=== PATIENT | male | born 1945 | race Caucasian/White ===

== ENCOUNTER 2023-07-14 07:47 | Observation (INO) | payer MEDICARE, SELFPAY ==
[2023-07-14] VITALS (9 sets, daily range): BP systolic 112–160; BP diastolic 74–116; PULSE 88–104; RESP 14–19; TEMP 36.2–36.4; O2SAT 95–100; BMI 29.5
--- NOTE | ~2023-07-14 | XR_ITS ---
EXAMINATION: XR SHOULDER, LEFT CLINICAL INFORMATION: Shoulder pain COMPARISON: None available. TECHNIQUE: Three views of the left shoulder. FINDINGS: Moderate joint narrowing of the glenohumeral joint with bone spurs of the inferior glenoid and inferior periarticular bone of the humeral head. There is no bone erosion. No soft tissue calcification. The acromioclavicular joint is normal. 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
--- NOTE | ~2023-07-14 | CT_ITS ---
EXAMINATION: CT ANGIOGRAM OF THE CHEST WITH AND WITHOUT CONTRAST (CT PULMONARY ANGIOGRAM FOR PE) CLINICAL INFORMATION: Reason for Exam chest pain, new afib COMPARISON: None available. TECHNIQUE: Prior to contrast administration, noncontrast localization images were obtained. Subsequently, multidetector volumetric imaging was performed from the thoracic inlet to below the diaphragms following the administration of 80 mL Omnipaque 350 intravenous contrast. No contrast reaction reported Sagittal, coronal, and MIP oblique sagittal reformatted images were obtained on the CT workstation, uploaded to PACS, and reviewed. This CT examination was performed using dose optimization techniques as appropriate, variously including the following: *Automated exposure control *Adjustment of mA and/or kV according to patient size (this includes techniques or standardized protocols for targeted exams where dose is matched to indication/reason for exam; i.e. extremities or head) *Use of iterative reconstruction technique Total exam dose-length product 356 mGy-cm FINDINGS: QUALITY OF STUDY/CONTRAST BOLUS: Satisfactory. PULMONARY ARTERIES: No pulmonary emboli. THORACIC AORTA: Nonopacified due to PE protocol LUNG: Tiny calcified granuloma in the right middle lobe. Lungs otherwise clear. No consolidations or masses. PLEURA: No pleural effusion or pneumothorax. MEDIASTINUM: Mild cardiomegaly. No pericardial effusion. No significant mediastinal or hilar adenopathy. No evidence of septal bowing or right heart strain. CORONARY ARTERY CALCIFICATION: Present CHEST WALL/AXILLA: No axillary or internal mammary lymphadenopathy. OSSEOUS STRUCTURES: Spondylitic change noted in the thoracic spine. No fracture. UPPER ABDOMEN: Mild hepatic steatosis. Mild to moderate reflux of contrast into the hepatic veins to suggest elevated right heart pressures. CT/CT angio chest PE protocol IMPRESSION: No evidence for acute PE. No active disease. VTE: negative
--- NOTE | ~2023-07-14 | XR_ITS ---
EXAMINATION: XR CHEST CLINICAL INFORMATION: Left arm pain, hypertension COMPARISON: None available. TECHNIQUE: 2 views of the chest were obtained. FINDINGS: No significant abnormality is noted involving the heart, lungs, mediastinum, bony thorax or soft tissues. XR/XR chest 2V IMPRESSION: No acute cardiopulmonary disease.
--- NOTE | 2023-07-14 07:59 | ECG_ITS ---
Test Reason : left arm pain Blood Pressure : / mmHG Vent. Rate : 102 BPM Atrial Rate : 000 BPM P-R Int : 000 ms QRS Dur : 096 ms QT Int : 362 ms P-R-T Axes : 000 011 024 degrees QTc Int : 471 ms Atrial fibrillation with rapid ventricular response Abnormal ECG No previous ECGs available Referred By: Generic ED Physician Electronically Signed By:SAMIA RODRIGUEZ
--- NOTE | 2023-07-14 08:08 | ED.GENADULT ---
HPI - General Adult General Chief complaint: Chest Pain Stated complaint: L Arm Pain No Injury Time Seen by Provider: 07/14/23 08:08 Source: patient Mode of arrival: ambulatory Limitations: no limitations History of Present Illness HPI narrative: Patient is a 77-year-old male with no reported past medical history presenting to the emergency department with complaint of left-sided chest pain radiating down left arm this morning. States symptoms began after he got up to go to the bathroom and sat back down on his bed. Reports pain is worse with exertion, has improved somewhat since onset. Denies recent fever, dyspnea, cough or other URI symptoms. Denies palpitations. Denies any recent falls or other trauma. Also complaining of neck pain. Denies any weakness, numbness, tingling to left arm. MD complaint: chest pain Onset (ago): hour(s) Location: chest, left and upper extremity Radiation: neck Severity: severe Quality: aching Pain Consistency: constant Exacerbating factors: movement Associated symptoms: denies other symptoms Treatments prior to arrival: none Related Data Allergies Allergy/AdvReac Type Severity Reaction Status Date / Time No Known Allergies Allergy Verified 07/14/23 08:17 Review of Systems Review of Systems: As per HPI. Yes all other systems are reviewed and are negative Constitutional: Constitutional: Reports as per HPI PMF Social History Social History Smoked in Last 30 Days: No Use of substances other than those prescribed or required for medical reasons: No Advance Directives: Yes Advance Directives Information Provided: Yes Advance Directives on File: No Physical Exam ED Vital Signs: Vital Signs - 24 hr 07/14/23 08:15 07/14/23 08:19 07/14/23 10:16 Temperature 97.6 F 97.6 F Pulse Rate 98 100 88 Respiratory Rate 17 16 16 Blood Pressure 160/114 H 157/116 H 155/100 H Pulse Oximetry 95 99 100 Oxygen Delivery Method Room Air Room Air Room Air 07/14/23 13:08 Temperature 9705 F H Pulse Rate 92 Respiratory Rate 19 Blood Pressure 144/93 H Pulse Oximetry 100 Oxygen Delivery Method Room Air BMI result Body Mass Index 29.5 Vital signs have been reviewed and appear to be correct. Blood pressure elevated. Heart rate normal. Respiratory rate normal. Temperature normal. Oxygen saturation normal. Const General: cooperative, healthy appearing and no acute distress Orientation/consciousness: oriented to person, oriented to place, oriented to time and patient oriented x3 Limitations: no limitations HENKY Head: Yes normocephalic and Yes atraumatic Ears: external ears normal General nose exam: Normal external nose present Face and sinus: Yes face symmetric Mouth: oropharynx normal and moist mucous membranes Throat: Yes uvula midline Eyes Pupils: Equal, round and reactive pupils present Neck Neck: Yes normal visual inspection and Yes supple Resp Effort & Inspection: normal respiratory effort and able to speak in complete sentences Auscultation: clear to auscultation bilaterally Cardio Rate: regular rate Rhythm: regular rhythm Heart sounds: S1 normal heart sound present and S2 normal heart sound present GI Palpation (GI): Soft to palpation and nontender Auscultation: normoactive bowel sounds General: Yes no CVA tenderness Back/Spine/Pelvis Back: no CVA tenderness Skin General skin exam: elasticity normal and turgor normal Neuro General: oriented to person, oriented to place, oriented to time, patient oriented x3, tone normal, moves all extremities, Normal light touch and pain sensation, no focal motor deficits, CN's II-XI intact bilaterally and deep tendon reflexes 2+ bilaterally Cranial nerves: Yes Equal, round and reactive pupils present Cognition (Neuro): normal cognition Motor exam (neuro): 5/5 motor strength present throughout, Normal motor muscle tone present throughout and Motor abnormalities not present Sensory Exam: Normal double simultaneous stimulation for sensation Extrem General: Yes full ROM, Yes no pedal edema and Yes no calf tenderness Psych Mental Status: mental status grossly normal Affect: normal affect Thought process: Normal thought process present NIH Stroke Scale Internal: Initial- Upon Arrival Time: 08:25 Level of Consciousness: Alert Level of Consciousness Questions: Answers both questions correctly Level of Consciousness Commands: Performs both tasks correctly Best Gaze: Normal Visual: No visual loss Facial Palsy: Normal Motor Arm (Right): No drift Motor Arm (Left): No drift Motor Leg (Right): No drift Motor Leg (Left): No drift Limb Ataxia: Absent Sensory: Normal Best Language: No aphasia Dysarthia: Normal Extinction and Inattention: No abnormality Score: 0 Medications Administered Discontinued Medications Generic Name Dose Route Start Last Admin Trade Name Freq PRN Reason Stop Dose Admin Aspirin 324 mg 07/14/23 08:23 07/14/23 08:27 Aspirin 81 Mg Tab.Chew PO 07/14/23 08:24 324 mg ONCE ONE Administration Sodium Chloride 1,000 mls @ 999 mls/hr 07/14/23 08:45 07/14/23 10:17 Ns IV 07/14/23 09:45 Infused .Q1H1M JORGE Infusion Iohexol 65 ml 07/14/23 10:56 07/14/23 10:56 Iohexol 350 Mg/Ml 100 Ml Infus..Btl IV 07/14/23 10:57 65 ml ONCE ONE Administration Medical Decision Making Medical Decision Making [facility] Narrative: Patient is a 77-year-old male with no reported past medical history presenting to the emergency department with complaint of left-sided chest pain radiating down left arm this morning. On exam patient is awake, A+Ox3, BP elevated, VS otherwise WNL, afebrile, normal neurological exam without focal deficits, physical exam findings as above. Given reported symptoms and physical exam findings, initial differential includes ACS/[place]/ischemia, new onset afib, PE. Unlikely pneumothorax, esophageal rupture, tamponade. EKG notable for afib with RVR, rate 102. Will treat with IV fluids, ASA ordered. Plan: labs, CXR Labs notable for negative troponin x2, otherwise unremarkable. X-ray chest notable for no acute disease. CTA chest negative for PE My interpretation is in agreement with the radiologist's interpretation. Records obtained from PCP office, and no documented history of afib, patient also denies any history of afib. JESSICA-VASC score of 2. Case discussed with Dr. Mireles who accepts admission to medicine. Differential Diagnosis Differential Diagnoses: The differential diagnosis associated with the presentation includes As per [facility] Admission/Observation Consideration of admission/observation: Escalation of care including admission/observation considered Consult Healthcare Provider Management of the patient was discussed with: Hospitalist Lab Data [facility] Lab Attestation statement: I reviewed the patient's lab results. As per [facility] 07/14/23 08:34 07/14/23 08:34 Labs: Lab Results 07/14/23 07/14/23 Range/Units 08:34 12:04 WBC 6.6 (4.8-10.8) X10*3/uL RBC 4.81 (4.60-5.80) X10*6/uL Hgb 15.4 (14.0-18.0) g/dl Hct 44.7 (42.0-52.0) % MCV 92.9 (80.0-98.0) fL MCH 32.0 (27.0-33.0) pg MCHC 34.5 (31.0-36.0) g/dl RDW 12.7 (11.0-16.0) % Plt Count 251 (160-400) X10*3/uL MPV 10.1 (9.4-12.4) fL Immature Gran % (Auto) 0.3 (0.0-0.4) % Neut % (Auto) 65.6 (45-73) % Lymph % (Auto) 26.8 (20-40) % [place] % (Auto) 5.9 (2-11) % Eos % (Auto) 1.1 (0-4) % Baso % (Auto) 0.3 (0-2) % Lymph # (Auto) 1.8 (1.2-4.9) X10*3/uL [place] # (Auto) 0.4 (0.1-1.2) X10*3/uL Eos # (Auto) 0.1 (0.0-0.4) X10*3/uL Baso # (Auto) 0.0 (0.0-0.2) X10*3/uL Abs Immat Gran (auto) 0.02 (0.00-0.03) X10*3/uL Absolute Neuts (auto) 4.4 (2.0-8.3) x10*3/uL Absolute Nucleated RBC 0.000 (0.0-0.012) X10*3/uL Nucleated RBC % (auto) 0.0 (0.0-0.2) /100WBC PT 12.0 (11.1-13.3) SEC INR 1.0 (0.9-1.1) Sodium 140 (135-145) mmol/L Potassium 4.2 (3.3-5.1) mmol/L Chloride 107 (96-108) mmol/L Carbon Dioxide 24 (22-29) mmol/L Anion Gap 13 (12-20) BUN 9 (9-16) mg/dL Creatinine 0.79 (0.5-1.4) mg/dL Estim Creat Clear Calc 92.2 Estimated GFR > 60 Random Glucose 93 (60-115) mg/dL Calcium 9.0 (8.4-10.2) mg/dL Total Bilirubin 0.8 (0.0-1.0) mg/dL AST 23 (5-37) U/L ALT 17 (0-40) U/L Alkaline Phosphatase 66 (39-117) U/L Troponin I High Sens 2.8 3.5 (<3.5-35.0) ng/L Total Protein 7.4 (6.5-8.0) g/dL Albumin 3.8 (3.5-5.0) g/dL Independent Interpretation I performed an independent interpretation of an: Plain X-Ray and CT Scan Interpretation: No acute cardiopulmonary disease on CXR CTA chest negative for PE Radiology Impression Discussion of test interpretation with radiology: I have reviewed the radiologist's reading. Radiologist Impression: XR/XR chest 2V IMPRESSION: No acute cardiopulmonary disease. CT/CT angio chest PE protocol IMPRESSION: No evidence for acute PE. No active disease. VTE: negative External Record Review External record reviewed: Inpatient record, Office record and Outpatient record Discharge Plan Discharge Patient Disposition: Admitted As Inpatient Print Language: Indonesian
--- NOTE | 2023-07-14 08:22 | PC.NURSE ---
Pt presents to ED from home, reports left sided chest pain radiating down left arm since this morning (does not know time). Pt reports he woke up and went to use bathroom, pain started after that. Pt unable to describe the pain, 12/23, does worsen with exertion. Pt denies any recent falls, injuries, cough or illnesses. Denies any SOB, N/V/D, fevers. Pt is alert and oriented, breathing even and unlabored, skin warm and dry. Pt placed on bedside front desk monitor, ?afib.
[2023-07-14] MEDS: Aspirin 81 MG TAB.CHEW 324 MG PO (08:27)
[2023-07-14 08:38] LABS: MANUAL DIFF FLAG NO
[2023-07-14 08:39] LABS: Basophils Percent Auto 0.3 % (0-2); Eosinophils Absolute Auto 0.1 X10*3/uL (0.0-0.4); Eosinophils Percent Auto 1.1 % (0-4); Hematocrit 44.7 % (42.0-52.0); Hemoglobin 15.4 g/dl (14.0-18.0); Imm Gran Abs Auto 0.02 X10*3/uL (0.00-0.03); Imm Gran Pct Auto 0.3 % (0.0-0.4); Lymphocytes Absolute Auto 1.8 X10*3/uL (1.2-4.9); Lymphocytes Percent Auto 26.8 % (20-40); Mean Corpuscular HGB Conc 34.5 g/dl (31.0-36.0); Mean Corpuscular Volume 92.9 fL (80.0-98.0); Mean Platelet Volume 10.1 fL (9.4-12.4); Monocytes Absolute Auto 0.4 X10*3/uL (0.1-1.2); Monocytes Percent Auto 5.9 % (2-11); Neutrophils Absolute Auto 4.4 x10*3/uL (2.0-8.3); Neutrophils Percent Auto 65.6 % (45-73); Platelet Count 251 X10*3/uL (160-400); Red Blood Count 4.81 X10*6/uL (4.60-5.80); Red Cell Distribution Width 12.7 % (11.0-16.0); White Blood Count 6.6 X10*3/uL (4.8-10.8)
[2023-07-14] MEDS: 0.9 % Sodium Chloride 1,000 ML 999 ML IV (08:48)
[2023-07-14 08:57] LABS: Troponin-I High Sensitivity 2.8 ng/L (<3.5-35.0)
[2023-07-14 09:21] LABS: Alanine Aminotransferase 17 U/L (0-40); Albumin Level 3.8 g/dL (3.5-5.0); Alkaline Phosphatase 66 U/L (39-117); Anion Gap 13 (12-20); Aspartate Amino Transferase 23 U/L (5-37); Bilirubin Total 0.8 mg/dL (0.0-1.0); Blood Urea Nitrogen 9 mg/dL (9-16); Carbon Dioxide 24 mmol/L (22-29); Chloride 107 mmol/L (96-108); Creatinine Clr Calc Pharmacy 92.2; Estimated Glomerular Filt Rate > 60; Glucose Random 93 mg/dL (60-115); Potassium 4.2 mmol/L (3.3-5.1); Sodium 140 mmol/L (135-145); Total Protein 7.4 g/dL (6.5-8.0)
--- NOTE | 2023-07-14 10:15 | ECG_ITS ---
Test Reason : repeat ekg Blood Pressure : / mmHG Vent. Rate : 094 BPM Atrial Rate : 000 BPM P-R Int : 000 ms QRS Dur : 100 ms QT Int : 378 ms P-R-T Axes : 000 012 002 degrees QTc Int : 472 ms Atrial fibrillation Abnormal ECG When compared with ECG of 14-JUL-2023 08:01, No significant change was found Referred By: Aleida Nagy Electronically Signed By:SAMIA RODRIGUEZ
[2023-07-14] MEDS: iohexoL 350 MG/ML 100 ML INFUS..BTL 65 ML IV (10:56)
[2023-07-14 12:34] LABS: Troponin-I High Sensitivity 3.5 ng/L (<3.5-35.0)
--- NOTE | 2023-07-14 14:12 | P.HPHOSP_ITS ---
History of Present Illness Date of Service: 07/14/23 Attending physician on admission: Jorge Mireles Chief Complaint: chest pain , new afib 77 y/oM with dyslipidemia ,has lower ext claudication hx for which he is taking aspirin -came with complaint of left-sided chest pain radiating down left arm this morning. States symptoms coming back from bathroom and sat on bed ,says chest pain is squeezing ,also had left arm pain, arm pain more when try to open door.he tried tylenol did not help.Reports pain is worse with exertion, has improved somewhat since onset. Denies recent fever, dyspnea, cough or other URI symptoms. Denies any new complaint of shortness of breath or abdominal pain or fever or chills or nausea or vomiting Denies cough or weakness or numbness. labs , imaging ekg reviewed: h/h : 15.4/44.7 bmp-seems fine tropx2 -neg tsh: 0.88 CT/CT angio chest PE protocol: No evidence for acute PE. No active disease. VTE: negative in ed: patient received asa and admission given for chest pain and new afib onset. Review of Systems 2 Review of Systems: as above. Yes all other systems are reviewed and are negative [facility] Social History Smoked in Last 30 Days: No Use of substances other than those prescribed or required for medical reasons: No Advance Directives: Yes Advance Directives Information Provided: Yes Advance Directives on File: No Meds Allergies Allergy/AdvReac Type Severity Reaction Status Date / Time No Known Allergies Allergy Verified 07/14/23 08:17 Active Medications: Current Medications Aspirin (Aspirin Enteric Coated 81 Mg Tablet.) 81 mg PO DAILY [facility] Metoprolol Tartrate (Metoprolol Tartrate 25 Mg Tablet) 25 mg PO BID [facility]; Protocol Sodium Chloride (0.9 % Sodium Chloride Flush 3 Ml Syringe) 3 ml [facility] Home Medications ?Medication ?Instructions ?Recorded ?Confirmed ?Last Taken ?Type aspirin 81 mg chewable tablet 81 mg PO DAILY 07/14/23 07/14/23 07/14/23 History Physical Exam 2 Vital Signs and Narrative: Vital Signs: Last Vital Signs Temp 9705 F H 07/14/23 13:08 Pulse 92 07/14/23 13:08 Resp 19 07/14/23 13:08 BP 144/93 H 07/14/23 13:08 Pulse Ox 100 07/14/23 13:08 O2 Del Method Room Air 07/14/23 13:08 BMI result Body Mass Index 29.5 Appearance: Alert.? Oriented X3.? not in distress.? cvs: irregular rythem , [id number] . res: clear to auscultation ,no rhonchii or wheezing abd: no rebound or guarding ,nt, bs present. ext pulses present , no cyanosis, left shoulder area -no point tenderness or erythema ,rom-seems somewhat fine . neuro: axo3 , nonfocal. Results Labs 07/14/23 08:34 07/14/23 08:34 Labs: Laboratory Results - last 24 hr 07/14/23 07/14/23 08:34 12:04 MCV 92.9 MCH 32.0 MCHC 34.5 RDW 12.7 Plt Count 251 MPV 10.1 Immature Gran % (Auto) 0.3 Neut % (Auto) 65.6 Lymph % (Auto) 26.8 [place] % (Auto) 5.9 Eos % (Auto) 1.1 Baso % (Auto) 0.3 Lymph # (Auto) 1.8 [place] # (Auto) 0.4 Eos # (Auto) 0.1 Baso # (Auto) 0.0 Abs Immat Gran (auto) 0.02 Absolute Neuts (auto) 4.4 Absolute Nucleated RBC 0.000 Nucleated RBC % (auto) 0.0 PT 12.0 INR 1.0 Anion Gap 13 Estim Creat Clear Calc 92.2 Estimated GFR > 60 Random Glucose 93 Calcium 9.0 Total Bilirubin 0.8 AST 23 ALT 17 Alkaline Phosphatase 66 Troponin I High Sens 2.8 3.5 Total Protein 7.4 Albumin 3.8 Imaging Radiologist's Impressions: Impressions Chest X-Ray 07/14/23 09:13 IMPRESSION: No acute cardiopulmonary disease. Chest CTA 07/14/23 10:57 IMPRESSION: No evidence for acute PE. No active disease. VTE: negative Assessment and Plan (1) New onset a-fib: Status: Acute Plan 77 y/o patient with chest pain and new onset afib. chest pain/afib: moniter on tele tsh normal cta -negative for pulm embolism continue aspirin ,added metoprolol for rate control added echo,cardiology eval. chadvasc is around 2-3 range.will add lovenox Shoulder pain: added shoulder xray,tylenol, lidocaine patch. pt/ot eval. possible hx of PAD(leg claudication): continue above. will place obervation admission -new onset afib /chest pain -need further workup and tele monitering as well as cardiology expert eval. Above management discussed with the patient detail length he understand and in agreement with the above plan, time spent 70 minute, patient full code. Quality Stroke Does the patient have a stroke diagnosis?: No VTE Prior VTE?: No VTE Risk Level:: Medical - moderate - high VTE Device Contraindication: N/A - Device Ordered VTE Drug Contraindication: N/A - Med Ordered
[2023-07-14 14:52] LABS: TSH reflex Free T4 0.88 uIU/mL (0.32-4.0)
--- NOTE | 2023-07-14 14:52 | PHA.MEDREC ---
Pharmacy Consult ? Medication Reconciliation Pharmacy has completed the medication reconciliation. Patient reported only a baby aspirin daily. Della Olvera, WilfredoD
[2023-07-14] MEDS: Acetaminophen 325 MG TABLET 975 MG PO ×2 (15:48→20:22)
[2023-07-14] MEDS: Lidocaine 4 % Patch ADH..PATCH 1 PATCH TRANSDERMA (15:49)
[2023-07-14] MEDS: Enoxaparin Sodium 40 MG/0.4 ML SYRINGE SUBCUT (15:50)
[2023-07-14] MEDS: 0.9 % Sodium Chloride Flush 3 ML SYRINGE IVFLUSH ×2 (15:51→21:47)
[2023-07-14] MEDS: Omeprazole 20 MG CAPSULE.DR PO (17:52)
[2023-07-14] MEDS: Metoprolol Tartrate 25 MG TABLET PO (20:22)
--- NOTE | 2023-07-14 21:38 | PC.NURSE ---
This sql report writer assumed care of this Pt at 1900. Pt A&Ox3, reports 6/10 shoulder pain, Pt medicated Per MAY. A-fib on monitor rate in the 90s-low 100s. Report complete Pt will be transported to [facility]. Pt and family member aware of plan.
[2023-07-15] VITALS: BP 144/97; PULSE 85; RESP 18; TEMP 36.6; O2SAT 97
[2023-07-15 04:00] VITALS: BP 118/76; PULSE 83; RESP 18; TEMP 36.3; O2SAT 98
[2023-07-15] MEDS: Omeprazole 20 MG CAPSULE.DR PO (06:23)
[2023-07-15] MEDS: Acetaminophen 325 MG TABLET 975 MG PO (06:23)
--- NOTE | 2023-07-15 07:00 | CA_ITS ---
Transthoracic Echocardiogram Patient (Last, First, Middle): Tyler Torres A Gender: Male Date of : 1945 Age: 77 Procedure Date: 07/15/2023 Procedure Type: Transthoracic Echocardiogram Location: [facility] [place] Height: 182.88 cm Weight: 98.43 kg BSA: 2.21 m2 Heart Rate: bpm BP: 118 / 76 mmHg [employer]: SB Referring MD: Jorge Mireles MD Symptoms: new onset afib Study Quality: Adequate ECG Rhythm: Atrial Fibrillation Conclusions: - The left ventricular systolic function is mildly decreased. The visually estimated ejection fraction is between 40-45%. - There is moderate calcification of the aortic valve. - There is mild mitral annular calcification. 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 Findings Procedure Information Contrast agent, definity, is being given per protocol without apparent complications. Left Ventricle Mildly increased left ventricular cavity size. There is normal left ventricular wall thickness. The left ventricular systolic function is mildly decreased. The visually estimated ejection fraction is between 40-45%. Diastolic function is indeterminate on the basis of available data. Right Ventricle Normal right ventricular cavity size. There is mildly decreased right ventricular systolic function. Atria Both atria are normal in size. Aortic Valve There is moderate calcification of the aortic valve. There is no aortic valve stenosis. There is no aortic valve regurgitation. Mitral Valve There is mild mitral annular calcification. There is trace mitral valve regurgitation. There is no mitral valve stenosis. Pulmonic Valve The pulmonic valve is likely normal. Tricuspid Valve Normal tricuspid valve structure. There is no tricuspid valve regurgitation. Tricuspid regurgitation envelope is inadequate for calculation of right ventricular systolic pressure. Great Vessels There is mild dilatation of the ascending aorta measuring 4.10 cm. Venous The inferior vena cava is normal in size and collapses greater than 50% with inspiration. Pericardium/Pleural There is no evidence of pericardial effusion. Prior Study Comparison No prior study available for comparison. Measurements 2D Linear Measurements IVSd: 0.94 0.6-0.9/0.6-1.0 cm LVIDd: 5.89 3.9-5.3/4.2-5.9 cm LVIDd Index: 2.67 2.4-3.2/2.2-3.1 cm/m2 LVIDs: 4.74 2.0-3.6 cm LVPWd: 0.99 0.7-1.1 cm LA Diam: 5.10 2.7-3.8/3.0-4.0 cm LAIDs Index: 2.31 1.5-2.3 cm/m2 LV Mass: 284.64 67-162/88-224 g LV Mass Index: 128.80 43-95/49-115 g/m2 LVOT Diam: 2.30 3.0+(-)1.3 cm 2D Systolic Function EF 4C: 50.20 >55% EF 2C: 42.50 >55% EF BiP: 45.90 >55% Mitral Valve MV Pk E: 0.72 Aortic Valve AoV Pk Flo: 1.19 AoV Mn Flo: 0.88 AoV VTI: 0.21 AoV Pk Grad: 6.00 Aov Mn Grad: 3.00 RAGHAV Cont.VTI: 1.96 LVOT LVOT Pk Flo: 0.57 LVOT Mn Flo: 0.39 LVOT VTI: 0.10 LVOT Pk Grad: 1.00 LVOT Mn Grad: 1.00 LVOT Diam: 2.30 LVOT Area: 4.15 Diastolic Function MV Pk E: 0.72 Right Ventricle TAPSE (mm): 17.00 TVS' Flo: 9.00 Tricuspid Valve TR Pk Flo: 2.00 TR Pk Grad: 16.00 RA Press: 15.00 RVSP: 31.00 Great Vessels Aorta Sinus of Valsalva: 3.20 2.0-3.5 cm Ao Asc: 4.10 2.1-3.4 cm Pulmonary Valve PV Pk Flo: 0.51 Peak PV Grad: 1.00 Updated in Other Vendor System with Status of Final Bethel Taylor MD electronically signed on 07/15/2023 11:42:28 AM with status of Final
[2023-07-15 08:00] VITALS: BP 126/90; PULSE 98; RESP 20; TEMP 36.4; O2SAT 98
[2023-07-15 08:03] VITALS: BP 126/90
[2023-07-15] MEDS: Lidocaine 4 % Patch ADH..PATCH 1 PATCH TRANSDERMA (08:03)
[2023-07-15] MEDS: Metoprolol Tartrate 25 MG TABLET PO (08:03)
[2023-07-15] MEDS: Aspirin Enteric Coated 81 MG TABLET.DR PO (08:03)
[2023-07-15] MEDS: Enoxaparin Sodium 100 MG/ML SYRINGE SUBCUT (08:06)
[2023-07-15 08:07] VITALS: BP 126/90
[2023-07-15] MEDS: 0.9 % Sodium Chloride Flush 3 ML SYRINGE IVFLUSH (08:07)
--- NOTE | 2023-07-15 09:17 | MHC.CM.PN ---
Addendum entered by Rasheeda Sal RN 07/15/23 09:32: PCP OFFICE DOES NOT HAVE HCP ON FILE. 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 PT'S GOAL IS TO DC [facility], PT DENIES NEEDING HOME SERVICES FOR HIMSELF. PT VERIFIES PCP IS ARIS MARK AT [facility] AND THEY SHOULD HAVE COPY OF PT'S HCP AT PCP OFFICE AND CM TO CONTACT PCP FOR COPY.
--- NOTE | 2023-07-15 10:33 | PM.CNCAR ---
History of Present Illness History of Present Illness Date of Service: 07/15/23 Chief complaint: afib Narrative: This is a cardiology consultation regarding chest pain atrial fibrillation. The patient gives me a different history than what is described in H and P. In the H&P, there is mention left-sided chest pain radiating down left arm. However, he tells me that his took a fall and in that context tried to help her get back up and then that gave him left arm pain. Then he came to the ER and in this context, it seems that he was diagnosed with atrial fibrillation. Patient himself does not have any history of atrial fibrillation in the past but unclear when he had a prior EKG. Otherwise, no major cardiac issues like cardiomyopathy or coronary disease. Otherwise, he states he feels okay. Review of Systems Review of Systems: Yes all other systems are reviewed and are negative Constitutional: Constitutional: Reports as per HPI and Reports no additional constitutional complaints Eyes: Eyes: Reports as per HPI and Denies no additional eye complaints ENT: Denies system reviewed and no additional complaints, except as documented and Reports as per HPI Cardiovascular: Cardiovascular: Reports as per HPI, Reports no additional cardiovascular complaints, Denies acrocyanosis, Denies cool extremities, Denies chest pain, Denies leg edema, Denies lightheadedness, Denies palpitations and Denies dyspnea Respiratory: Respiratory: Reports as per HPI, Denies no additional respiratory complaints and Denies dyspnea Gastrointestinal: Gastrointestinal: Reports as per HPI and Denies no additional gastrointestinal complaints Genitourinary: Genitourinary: Reports no additional male genitourinary complaints and Reports as per HPI Musculoskeletal: Musculoskeletal: Reports no additional musculoskeletal complaints and Reports as per HPI Integumentary/Breasts: Skin/Breast: Reports system reviewed and no additional complaints, except as docu Neurologic: Reports system reviewed and no additional complaints, except as documented and Reports as per HPI Psychiatric: Psychiatric: Reports no additional psychiatric complaints and Reports as per HPI Endocrine: Endocrine: Reports no additional endocrine complaints, Reports as per HPI and Denies palpitations Hematologic/Lymphatic: Hematologic/Lymphatic: Reports no additional hematologic/lymphatic complaints and Reports as per HPI Allergic/Immunologic: Allergic/Immunologic: Reports no additional allergic/immunologic complaints and Reports as per HPI [facility] Family History Pertinent family history: No pertinent family history Social History Social History Household Members: Spouse Housing: House Do you presently have visiting nurse or other home services: Yes ([facility]NA) Patient Tobacco Use Status: Never used Tobacco service: No Meds Allergies Allergy/AdvReac Type Severity Reaction Status Date / Time No Known Allergies Allergy Verified 07/14/23 08:17 Active Medications: Current Medications Acetaminophen (Acetaminophen 325 Mg Tablet) 975 mg PO TID [facility] Last Admin: 07/15/23 06:23 Dose: 975 mg Aspirin (Aspirin Enteric Coated 81 Mg Tablet.) 81 mg PO DAILY [facility] Last Admin: 07/15/23 08:03 Dose: 81 mg Enoxaparin Sodium (Enoxaparin Sodium 100 Mg/Ml Syringe) 100 mg SUBCUT Q12H [facility] Last Admin: 07/15/23 08:06 Dose: 100 mg Lidocaine (Lidocaine 4 % Patch Adh..Patch) 1 patch TRANSDERMA DAILY [facility]; Protocol Last Admin: 07/15/23 08:03 Dose: 1 patch Metoprolol Tartrate (Metoprolol Tartrate 25 Mg Tablet) 25 mg PO BID [facility]; Protocol Last Admin: 07/15/23 08:03 Dose: 25 mg Omeprazole (Omeprazole 20 Mg Capsule.) 20 mg PO BID@0630,1630 [facility] Last Admin: 07/15/23 06:23 Dose: 20 mg Sodium Chloride (0.9 % Sodium Chloride Flush 3 Ml Syringe) 3 ml IVFLUSH QSHIFT [facility] Last Admin: 07/15/23 08:07 Dose: 3 ml Home Medications ?Medication ?Instructions ?Recorded ?Confirmed ?Last Taken ?Type aspirin 81 mg chewable tablet 81 mg PO DAILY 07/14/23 07/14/23 07/14/23 History Physical Exam Vital Signs: Vital Signs: Last Vital Signs Temp 97.5 F 07/15/23 08:00 Pulse 98 07/15/23 08:00 Resp 20 07/15/23 08:00 BP 126/90 H 07/15/23 08:07 Pulse Ox 98 07/15/23 08:00 O2 Del Method Room Air 07/15/23 08:00 BMI result Body Mass Index 29.5 Const: General: comfortable and no acute distress Orientation/consciousness: patient oriented x3 HEENT: Other: Unremarkable Head: Yes normal to inspection Neck: Neck: Yes normal visual inspection Chest: Chest palpation & inspection: normal inspection of the chest Resp: Auscultation: clear to auscultation bilaterally Cardio: Palpation: normal PMI Heart sounds: S1 normal heart sound present, S2 normal heart sound present, no gallops, no murmurs and no rubs GI: Palpation (GI): Soft to palpation Back/Spine/Pelvis: Other: unremarkable Skin: General skin exam: no rashes or lesions noted Neuro: General: patient oriented x3 Extrem: General: Yes normal to inspection Psych: Mental Status: mental status grossly normal Objective Labs and Meds 07/14/23 08:34 07/14/23 08:34 Lab results: Laboratory Results - last 24 hr 07/14/23 07/14/23 08:34 12:04 Troponin I High Sens 3.5 TSH 0.88 ECG Interpretation: EKG with atrial fibrillation at a rate of 102/Min. Repeat EKGs also similar. Imaging Radiologist's impression: Impressions Chest CTA 07/14/23 10:57 IMPRESSION: No evidence for acute PE. No active disease. VTE: negative Shoulder X-Ray 07/14/23 16:05 IMPRESSION: Moderate degenerative joint disease of the glenohumeral joint. Assessment and Plan (1) Atrial fibrillation by electrocardiogram: Status: Acute Atrial fibrillation of uncertain duration. Acute with beta-blockers. Start Eliquis. With his age, frailty, probably rate control only. (2) Precordial chest pain: Status: Acute Variable history as admission documentation described left-sided chest pain going to left arm but to me he states the left arm pain started after he lifted his . Any case, no ischemic findings on the EKG and troponin is also normal. We could consider outpatient stress test. Echocardiogram is pending. Procedures Date of Service Date of Service: 07/15/23
--- NOTE | 2023-07-15 11:40 | MHC.CM.PN ---
P.T. NOT RECOMMMENDING HOME SERVICES
--- NOTE | 2023-07-15 11:59 | PM.DS ---
DS: Providers Provider Date of Service: 07/15/23 Date of admission: 07/14/23 14:11 Date of discharge: 07/15/23 Primary care physician: Unknown Physician Consults: 07/14/23 15:59 Consult to Cardiology Routine Consulting Provider: [facility] Reason for consultation: chest pain /new onset afib Has provider been notified: No DS: Diagnosis Discharge Diagnosis (1) Atrial fibrillation by electrocardiogram: Status: Acute (2) Precordial chest pain: Status: Acute DS: Summary Hospital Course Hospital Course: 77 y/oM with dyslipidemia ,has lower ext claudication hx for which he is taking aspirin -came with complaint of left-sided chest pain radiating down left arm this morning. States symptoms coming back from bathroom and sat on bed ,says chest pain is squeezing ,also had left arm pain, arm pain more when try to open door.he tried tylenol did not help.Reports pain is worse with exertion, has improved somewhat since onset. Denies recent fever, dyspnea, cough or other URI symptoms. Denies any new complaint of shortness of breath or abdominal pain or fever or chills or nausea or vomiting Denies cough or weakness or numbness. labs , imaging ekg reviewed: h/h : 15.4/44.7 bmp-seems fine tropx2 -neg tsh: 0.88 CT/CT angio chest PE protocol: No evidence for acute PE. No active disease. VTE: negative in ed: patient received asa and admission given for chest pain and new afib onset. Hospital course: Patient came to the hospital because of chest pain and left arm pain, palpitation: Further workup including troponin flat, left shoulder arthritis, echo ordered, EKG showed AFib-started on metoprolol, Lovenox, cardiology consulted. Subsequently patient heart rate is improving, also pain is seems to be improved, echo showed 40-45% EF. Cardio recommended to switch the patient to Eliquis p.o. as well as continue metoprolol 25 mg b.i.d. upon discharge. Patient is going home with metoprolol 25 mg p.o. b.i.d. Plan: Continue metoprolol 25 mg p.o. b.i.d. Eliquis 5 mg p.o. b.i.d. Above management discussed with the patient in detail length he understand and in agreement with the above plan, time spent 40 minutes and 50% time spent on counseling. Time Attestation Total time managing care of this patient today: 40 mintues. Discharge Coordination Time (in mins): 40 min Quality: Safe Use of Opioids Does Pt have an Active Cancer Diagnosis on the Problem List?: No Quality: Stroke Does the patient have a stroke diagnosis?: No Physical Exam Vital Signs: Vital Signs: Last Vital Signs Temp 97.5 F 07/15/23 08:00 Pulse 98 07/15/23 08:00 Resp 20 07/15/23 08:00 BP 126/90 H 07/15/23 08:07 Pulse Ox 98 07/15/23 08:00 O2 Del Method Room Air 07/15/23 08:00 BMI result Body Mass Index 29.5 Appearance: Alert.? Oriented X3.?? Eyes: Pupils equal, round and reactive to light.? Sclera nonicteric.? ENT: Pharynx normal.? Moist mucous membranes. cvs: irregular rythem, [id number] . res: clear to auscultation ,no rhonchii or wheezing abd: no rebound or guarding ,nt, bs present. ext pulses present , no cyanosis . neuro: axo3 , nonfocal. DS: Data Data Completed and Pending Labs on day of discharge: Laboratory Results - last 24 hr 07/14/23 07/14/23 08:34 12:04 Troponin I High Sens 3.5 TSH 0.88 Imaging Chest x-ray: Radiologist's impression: ITS Impressions Chest X-Ray 07/14/23 09:13 IMPRESSION: No acute cardiopulmonary disease. Chest CTA 07/14/23 10:57 IMPRESSION: No evidence for acute PE. No active disease. VTE: negative Shoulder X-Ray 07/14/23 16:05 IMPRESSION: Moderate degenerative joint disease of the glenohumeral joint. Additional Comments Additional comments: echo: The left ventricular systolic function is mildly decreased. The visually estimated ejection fraction is between 40-45%. - There is moderate calcification of the aortic valve. - There is mild mitral annular calcification. 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 Discharge Plan Discharge Anticipated Discharge Date/Time: 07/15/23 11:53 Patient Disposition: Home, Self-Care Discharge Diagnosis: new afib Referrals: Physician,Unknown J [Primary Care Provider] - 1 Week Discharge Medications: New omeprazole 20 mg Capsule,Delayed Release(Dr/Ec) 20 mg PO DAILY Qty: 60 0RF metoprolol tartrate 25 mg Tablet 25 mg PO BID Qty: 180 0RF Protocol: Hold for SBP/HR < HOLD for SBP < : 90 HOLD for HR < : 60 Eliquis 5 mg Tablet 5 mg PO BID Qty: 120 0RF acetaminophen 325 mg Tablet 975 mg PO TID Qty: 30 0RF lidocaine [Lidocaine Pain Relief] 4 % Adhesive Patch,Medicated 1 patch transdermal DAILY Qty: 7 0RF Protocol: Apply to: Apply to: affected area Discontinued aspirin 81 mg Tablet,Chewable 81 mg PO DAILY Discharge Orders: Discharge Order (Routine); Ordered 07/15/23 Ordered By: Jorge Mireles Diet: Advance to usual diet Activity on Discharge: As tolerated Stand Alone Forms: Patient Portal Discharge page Print Language: Citizen Of [place] Care Plan Goals: Continue metoprolol 25 mg p.o. b.i.d., Eliquis 5 mg p.o. b.i.d., follow-up with the PCP and Cardiology outpatient. Health Concerns: As above. Plan of Treatment: As above. Assessment: As above.
--- NOTE | 2023-07-15 12:53 | MHC.CM.PN ---
cm met w/pt to complete a hcp as his pcp office does not have one on file, pt named his 's son Elmer Burger [phone] as [facility] and no alternate, copy uploaded to [facility] and placed in chart. pt medically cleared for dc home self care, [place] [facility] [place] and will self transport
== END 2023-07-15 13:15 | disposition home or self-care (01) ==
LOC: HO.ED 13:46 → HO.EDOVER 14:22 → HO.IMC 19:38
PROVIDERS: Registered Nurse Emergency; Admitting Provider Internal Medicine; Emergency Provider Emergency Medicine; PCP Physician Assistant; Visit Provider Internal Medicine
DX: I48.91 Unspecified atrial fibrillation (principal); R07.2 Precordial pain; R07.9 Chest pain, unspecified; M54.2 Cervicalgia; M79.602 Pain in left arm; I10 Essential (primary) hypertension; R94.31 Abnormal electrocardiogram [ECG] [EKG]; M25.512 Pain in left shoulder; E78.5 Hyperlipidemia, unspecified
CPT/HCPCS: 36415; 71046; 71275; 73030; 80053; 84443; 84484; 85025; 85610; 93005; 93306; 96360; 96361; 96372; 97162; 97166; 99222; 99285; J1650; Q9957; Q9967

== ENCOUNTER → 2023-07-14 07:59 | Outpatient (BNV) | payer MEDICARE, SELFPAY | PROVIDERS: Admitting Provider Internal Medicine; Emergency Provider Emergency Medicine; Visit Provider Internal Medicine | DX: I48.91 Unspecified atrial fibrillation (principal) | CPT/HCPCS: 93010 ==

== ENCOUNTER 2023-07-14 14:11 | Outpatient (BNV) | payer MEDICARE, SELFPAY | END 2023-07-15 07:00 | PROVIDERS: Admitting Provider Internal Medicine; Emergency Provider Emergency Medicine; Visit Provider Internal Medicine | DX: I35.8 Other nonrheumatic aortic valve disorders (principal); I34.81 Nonrheumatic mitral (valve) annulus calcification | CPT/HCPCS: 93306 ==

== ENCOUNTER → 2023-07-14 14:11 | Outpatient (BNV) | payer MEDICARE, SELFPAY | PROVIDERS: Admitting Provider Internal Medicine; Emergency Provider Emergency Medicine; Visit Provider Internal Medicine | DX: I48.91 Unspecified atrial fibrillation (principal); R07.2 Precordial pain | CPT/HCPCS: 99222; 99239 ==

== ENCOUNTER → 2023-07-14 14:11 | Outpatient (BNV) | payer MEDICARE, SELFPAY | PROVIDERS: Admitting Provider Internal Medicine; Emergency Provider Emergency Medicine; Visit Provider Internal Medicine | DX: I48.91 Unspecified atrial fibrillation (principal); R07.2 Precordial pain | CPT/HCPCS: 99223 ==

== ENCOUNTER 2024-05-25 09:43 | Emergency (ER) | payer MEDICARE, SELFPAY ==
--- NOTE | 2024-05-25 | ECG_ITS ---
Test Reason : AFIB Blood Pressure : */* mmHG Vent. Rate : 129 BPM Atrial Rate : * BPM P-R Int : * ms QRS Dur : 92 ms QT Int : 356 ms P-R-T Axes : * 13 -78 degrees QTcB Int : 521 ms Atrial fibrillation with rapid ventricular response Nonspecific ST and T wave abnormality Abnormal ECG When compared with ECG of 14-Jul-2023 10:46, Nonspecific T wave abnormality now evident in Lateral leads Referred By: Generic ED Physician Electronically Signed By: SAMIA RODRIGUEZ
[2024-05-25 09:51] VITALS: BP 137/52; PULSE 126; RESP 18; TEMP 36.5; O2SAT 97; BMI 30.4
[2024-05-25 10:28] LABS: MANUAL DIFF FLAG NO
[2024-05-25 10:33] LABS: Appearance Urine Cloudy; Color Urine Yellow; Glucose Urine UA Negative (Negative); Leukocyte Esterase Urine Large (3+) (Negative); Nitrite Urine Negative (Negative); PH 5.5 (5.0-9.0); Specific Gravity - Urine 1.015 (1.005-1.025); UMIC TRIGGER UACC YES; Urine Blood Large (3+) (Negative); Urine Ketones Negative (Negative); Urine Protein Negative (Neg-Trace)
[2024-05-25 10:33] LABS: Basophils Percent Auto 0.1 % (0-2); Eosinophils Percent Auto 0.3 % (0-4); Hematocrit 42.7 % (42.0-52.0); Hemoglobin 14.3 g/dl (14.0-18.0); Imm Gran Abs Auto 0.08 X10*3/uL (0.00-0.03); Imm Gran Pct Auto 0.5 % (0.0-0.4); Lymphocytes Absolute Auto 1.1 X10*3/uL (1.2-4.9); Lymphocytes Percent Auto 7.4 % (20-40); Mean Corpuscular HGB Conc 33.5 g/dl (31.0-36.0); Mean Corpuscular Hemoglobin 30.4 pg (27.0-33.0); Mean Corpuscular Volume 90.7 fL (80.0-98.0); Mean Platelet Volume 10.2 fL (9.4-12.4); Monocytes Percent Auto 6.5 % (2-11); Neutrophils Absolute Auto 12.6 x10*3/uL (2.0-8.3); Neutrophils Percent Auto 85.2 % (45-73); Platelet Count 231 X10*3/uL (160-400); Red Blood Count 4.71 X10*6/uL (4.60-5.80); Red Cell Distribution Width 13.3 % (11.0-16.0); White Blood Count 14.8 X10*3/uL (4.8-10.8)
[2024-05-25 10:35] LABS: Bacteria Urine None Seen (None Seen); Hyaline Casts Urine 0-2 /LPF (0-2); RBC Urine >20 /HPF (0-2); UACC Culture Trigger YES; WBC Urine 21-50 /HPF (0-5)
[2024-05-25 10:47] LABS: Alanine Aminotransferase 25 U/L (0-40); Albumin Level 3.6 g/dL (3.5-5.0); Alkaline Phosphatase 73 U/L (39-117); Anion Gap 12 (12-20); Aspartate Amino Transferase 39 U/L (5-37); Blood Urea Nitrogen 17 mg/dL (9-16); Carbon Dioxide 23 mmol/L (22-29); Chloride 109 mmol/L (96-108); Creatinine Clr Calc Pharmacy 63.1; Estimated Glomerular Filt Rate > 60; Glucose Random 117 mg/dL (60-115); Potassium 3.6 mmol/L (3.3-5.1); Sodium 140 mmol/L (135-145); Total Protein 7.7 g/dL (6.5-8.0)
[2024-05-25 10:52] LABS: Troponin-I High Sensitivity 6.5 ng/L (<3.5-35.0)
--- NOTE | 2024-05-25 11:00 | ED.MALEGU ---
HPI - Male Genitourinary General Chief complaint: Urogenital-Male Stated complaint: Diff Urinating Time Seen by Provider: 05/25/24 10:33 History of Present Illness HPI Narrative: patient is an 78-year-old male with a history of atrial fibrillation currently on Eliquis. Presented today with having incontinence at night. Patient during the daytime able to urinate fine. Denies any fever chills. There is no chest pain there is no diaphoresis. Patient is from home. There is no change in bowel movement. Baseline patient is mom metoprolol 25 mg b.i.d.. Related Data Previous Rx's ?Medication ?Instructions ?Recorded acetaminophen 325 mg tablet 975 mg (3 x 325 mg) PO TID #30 tabs 07/15/23 apixaban 5 mg tablet (Eliquis) 5 mg PO BID #120 tabs 07/15/23 lidocaine 4 % topical patch 1 patch transdermal DAILY #7 ea 07/15/23 (Lidocaine Pain Relief) metoprolol tartrate 25 mg tablet 25 mg PO BID #180 tabs 07/15/23 omeprazole 20 mg capsule,delayed 20 mg PO DAILY #60 caps 07/15/23 release cephalexin 500 mg capsule 500 mg PO Q8H 7 days #21 caps 05/25/24 Allergies Allergy/AdvReac Type Severity Reaction Status Date / Time No Known Allergies Allergy Verified 05/25/24 09:56 [facility] Social History Social History Household Members: Spouse Housing: House Do you presently have visiting nurse or other home services: Yes (VNA) Patient Tobacco Use Status: Never used Tobacco Advance Directives: No Advance Directives Information Provided: Yes service: No Physical Exam Vital Signs: Vital Signs: Last Vital Signs Temp 97.8 F 05/25/24 11:36 Pulse 102 H 05/25/24 11:36 Resp 12 05/25/24 11:36 BP 124/75 05/25/24 11:36 Pulse Ox 97 05/25/24 11:36 O2 Del Method Room Air 05/25/24 11:36 BMI result Body Mass Index 30.4 Medications Administered Discontinued Medications Generic Name Dose Route Start Last Admin Trade Name Freq PRN Reason Stop Dose Admin Ceftriaxone Sodium 1 gm 05/25/24 12:21 05/25/24 12:33 Ceftriaxone Sodium 1 Gm Vial IVPUSH 05/25/24 12:22 1 gm ONCE ONE Administration Lidocaine HCl 10 ml 05/25/24 11:05 05/25/24 11:40 Lidocaine Hcl 2 % Urojet 10 Ml Jel.Pf.Shavon TOPICAL 05/25/24 11:06 10 ml ONCE ONE Administration Lidocaine HCl 10 ml 05/25/24 11:05 05/25/24 11:40 Lidocaine Hcl 2 % Urojet 10 Ml Jel.Pf.Shavon TOPICAL 05/25/24 11:06 10 ml ONCE ONE Administration Metoprolol Tartrate 25 mg 05/25/24 11:03 05/25/24 11:47 Metoprolol Tartrate 25 Mg Tablet PO 05/25/24 11:04 Not Given ONCE ONE Protocol Medical Decision Making Medical Decision Making [facility] Narrative: Patient's bladder scan in the emergency department was over 600 cc postvoid. Likely the cause of patient having small urination each time. Patient's heart rates elevated question secondary to the urinary retention versus the atrial fibrillation baseline. Will compromise by giving 1 small dose of metoprolol and also put in a Menon and monitor patient's heart rate carefully. A Menon to be placed for the urinary retention. patient's Menon was placed. There was no complication. Urine came back grossly infected. Antibiotics 1st dose of Rocephin was given will give a prescription for Keflex. Currently in stable condition. Will discharge home. Explained to patient need to follow-up with urology on an outpatient basis for the indwelling Menon catheter. Differential Diagnosis Differential Diagnoses: The differential diagnosis associated with the presentation includes Urinary retention, urinary tract infection. AFib uncontrolled. Admission/Observation Consideration of admission/observation: Escalation of care including admission/observation considered Lab Data [facility] Lab Attestation statement: I reviewed the patient's lab results. 05/25/24 10:19 05/25/24 10:19 Labs: Lab Results 05/25/24 05/25/24 Range/Units 10:17 10:19 WBC 14.8 H (4.8-10.8) X10*3/uL RBC 4.71 (4.60-5.80) X10*6/uL Hgb 14.3 (14.0-18.0) g/dl Hct 42.7 (42.0-52.0) % MCV 90.7 (80.0-98.0) fL MCH 30.4 (27.0-33.0) pg MCHC 33.5 (31.0-36.0) g/dl RDW 13.3 (11.0-16.0) % Plt Count 231 (160-400) X10*3/uL MPV 10.2 (9.4-12.4) fL Immature Gran % (Auto) 0.5 H (0.0-0.4) % Neut % (Auto) 85.2 H (45-73) % Lymph % (Auto) 7.4 L (20-40) % [place] % (Auto) 6.5 (2-11) % Eos % (Auto) 0.3 (0-4) % Baso % (Auto) 0.1 (0-2) % Lymph # (Auto) 1.1 L (1.2-4.9) X10*3/uL [place] # (Auto) 1.0 (0.1-1.2) X10*3/uL Eos # (Auto) 0.0 (0.0-0.4) X10*3/uL Baso # (Auto) 0.0 (0.0-0.2) X10*3/uL Abs Immat Gran (auto) 0.08 H (0.00-0.03) X10*3/uL Absolute Neuts (auto) 12.6 H (2.0-8.3) x10*3/uL Absolute Nucleated RBC 0.000 (0.0-0.012) X10*3/uL Nucleated RBC % (auto) 0.0 (0.0-0.2) /100WBC Sodium 140 (135-145) mmol/L Potassium 3.6 (3.3-5.1) mmol/L Chloride 109 H (96-108) mmol/L Carbon Dioxide 23 (22-29) mmol/L Anion Gap 12 (12-20) BUN 17 H (9-16) mg/dL Creatinine 1.15 (0.5-1.4) mg/dL Estim Creat Clear Calc 63.1 Estimated GFR > 60 Random Glucose 117 H (60-115) mg/dL Calcium 9.0 (8.4-10.2) mg/dL Total Bilirubin 1.0 (0.0-1.0) mg/dL AST 39 H (5-37) U/L ALT 25 (0-40) U/L Alkaline Phosphatase 73 (39-117) U/L Troponin I High Sens 6.5 D (<3.5-35.0) ng/L Total Protein 7.7 (6.5-8.0) g/dL Albumin 3.6 (3.5-5.0) g/dL Urine Color Yellow Urine Appearance Cloudy Urine pH 5.5 (5.0-9.0) Ur Specific [place] 1.015 (1.005-1.025) Urine Protein Negative (Neg-Trace) mg/dL Urine Glucose (UA) Negative (Negative) mg/dL Urine Ketones Negative (Negative) mg/dL Urine Blood Large (3+) H (Negative) Urine Nitrite Negative (Negative) Ur Leukocyte Esterase Large (3+) H (Negative) Urine RBC >20 H (0-2) /HPF Urine WBC 21-50 H (0-5) /HPF Ur Squamous Epith Cells 6-10 (0-2) /HPF Urine Bacteria None Seen (None Seen) Hyaline Casts 0-2 (0-2) /LPF Chronic Conditions History of atrial fibrillation on Eliquis Social Determinants Patient?s care significantly limited by Social Determinants of Health including: Problems related to primary support group Discharge Plan Discharge Clinical Impression: Acute urinary retention, Urinary tract infection Patient Disposition: Home, Self-Care Instructions: Urinary Tract Infection in Men (DC), Menon Catheter Placement and Care (ED) Prescriptions: New cephalexin 500 mg capsule 500 mg PO Q8H 7 Days Qty: 21 0RF No Action omeprazole 20 mg Capsule,Delayed Release(Dr/Ec) 20 mg PO DAILY Qty: 60 0RF metoprolol tartrate 25 mg Tablet 25 mg PO BID Qty: 180 0RF Protocol: Hold for SBP/HR < HOLD for SBP < : 90 HOLD for HR < : 60 Eliquis 5 mg Tablet 5 mg PO BID Qty: 120 0RF acetaminophen 325 mg Tablet 975 mg PO TID Qty: 30 0RF lidocaine [Lidocaine Pain Relief] 4 % Adhesive Patch,Medicated 1 patch transdermal DAILY Qty: 7 0RF Protocol: Apply to: Apply to: affected area Referrals: Bharati Zambrano MD [Physician] - 05/27/24 Print Language: Azeri
[2024-05-25 11:24] VITALS: BP 99/57; PULSE 97; RESP 20; O2SAT 97
[2024-05-25 11:36] VITALS: BP 124/75; PULSE 102; RESP 12; TEMP 36.6; O2SAT 97
[2024-05-25] MEDS: Lidocaine HCl 2 % Urojet 10 ML JEL.PF.APP TOPICAL ×2 (11:40)
--- NOTE | 2024-05-25 11:42 | PC.NURSE ---
patient presented to the ED with new episodes of nocturia. patient bladder scanned by java tech lead, volume over 800ml. ED provider placed 18 fr galindo cath, patient had 800cc urine output dark yellow, minimal bleeding from insertion. patient now less tachycardic rate 90s-100s
--- OUTSIDE RECORDS SUMMARY | 2024-05-25 12:21 | XMS_ITS | Data Portability ---
Author Organization [facility], , [facility] Address [address] [place] [address] Care Team Providers Care Sales Research Analyst Name Role Phone MARIA ANTONIADEANGELO MEDRANO Blast Setter FARIBA ARRIAZA Nutrition Services Aide [facility] Nutrition Services Aide [phone] BENITA RANDHAWA Primary Care Provider [phone] Assessment No assessment recorded. Plan of Treatment Reminders Order Date Submit Date Provider Last Modified By Organization Details Last Modified Time Details Appointments [facility]k 2024 10:20A M FP TREATMENT NURSE [facility] Not available Not available Not available Follow Up, 2024 10:00A M DAYDAY JAMESON Not available Not available Not available Lab INR, blood 2024 025 [facility], [address] [place] [address], [id number], 05/06/2024 09:59:49 INR, blood 2024 025 [facility], [address] [place] [address], [id number], 04/22/2024 11:22:19 INR, [facility], [address] [place] [address], [id number], 04/15/2024 09:29:00 INR, blood 2024 025 [facility], [address] [place] [address], [id number], 04/08/2024 09:44:13 INR, blood 2024 025 aydeu [facility], [address] [place] [address], [id number], 04/01/2024 09:19:59 Referral None recorded . Procedures None recorded . Surgeries None recorded . Imaging None recorded . Medication Orders None recorded . Patient TargetsNo targets recorded. Patient InstructionsNo instructions recorded. Reason for Referral None Reported. Results Created Date Observation Date Name Description Value Unit Range Abnormal Flag Note LastModifiedBy Organization Detail LastModifiedTime 03/01/20 24 03/01/2024 POC INR INR POC 1.5 INR 0.9 - 1.1 high Not Available [facility] [address] [place], [address], 03/01/2024 12:20:10 03/08/20 24 03/08/2024 POC INR INR POC 2.4 INR 0.9 - 1.1 high Not Available [facility] [address] [place], [address], 03/08/2024 11:25:05 03/15/20 24 03/15/2024 POC INR INR POC 1.4 INR 0.9 - 1.1 high Not Available [facility] [address] [place], [address], 03/15/2024 08:54:08 03/25/19 25 03/25/2024 POC INR INR POC 1.3 INR 0.9 - 1.1 high Not Available [facility] [address] [place], [address], 03/25/2024 08:41:16 04/01/19 25 04/01/2024 POC INR INR POC 1.5 INR 0.9 - 1.1 high Not Available [facility] [address] [place], [address], 04/01/2024 09:10:08 04/08/19 25 04/08/2024 POC INR INR POC 1.5 INR 0.9 - 1.1 high Not Available [facility] [address] [place], [address], 04/08/2024 09:44:13 04/15/19 25 04/15/2024 POC INR INR POC 2.0 INR 0.9 - 1.1 high Not Available [facility] [address] [place], [address], 04/15/2024 09:13:02 04/22/19 25 04/22/2024 POC INR INR POC 2.5 INR 0.9 - 1.1 high Not Available [facility] [address] [place], [address], 04/22/2024 11:22:18 05/06/19 25 05/06/2024 POC INR INR POC 2.6 INR 0.9 - 1.1 high Not Available [facility] [address] [place], [address], 05/06/2024 08:45:03 03/01/20 24 03/01/2024 XR, knee, weigh tbear ing CLINIC AL HISTOR Y: Right knee pain. TECHNI QUE: AP, obliqu e and latera l views of the right knee obtain ed. COMPAR VERONICA: None. FINDIN GS: There is no acute fractu re or sublux ation. The patien t is status post right total knee arthro plasty . The prosth eses are well aligne d withou t eviden ce of loosen ing.. The joint spaces are mainta ined. Athero sclero sis noted. IMPRES FRANKLIN: Status post right total knee arthro plasty with anatom ic alignm ent and positi on and no eviden ce of loosen ing.. Readin g Physic olga: Gil dillon [facility] (Imaging) [address], [place], [address], 03/08/2024 13:49:35 03/02/20 24 03/02/2024 US, retro perit oneum CLINIC AL HISTOR Y: Elevat ed PSA TECHNI QUE: 2D sonogr aphy of the bladde r. COMPAR VERONICA: None. FINDIN GS: Ureter al jets are visual ized bilate rally. The bladde r is normal in appear ance. Prevoi d bladde r volume : 264.4 mL Postvo id bladde r volume : 74.1 mL The prosta te is enlarg ed with a volume of 45.6 cc IMPRES FRANKLIN: Bladde r is unrema rkable . Prosta tomega ly. Readin g Physic olga: Gil Pfeiffer [id number] (Imaging) [address] , [place], [address], 03/15/2024 09:40:05 Result Notes None recorded. 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 SAMANTHA Springer, [facility] 1 10:53:12 Lumbago with sciatica 198914484 Active 2020 Laine verma PA-C [address] [place] [address], [address] , [facility] 08:42:48 Obesity 534092330 Active 2020 BMI = 37 after wt loss past 2 yrs. Previous morbid obesity. sylvia Camp RD, LDN [address] [place] [address], [address] , [facility] 1 09:12:16 Intermit tent claudica tion 30840772 Active 2022 Laine verma PA-C [address] [place] [address], [address] , [facility] 3 18:37:28 Paroxysm al atrial fibrilla tion 475202736 Active 2023 Laine verma PA-C [address] [place] [address], , [facility] 4 16:03:57 Long-ter m current use of anticoag ulant 450210196 Active 2023 Laine verma PA-C [address] [place] [address], , [facility] 4 16:23:31 Mixed hyperlip idemia 411729953 Active 2003 Tyler Enriquez MD [address] [place] [address], [address] , [facility] 6 09:02:32 Headache 77903327 Completed 200603/05/2011 Tyler Enriquez MD [address] [place] [address], [address] , [facility] 6 14:23:02 Cough 34826024 Completed 200703/05/2011 Tyler Enriquez MD [address] [place] [address], [address] , [facility] 6 14:23:02 Osteoart hritis of knee 794233382 Completed 200312/18/2013 Tyler Enriquez MD [address] [place] [address], [address] , [facility] 6 14:23:01 Actinic keratosi s 670020885 Completed 200303/05/2011 Tyler Enriquez MD [address] [place] [address], [address] , [facility] 6 14:23:01 Pure hypercho lesterol emia 802603387 Completed 200303/05/2011 Tyler Enriquez MD [address] [place] [address], [address] , [facility] 6 14:23:01 Urticari a 863825551 Completed 03/05/2011 Tyler Enriquez MD [address] [place] [address], , [facility] 6 14:23:01 Localize d, primary osteoart hritis 932160673 Completed 200312/18/2013 Tyler Enriquez MD [address] [place] [address], , [facility] 6 14:23:01 Breathin g painful 93935648 Completed 200003/05/2011 Tyler Enriquez MD [address] [place] [address], , [facility] 6 14:23:02 Pneumoni a 854868398 Completed 200703/05/2011 Tyler Enriquez MD [address] [place] [address], , [facility] 6 14:23:01 Knee pain Completed 200308/31/2012 Tyler Enriquez MD [address] [place] [address], , [facility] 6 14:23:02 Verruca vulgaris 16236263 Completed 200303/05/2011 Tyler Enriquez MD [address] [place] [address], , [facility] 6 14:23:01 Chest pain 52359497 Completed 200503/05/2011 Tyler Enriquez MD [address] [place] [address], , [facility] 6 14:23:02 Dysphagi a 64555576 Completed 200503/05/2011 Tyler Enriquez MD [address] [place] [address], [address] , [facility] 6 14:23:02 Hyperlip idemia 86797609 Completed 200203/05/2011 Tyler Enriquez MD [address] [place], [address] , [facility] 6 14:23:01 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 Procedures Surgical History Date Name Laterality Status Provider Name and Address Organization Details Recorded Time 09/08/19 24 [id number] completed Laine castelan PA-C [address] [place] [address], [phone], [facility] 09/08/2023 11:56:13 09/08/19 24 Coumadin Teaching completed Susy Jade LPN [facility] 09/08/2023 12:32:36 04/28/19 24 Medicare Wellness Visit cancelled Sowmya Teague MA [facility] 04/28/2023 10:40:16 10/22/19 23 Medicare Wellness Visit cancelled Rosana Bender MA [facility] 10/21/2022 08:46:56 10/17/19 22 Medicare Wellness Visit completed Rosana Bender MA [facility] 10/16/2021 08:17:13 10/17/19 22 Alcohol use screening completed Rosana Bender MA [facility] 10/16/2021 08:17:13 10/17/19 22 Cardiovascular disease risk reduction counseling completed Rosana Bender MA [facility] 10/16/2021 08:17:13 10/09/19 21 Medicare Wellness Visit completed Tatieana Kamron, [facility] 10/08/2020 08:38:47 10/09/19 21 prevention-cardiov ascular risk reduction counseling completed Joseph Lundy [facility] 10/08/2020 08:38:47 10/09/19 21 prevention-annual alcohol misuse screening completed Joseph Lundy [facility] 10/08/2020 08:38:47 08/22/19 21 73153: Therapeutic Exercise completed Santo Bueno, PT [address] [place], [address], [facility] 08/21/2020 11:57:35 08/22/19 21 Treatment and Advice completed Santo Bueno, PT [address] [place], [address], [facility] 08/21/2020 11:38:28 07/18/19 21 Physical Activity Counselling completed Santo Bueno, PT [address] [place], [address], [facility] 07/17/2020 12:34:42 07/18/19 21 27983: PT Eval Low Complexity completed Santo Bueno, PT [address] [place], [address], [facility] 07/17/2020 12:34:42 07/18/19 21 Treatment and Advice completed Santo Bueno, PT [address] [place], [address], [facility] 07/17/2020 13:01:03 09/14/19 19 Medicare Wellness Visit completed Jaz Payne [facility] 09/13/2018 08:53:02 01/28/20 17 Medicare Wellness Visit completed Malissa Tan [facility] 01/27/2017 14:42:42 03/16/19 17 extraction of cataract completed Laine castelan PA-C [address] [place], [address], [facility] 10/08/2020 09:54:47 06/28/19 16 Medicare Wellness Visit completed Jessica Riel, MA [facility] 06/28/2015 14:02:30 06/28/19 16 Seborrheic Keratosis completed Tyler Enriquez MD [address] [place], [address], [facility] 06/29/2015 09:00:32 03/22/19 15 <strong>Pain</stro ng> Assessment and Follow-up (G8730) completed Santo Bueno, PT [address] [place], [address], [facility] 03/22/2014 14:36:00 03/22/19 15 <strong>Falls</str jennie> Risk Assessment - No Risk (1101F) completed Santo Bueno, PT [address] [place], [address], [facility] 03/22/2014 14:36:00 03/22/19 15 <strong>Functional </strong> Outcome w/ POC (G8539) completed Santo Bueno, PT [address] [place], [address], [facility] 03/22/2014 14:36:00 03/22/19 15 <strong>BMI</stron g> Documented Outside Normal Parameters, no Follow-up Documented, Reason not Given (G8419) completed Santo Bueno, PT [address] [place], [address], [facility] 03/23/2014 20:32:01 03/22/19 15 Current <strong>Medication s</strong> Documented (G8427) completed Santo Bueno, PT [address] [place], [address], [facility] 03/22/2014 14:36:00 03/22/19 15 82725: PT Evaluation completed Santo Bueno, PT [address] [place], [address], [facility] 03/22/2014 14:36:00 03/22/19 15 Treatment and Advice completed Santo Bueno, PT [address] [place], [address], [facility] 03/22/2014 14:30:47 12/02/19 14 Medicare Wellness Visit completed Jessica Chery MA [facility] 12/01/2013 10:33:38 09/01/19 13 Medicare Wellness Visit completed Rebeca Sanchez MA [facility] 08/31/2012 09:17:14 03/05/20 11 Medicare Wellness Visit completed Catalino Tang MA [facility] 03/05/2011 15:21:21 total knee replacement completed Laine castelan PA-C [address] [place] [address], [address], [facility] 10/08/2020 09:29:32 Imaging Results Imaging Date Name Status LastModified by Organization Details LastModified Time 03/01/2024 XR, knee, weightbearing completed [facility] (Imaging) [address], [place], [address], 03/08/2024 13:49:35 03/02/2024 US, retroperitoneum completed [address] (Imaging) [address] [place], [address], 03/15/2024 09:40:05 Procedure Notes None recorded. Medical Equipment None Reported. Allergies Allergen ID Allergen Name Allergen Category Reaction Reaction Severity Criticality Documentation Date Start Date Code Code System Note Provider Name and Address Organization Details Recorded Time 882790 atorvasta tin medicatio n myalgias (muscle pain) moderate low 11/13/20212019 03715 RxNorm Laine bonilla PA-C [address] [place] [address] [place], [address], [facility] 09:26:52 Medications Name Sig Start Date Stop Date Status Note LastModified by Organization Details LastModified Time pravastat in tab 40mg active Not Available Not Available Not Available tizanidin e 2 mg tablet Take 1 tablet every 6 hours by oral route as needed. 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 10/08 completed Not Available Not Available Not Available warfarin 2.5 mg tablet TAKE 1 TABLET BY MOUTH EVERY DAY active Not Available Not Available No t Available sulfameth oxazole 800 mg-trimet hoprim 160 mg tablet 09/07 completed Not Available Not Available Not Available omeprazol e 40 mg capsule,d elayed release TK 1 C PO QD 07/16 completed Not Available Not Available Not Available aspirin 81 mg tablet,de layed release Take 1 tablet every day by oral route. 11/13 completed not taking 10/16/21 am Not Available Not Available Not Available simvastat in 40 mg tablet Take 1 tablet every day by oral route for 90 days. 05/24 completed Not Available Not Available Not Available warfarin 3 mg tablet TAKE 1 TABLET DAILY ACCORDIN G TO COUMADIN SCHEDULE active Not Available Not Available No t Available Celebrex 200 mg capsule Take 1 capsule twice a day by oral route for 90 days. 10/23 completed mail to pt Not Available Not Available Not Available oxycodone -acetamin ophen 5 mg-325 mg tablet 09/07 completed Not Available Not Available Not Available pravastat in 80 mg tablet TAKE 1 TABLET BY MOUTH EVERY DAY 01/27 completed Not Available Not Available Not Available metoclopr amide 5 mg tablet TK 1 T PO QID FOR 2 DAYS 07/16 completed Not Available Not Available Not Available cephalexi n 500 mg capsule 09/07 completed Not Available Not Available Not Available warfarin 5 mg tablet TAKE 1 TABLET BY MOUTH EVERY DAY active Not Available Not Available No t Available pravastat in 20 mg tablet TAKE 1 TABLET BY MOUTH EVERY DAY 09/04 completed Not taking at this time 09/04/22 JF Not Available Not Available Not Available oxycodone 5 mg tablet 2006 active Take 1.00 tabs every 4 hours as needed Not Available Not Available Not Available metoprolo l tartrate 25 mg tablet TAKE 1 TABLET BY MOUTH TWICE A DAY active Not Available Not Available No t Available Vitamin D3 active 500mg daily Not Available Not Available Not Available multivita min 01/27 completed 1 tab daily Not Available Not Available Not Available GaviLyte- G 236 gram-22.7 4 gram-6.74 gram-5.86 gram oral solution MIX AND DRINK UTD active Not Available Not Available No t Available Xarelto 20 mg tablet Take 1 tablet every day by oral route at dinner for 30 days. 03/23 completed Not Available Not Available Not Available Vitamin B12 1000 mcg daily orally 04/15 completed Not Available Not Available Not Available cyanocoba brian (vitamin B-12) 1,000 mcg capsule Take 1 capsule every day by oral route. 09/04 completed not taking 10/16/21 am Not Available Not Available Not Available Fluad Quad (65yr up)(PF) 60 mcg (15 mcg x 4)/0.5mL IM syringe PHARMACY ADMINIST ERED 07/16 completed Not Available Not Available Not Available Vitals Date Recorded Body height Heart rate Systolic blood pressure Diastolic blood pressure Provider Name and Address Organization Details Last Updated DateTime 04/22/2024 180.34 cm 76 /min 118 mm[Hg] 80 mm[Hg] Marianela Valle LPN [facility] 04/22/2024 11:34:47 Social History Question Answer Notes LastModified by Organizat ion Details LastModified Time Tobacco Smoking Status Never Smoker Not Available [facility] 01/30/2011 04:53:49 Do You Have An Advance Directive? Yes Information not available 07/28/2011 What Is Your Level Of Alcohol Consumption? Moderate 2x Week Few Beers [email or web address] Information not available 09/07/2017 Do You Wear A Helmet When Biking? Yes Information not available 10/16/2021 What Is Your Level Of Caffeine Consumption? Occasional 1 Cup / Day Information not available 10/16/2021 How Much Tobacco Do You Chew? None Information not available 07/28/2011 What Type Of Diet Are You Following? REGULAR Information not available 07/28/2011 Which Illicit Or Recreational Drugs Have You Used? None [email or web address] Information not available 05/25/2018 Do You Or Have You Ever Used E-cigarettes Or Vape? 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 Yes Information not available 10/16/2021 How Many Days In The Past Year Have You Had A Heavy Drinking Consumption (4+ Female, 5+ Male)? 0 [email or web address] Information not available 09/13/2018 Are There Any Guns Present In Your Home? No Information not available 07/28/2011 Do You Use Insect Repellent Routinely? Yes [email or web address] Information not available 10/08/2020 Live Alone Or With Others? With Others Information not available 07/28/2011 CSRP - Narcotics No Informat ion not available 07/28/2011 CSRP Contract Signed And Discussed No Information not available 07/28/2011 Patient Has Health Care Proxy Signed And In Chart No Jennifer([facility])[phone] Information not available 11/26/2017 CSRP - Stimulants No Information not available 03/20/2014 CSRP - Suboxone No Informati on not available 06/28/2015 CCM Consent Discussion 10/16/2021 [email or web address] Information not available 10/29/2021 Marital Status Information not available 01/30/2011 Mosquito Repellent Used Routinely Yes Information not available 03/05/2011 What Was The Date Of Your Most Recent Tobacco Screening? 03/01/2024 [email or web address] Information not available 03/01/2024 How Many Children Do You Have? 2 Information not available 07/28/2011 What Is Your Relationship Status? Information not available 10/08/2020 Do You Use Your Seat Belt Or Car Seat Routinely? Yes Information not available 10/16/2021 Seat Belts Used Routinely Yes Information not available 01/30/2011 Smoke Alarm In Home Yes 17 Information not available 01/30/2011 Do You Have Smoke And Carbon Monoxide Detectors In Your Home? Yes [email or web address] Information not available 10/08/2020 Are You Passively Exposed To Smoke? No [email or web address] Information not available 10/08/2020 Do You Or Have You Ever Used Smokeless Tobacco? Never Used Smokeless Tobacco [email or web address] Information not available 04/15/2019 How Much Tobacco Do You Smoke? No Information not available 06/28/2015 General Stress Level Medium Information not available 07/28/2011 Do You Use Any Illicit Or Recreational Drugs? No [email or web address] Information not available 10/08/2020 Do You Use Sunscreen Routinely? Yes Information not available 03/05/2011 Do You Or Have You Ever Used Any Other Forms Of Tobacco Or Nicotine? No [email or web address] Information not available 09/04/2022 Sex: Unknown Functional Status Question Answer Note LastModified by Organization D etails LastModified Time What is your exercise level? None Information not available 10/16/2021 Mental Status None recorded. Family History Nothing Reported Notes:No cancer, DM, CAD, ht n. Sister: 'old age' 80+ Medical History Condition Response Osteoarthritis Y Hyperlipidemia Y Chronic Back Pain Y Immunizations Vaccine Type Date Status Note Provider Nam e and Address Organization Details Recorded Time Influenza, split virus, trivalent, preservative 1 completed Not Available [facility] 04/02/2019 02:18:11 Influenza, split virus, trivalent, preservative 9 completed Not Available [facility] 04/02/2019 02:29:23 Tdap 7 completed Not Available [facility] 01/29/2011 05:21:55 Influenza, split virus, trivalent, preservative 2 completed Not Available [facility] 04/02/2019 02:18:34 Influenza, split virus, trivalent, PF 3 completed Not Available [facility] 04/02/2019 02:26:35 Influenza, high-dose, trivalent, PF 4 completed Not Available [facility] 04/02/2019 02:19:19 Influenza, high-dose, trivalent, PF 5 completed Not Available [facility] 04/02/2019 02:29:57 Td (adult), 2 Lf tetanus toxoid, preservative free, adsorbed 6 completed Not Available [facility] 04/02/2019 02:20:36 Pneumococcal conjugate PCV 13 6 completed Not Available [facility] 04/02/2019 02:39:42 Influenza, high-dose, trivalent, PF 6 completed Not Available [facility] 04/02/2019 02:21:05 Influenza, high-dose, trivalent, PF 7 completed Not Available [facility] 04/02/2019 02:22:02 Influenza, high-dose, trivalent, PF 9 completed Not Available [facility] 04/02/2019 02:34:18 pneumococcal polysaccharide PPV23 0 completed Not Available [facility] 04/02/2019 02:34:19 Influenza, high-dose, trivalent, PF 9 completed Not Available [facility] 04/02/2019 02:24:36 COVID-19, mRNA, LNP-S, PF, 100 mcg/0.5mL dose or 50 mcg/0.25mL dose 1 completed Marianela Valle LPN null, [facility] 04/21/2020 10:49:38 COVID-19, mRNA, LNP-S, PF, 100 mcg/0.5mL dose or 50 mcg/0.25mL dose 1 completed [facility] 11:00:30 Influenza, high-dose, quadrivalent, PF 1 completed Rosana Bender MA null, [facility] 12/12/2020 14:50:45 Influenza, high-dose, quadrivalent, PF 2 completed Kourtney Gonzalez LPN null, [facility] 01/17/2022 11:53:53 COVID-19, mRNA, LNP-S, PF, 100 mcg/0.5mL dose or 50 mcg/0.25mL dose 2 [facility] 04/04/[facility]21 14:18:45 influenza, unspecified formulation 0 completed Not Available [facility] 01/29/2011 05:20:34 Past Encounters Encounter ID Performer Location Encounter Start Date Encounter Closed Date Diagnosis/Indication Diagnosis SNOMED-CT Code Diagnosis ICD10 Code Diagnosis Note [id number] Physical Therapy, [facility] [address] [facility] [address] 01/21/2000 12:00:00 04/05/2008 02:02:29 [id number] ABDULAZIZ [facility], OFFICE [address] [place] [address] 02/27/2000 15:05:00 04/05/2008 02:02:29 [id number] [facility], OFFICE [address] [place] [address] 07/14/2000 10:45:00 04/05/2008 02:02:29 [id number] LAB - [facility] [address] [facility] [place] [address] 08/30/2001 10:21:58 04/05/2008 02:02:29 [id number] ABDULAZIZ [facility], [address]ICE [address] [place] [address] 03/31/2002 09:50:47 04/05/2008 02:02:29 [id number] LAB - [address] [address] 03/31/2002 10:52:19 04/05/2008 02:02:29 [id number] LAB - [address] [address] 04/11/2002 10:26:12 04/05/2008 02:02:29 [id number] LAB - [address] [address] 04/11/2002 16:52:35 04/05/2008 02:02:29 [id number] ABDULAZIZ [facility], [address]ICE [address] [place] [address] 04/17/2003 13:18:23 04/18/2003 08:07:13 [id number] LAB - [facility] [address] [place] [address] 05/03/2003 07:45:50 05/03/2003 07:46:02 [id number] ABDULAZIZ [facility], OFFICE [address] [place] [address] 05/18/2003 10:21:30 05/18/2003 17:16:53 [id number] LAB - [facility] [address] [place] [address] 06/01/2003 07:35:06 06/01/2003 09:23:00 [id number] [facility], OFFICE [address] [place] [address] 08/23/2003 14:45:36 08/24/2003 11:18:14 [id number] LAB - [facility] [place] [address] 10/05/2003 07:41:44 10/05/2003 11:05:38 [id number] LAB - [facility] FOX [id number] 6 01/04/2004 08:05:29 01/04/2004 08:05:33 [id number] [facility], OFFICE [address] [place] [address] 01/19/2004 15:45:52 01/20/2004 10:47:55 [id number] [facility], OFFICE [address] [place] [address] 03/27/2004 11:11:01 03/28/2004 08:51:20 [id number] LAB - [facility] [place] [address] 03/27/2004 12:02:21 03/27/2004 12:02:37 [id number] [facility], OFFICE [address] [place] [address] 07/04/2004 08:34:38 07/04/2004 09:42:37 [id number] LAB - [facility] [place] [address] 09/25/2004 08:16:46 09/25/2004 08:16:51 [id number] [facility], OFFICE [address] [place] [address] 02/25/2005 08:14:30 04/05/2008 02:02:29 [id number] LAB - [facility] [place] [address] 03/31/2005 08:58:25 03/31/2005 08:58:51 [id number] [facility], OFFICE [address] [place] [address] 06/11/2005 16:02:27 04/05/2008 02:02:29 [id number] [facility], OFFICE [address] [place] [address] 11/24/2005 11:53:53 04/05/2008 02:02:29 [id number] Radiology , [facility] [address] [place] [address] 11/24/2005 12:28:01 04/05/2008 02:02:29 [id number] LAB - [facility] 70 [place]osa[place] 6 03/17/2006 07:57:48 03/17/2006 07:57:54 [id number] , [facility], OFFICE [address] [place] CASH62[address] 6 04/16/2006 10:46:07 04/17/2006 08:24:07 [id number] , [facility], OFFICE [address] [place] CASH62[address] 6 10/02/2006 13:42:46 10/05/2006 08:33:57 [id number] , [facility], OFFICE [address] [place] [id number] 6 02/08/2007 14:23:15 04/05/2008 02:02:29 [id number] LAB - [facility] FOX James62[address] 6 02/18/2007 09:35:43 02/18/2007 09:35:48 [id number] [facility], OFFICE [address] [place] [address] 06/15/2007 08:48:22 04/05/2008 02:02:29 [id number] Radiology , [facility] 70 [place] 6 06/15/2007 10:24:30 06/16/2007 09:35:30 [id number] Radiology , [facility] [address] [place] [address] 06/15/2007 00:00:00 04/05/2008 02:02:29 [id number] LAB - [facility] [address] [place] [address] 01/25/2008 08:47:36 01/25/2008 08:47:45 [id number] [facility], OFFICE [address] [place] [address] 08/02/2008 07:52:52 08/17/2008 11:35:48 [id number] , [facility], OFFICE [address] [place] [address] 12/15/2008 16:27:47 12/18/2008 11:25:06 [id number] LAB - [facility] [address] [place] [address] 08/02/2008 09:10:43 08/02/2008 09:10:51 [id number] [facility], OFFICE [address] [place] [address] 10/30/2009 08:02:17 11/01/2009 12:20:23 [id number] [facility], OFFICE [address] [place] [address] 11/20/2010 07:14:13 11/20/2010 09:03:41 [id number] [facility], OFFICE [address] [place] [address] 03/05/2011 14:45:50 03/05/2011 16:06:36 [id number] [facility], OFFICE [address] [place] [address] 07/28/2011 08:31:25 07/29/2011 14:53:57 [id number] [facility], OFFICE [address] [place] [address] 11/19/2011 06:27:00 11/19/2011 08:57:52 [id number] FOX Albarado [facility], OFFICE [address] [place] [address] 04/21/2012 09:14:44 04/21/2012 10:15:01 [id number] FOX Albarado, [facility], OFFICE [address] [place] [address] 08/31/2012 09:07:06 08/31/2012 11:22:00 [id number] [facility], OFFICE [address] [place] [address] 12/01/2012 06:20:26 12/01/2012 16:00:57 Influenza vaccine needed 8010580716 [id number] Laine CINTRON [facility], OFFICE [address] [place] [address] 04/14/2013 09:00:27 04/14/2013 09:46:35 Chest wall pain 133182691 Morbid obesity 869862923 Actinic keratosis 056010735 [id number] FOX Donald, [facility], [address] [place] [address] 12/01/2013 07:45:53 12/01/2013 11:05:29 Adult health examination 899832704 see Risk Assessment and Lifestyle Change Counseling section above Counseling [id number] Mixed hyperlipidemia 691350888 Negro calderon is at goal Continue to work on diet and exercise as discussed Degenerati ve joint disease involving multiple joints 881273186 Morbid obesity 036643904 Fatigue 90763878 [id number] Luda Reddy MA , [facility], [address] [place] [address] 01/11/2014 06:16:13 01/11/2014 10:51:44 Influenza vaccine needed 6164394362 [id number] , [facility], [address] [place] [address] 03/20/2014 09:12:16 03/22/2014 15:47:29 Degenerative joint disease involving multiple joints 483114740 [id number] Physical Therapy, [facility] [address] [place] [address] 03/22/2014 13:31:17 03/24/2014 07:33:36 Hip pain 15301414 [id number] Bridgett Seo LPN , [facility], [address] [place] [address] 12/19/2014 08:55:01 12/19/2014 11:56:45 Influenza vaccine needed 6001528439 106 Z28.3 [id number] Delphine Ivey , [facility], [address] [place] [address] 06/28/2015 13:43:23 07/02/2015 09:50:54 Mixed hyperlipidemia 423188520 E78.2 Adult heal th examination 653945568 Z00.00 see Risk Assessment and Lifestyle Change Counseling section above Counseling 645319389 Z71 .9 Active or passive immunization 493772493 Z23 Degenerati ve joint disease involving multiple joints 091453359 M15.9 Morbid obesity 765807474 E66.01 Low back pain 944487680 M54.5 [id number] Tyler Enriquez MD , [facility], [address] [place] [address] 01/10/2016 10:51:33 01/11/2016 14:11:25 Active or passive immunization 471072995 Z23 Mixed hyperlipidemia 267 843087 E78.2 Chest pain 96735939 R07. 9 [id number] Tyler Enriquez MD , [facility], [address] [place] [address] 02/15/2016 09:24:09 02/15/2016 10:08:43 Mixed hyperlipidemia 034553195 E78.2 [id number] Janis Bazan MA , [facility], [address] [place] [address] 12/05/2016 06:48:51 12/08/2016 12:07:05 Active or passive immunization 165562418 Z23 [id number] Tyler Enriquez MD , [facility], [address] [place] [address] 01/27/2017 14:35:24 01/27/2017 15:38:09 Adult health examination 885345443 Z00.00 see Risk Assessment and Lifestyle Change Counseling section above Counseling 461139029 Z71 .9 Degenerati ve joint disease involving multiple joints 239914071 M15.9 Mixed hyperlipidemia 267 597144 E78.2 Low back pain 830838095 M54.5 [id number] Tyler Enriquez MD , [facility], [address] [place] [address] 09/07/2017 09:18:53 09/07/2017 09:48:31 Bilateral cataracts 17801501 H26.9 Preoperati ve cardiovascular examination 853757357 Z01.241 [id number] Tyler Enriquez MD , [facility], [address] [place] [address] 05/25/2018 14:43:56 05/27/2018 11:34:19 Backache 333416706 M54.9 Active or passive immunization 477135845 Z23 Low back pain 557912613 M54.5 [id number] Lucia Foster NP , [facility], [address] [place] [address] 08/06/2018 15:02:35 08/10/2018 10:49:13 Low back pain 274959946 M54.5 Will call patient with radiology report - meanwhile back precaution s. [facility] [id number] Tyler Enriquez MD , [facility], [address] [place] [address] 09/13/2018 08:50:24 09/13/2018 09:33:41 Adult health examination 474809144 Z00.00 see Risk Assessment and Lifestyle Change Counseling section above Counseling 494408410 Z71 .9 Depression screening 171 660655 Z13.89 depression screening tool administer ed, entered into emr Degenerati ve joint disease involving multiple joints 341177713 M15.9 Mixed hyperlipidemia 267 902411 E78.2 Actinic keratosis 063914 007 L57.0 Intermitte nt claudication 96668827 I73.9 Neuropathy 030307684 G62 .9 [id number] Susy Jade LPN , [facility], [address] [place] [address] 12/07/2018 14:48:59 12/07/2018 15:23:30 Active or passive immunization 731113886 Z23 [id number] Hadley Peck MD , [facility], [address] [place] [address] 04/15/2019 17:19:25 04/19/2019 10:30:04 Hiccough present 447488362 R06.6 Has been having hiccoughs for 3 days on and off - keeping him up all night. Reviewed treatment options in Up To Date. Will start omeprazole as below. If that is not effective, pt to take the metoclopra mide as well for the next 1-2 days. If sx not improving or worsening and he is unable to get any sleep, enc go to ER. Pt and comf with this plan [id number] Gloria Grimes DO , [facility], [address] [place] [address] 07/16/2020 12:22:43 07/17/2020 16:32:52 Backache 174441384 M54.9 Advised to take 600mg every 6 hours to help with inflammati on and pain, advised to use heat for 15min every 2 hours to help relax the muscles. Referred to PT. Call with new/worsen ing symptoms or if no improvemen t. Pt agrees with plan. Right side sciatica 3202 041000 36478 M54.31 Advised to take 600mg every 6 hours to help with inflammati on and pain, advised to use heat for 15min every 2 hours to help relax the muscles, and soak in 2 cups epsom salt bath 1x daily for 20min to help with muscle relaxation . Call with new/worsen ing symptoms or if no improvemen t. Pt agrees with plan. [id number] Santo Bueno , PT Physical Therapy, [address] [address] 07/17/2020 12:11:21 07/19/2020 13:34:34 Low back pain 876049264 M54.5 74 year old {{male* fe male}} with signs and symptoms consistent with {{acute ch ronic recu rrent acut e on chronic#}} low back and hip pain with {{mobility deficits.* movement co-ordinat ion impairment . referred lower extremity pain. radi ating pain. rela jewel cognitive or affective tendencies . related generalize d pain.}} Patient has significan t functional limitation in their {{activiti es of daily living act ivities of daily living and work capacity a ctivities of daily living and exercise capacity a ctivities of daily living and recreation *}}. Skilled physical therapy is needed to safely and progressiv josemanuel address impairment s and functional limitation s as outlined below. Patient Goals: Able to sleep through the night, bend, lift, carry and walk for ADLs and work around his camper without limitation s due to back or anterior thigh pain. Clinical Goals: 1. Demonstrat e pain free trunk range of motion. 2. Demonstrat es sufficient trunk muscular stability to meet functional demands. Treatment Plan: Patient to return for {{4 6 8* 1 0}} visits over {{4 8 12*} } weeks. We expect significan t change in pain, impairment and function in this time frame. Treatment to Include: therapeuti c exercise and manual therapy [id number] Santo Bueno , PT Physical Therapy, [address] [address] 08/21/2020 11:03:54 08/21/2020 17:24:08 Low back pain 339517852 M54.5 Patient Goals: Able to sleep through the night, bend, lift, carry and walk for ADLs and work around his camper without limitation s due to back or anterior thigh pain.(10/2020) his goals have been met. Clinical Goals: 1. Demonstrat e pain free trunk range of motion. 2. Demonstrat es sufficient trunk muscular stability to meet functional demands.(0 08/21/2020) his goals have been met. [id number] Laine verma PA-C , [facility], [address] [place] [address] 10/08/2020 08:49:30 10/08/2020 10:25:40 Adult health examination 380476233 Z00.00 Encouraged routine exercise & well rounded dietSees Dentist/Op tometrist routinely- colonoscop y UTD-is considerin g Shingrix, other vaccines are UTD-10 yr ASCVD risk- 26%, recommende d starting statin and baby ASA-Encour aged completion of ACP/HCP/MO LST Forms/ discuss w. family Counseling 090736724 Z71 .9 including cardiovasc ular risk reduction counseling -10 yr ASCVD risk- 26%, recommende d starting statin and baby ASA Depression screening 171 518546 Z13.31 depression screening tool administer ed, entered into emr, scored and discussed, time greater than 7.5 minutesneg Screening for alcohol abuse 930553150 Z13.39 Morbid obesity 387785448 E66.01 has lost 30-40 lbs in past 5 yrsexercis e limited due to OAdiscusse d dietary changes Hypercholesterolemia 136 06493 E78.00 to start statinascv d risk 26%.LDL 129 Benign pro static hyperplasia with outflow obstruction 383229319 N40.1 Wakes once per night to urinate, mild hesistancy , no split stream , has urgency and frequency during the day. Progressiv josemanuel worse over the years.Will start trial of meds; take qs and monitor for dizziness. Right side sciatica 3202 767770 57653 M54.31 recent inc in symptoms.p lans to give it some timewill enc PT if persists. Intermitte nt claudication 24384182 I73.9 borderline ABIs in 2019 with mild plaque buildup.sx s remain stable, no change.sta rt ASA , as above.no need for surgical interventi on at this time. [id number] Laine Mathis-Jennifer verma PA-C , [facility], [address] [place] [address] 10/19/2020 15:11:25 11/20/2020 15:07:10 Increased frequency of urination 471613798 R35.0 labs ordered.Ul trasound showed PVR of 21 mLWill get eval by Urol as sxs are relative sudden onset Microscopic hematuria 19 1936116 R31.29 Simple renal cyst 130198 09 N28.1 6.7 cm simple cyst/benig n, reassuranc e Right side sciatica 3202 284321 19730 M54.31 recent inc in symptoms.p lans to give it some timewill enc PT if persists. has had steroid injections in the past, not too helpful Mixed hyperlipidemia 267 650319 E78.2 is starting statin rpt lipids in 3mo [id number] SUDHEER Crockett, [facility], [address] [place] [address] 12/12/2020 14:27:04 12/12/2020 15:32:15 Active or passive immunization 185734131 Z23 Myalgia/my ositis - multiple 394516965 M79.10 Just started statin a few wks ago? statin related?St op atorvastat in, will ck labs Multiple joint pain 3567 8005 M25.50 pt requesting screen for Lyme/ tick borne illness Low back pain 535159192 M54.5 R sciatica flare more severe this episodeSxs persist, less severe but has not resolved.P refers no further FU at this time, prefers expectant management Has fu appt in 2-3 wks Increased frequency of urination 254694151 R35.0 Ultrasound showed PVR of 21 mLWas to see Urol but had to cx appt, enc him to r/s [id number] SUDHEER Crockett, [facility], [address] [place] [address] 01/09/2021 07:58:18 01/16/2021 10:55:32 Mixed hyperlipidemia 645874901 E78.2 Cholestero l is not at goalContin ue to work on diet and exercise as discussedH ad anahi ruth atorvastat inWilling to try another statin again.. if sxs recur will not use statins in futureInte grated Nutrition today Prostate s pecific antigen above reference range 949430278 R97.20 Wakes once per night to urinateSom e hesitancyP SA 10, will refer to UrologyU/S of kidneys/bl adder normal PVR 21 mL in September Morbid obesity 930914187 E66.01 has lost 30-40 lbs in past 5 yrsexercis e limited due to OAdiscusse d dietary changes/ Integ Nutrition visit 01/09/21. 15 minutes spent, obesity code utilized. See separate integrated nutrition note for plan/goals set. Lumbago with sciatica 20 2993767 M54.41 Flare lasted 1 moBetter now, will start HEP again. Has had PT.Prefers no referral to [facility] for now [id number] Laine Mathis-Jennifer verma PA-C , [facility], [address] [place] [address] 10/16/2021 07:49:43 10/16/2021 09:20:15 Morbid obesity 840923167 E66.01 has lost 30-40 lbs in past 5 yrsexercis e limited due to OAdiscusse d dietary changes/ Integ Nutrition visit 01/09/21. Adult heal th examination 236462964 Z00.00 Encouraged routine exercise & well rounded dietSees Dentist/Op tometrist routinely- colonoscop y UTD-comple jewel Goodwin at outside pharmacy-1 0 yr ASCVD risk- 26%, recommende d resuming statin-Enc ouraged completion of ACP/HCP/MO LST Forms/ discuss w. family Counseling 352888695 Z71 .9 including cardiovasc ular risk reduction counseling Depression screening 171 351889 Z13.31 depression screening tool administer ed, entered into emr, scored and discussed, time greater than 7.5 minutesNEG Screening for alcohol abuse 816109016 Z13.39 NEG Mixed hyperlipidemia 267 261098 E78.2 Cholestero l is not at goalContin ue to work on diet and exercise as discussedW illing to restart statin Caregiver role strain 12 9145734 Z73.3 jennifer with dementia2 children leave nearby but with limited ability to helpOutrea ch [facility] for consultati on/ assistance Urged FU in 4-6 wks Lumbago with sciatica 20 8367902 M54.41 Flare lasted 1 moBetter now, will start HEP again. Has had PT.Prefers no referral to PSSP for now Neck pain 29191488 M54.2 R sided neck pain w/o s/s of radiculopa thyPT referral placedSeem s muscular [id number] Laine verma PA-C , [facility], [address] [place] [address] 11/13/2021 08:53:01 11/13/2021 09:46:49 Mixed hyperlipidemia 652141420 E78.2 Cholestero l is not at goalContin ue to work on diet and exercise as discussedW illing to restart statin (had muscle cramps w. atorvastat in)If se's develop on pravastati n, please call and let me know you chose to stop it. Caregiver role strain 12 9895498 Z73.3 jennifer with dementia2 children leave nearby but with limited ability to helpW [facility] sched to do home assessment in SeptDiscus sed Memory Care Initit thru [facility]: Gave brochure to contactOff ered Consult w. Dr Kimi umaña an: they are thinking about it. Neck pain 61615211 M54.2 R sided neck pain w/o s/s of radiculopa thyPT referral placed at last visit but chose to do HEP instead; declines PT at this time [id number] Kourtney Gonzalez LPN , [facility], [address] [place] [address] 01/17/2022 11:27:39 01/17/2022 16:00:13 Active or passive immunization 962345420 Z23 [id number] Laine verma PA-C , [facility], [address] [place] [address] 09/04/2022 12:32:49 09/04/2022 15:03:42 Low back pain 817562913 M54.50 recurrent, no recent injury or pain in recent yrsRad to R hip and affecting R knee, limpingWil l start with PTConsider XR Lumbar spine, PSSP consult if pain persists/w orsensWoul d consider trial of steroid inj IF pain persists and is a good candidate. No radicular sxs nowNot taking OtC meds, not helpful Morbid obesity 584823019 E66.01 has maintained wt loss of >50 lbs in past 5 yrsexercis e limited due to OAcongrat on his efforts Intermitte nt claudication 76596324 I73.9 borderline ABIs in 2019 with mild plaque buildup.sx s remain stable, no change.sta rt ASA , as above.no need for surgical interventi on at this time. [id number] Quita Gómez MD , [facility], [address] [place] [address] 08/27/2023 14:37:59 08/27/2023 16:13:16 Paroxysmal atrial fibrillation 359864678 I48.0 New dxEKG ConfirmsAs xDiscussed dx/ importance of treating/ stroke risk and prevention Agrees to txAgrees to r[facility] Intermitte nt claudication 20731580 I73.9 borderline ABIs in 2019 with mild plaque buildup.Re ports he is overall asx, plans to walk morestart ASA , as above.no need for surgical interventi on at this time. Increased frequency of urination 489910518 R35.0 2020 Ultrasound showed PVR of 21 mLHad elev PSA in 2020, ref to Urology, but did not FUPlan close FU in next few wks Normal grief reaction 27 3241739 F43.20 last week after long illnesshe is grieving appropriat josemanuel; but struggling . not sleeping wellHas family/fri ends and good supportsDe clines support groupDecli [facility] ok w. phone call next weekDeclin es rx for insomnia Long-term current use of anticoagulant 276254318 Z79.01 started DOAC today [id number] Toni Hinojosa RN , [facility], [address] [place] [address] 09/08/2023 10:21:17 09/08/2023 12:26:41 Chronic atrial fibrillation 454815176 I48.20 Please [place] [facility] [place]Yaneth nue your metoprolol dailyYou agreed to a trial of coumadin; We need INR checks and gradual dosingNurs ing will discuss more details about coumadin with youFU with in 3 wks CHADDs vasc= 4INR Range 2-3 Normal grief reaction 27 4395827 F43.20 last week after long illnessgri eving appropriat josemanuel; but struggling . not sleeping wellHas family/fri ends and good supportsDe affinity health partners support groupPlan FU in 3 wks Lumbar radiculopathy 128 089675 M54.16 chronic but this feels different and worsewill ck XR and consult w PSSP [id number] HARRY Nevarez, [facility], [address] [place] [address] 09/24/2023 08:10:35 09/25/2023 11:58:09 Paroxysmal atrial fibrillation 293898979 I48.0 [id number] HARRY Nevarez, [facility], [address] [place] [address] 10/02/2023 09:49:06 10/02/2023 20:24:51 Paroxysmal atrial fibrillation 525459720 I48.0 [id number] HARRY Nevarez, [facility], [address] [place] [address] 10/09/2023 09:30:58 10/10/2023 14:16:18 Paroxysmal atrial fibrillation 779978936 I48.0 [id number] HARRY Nvearez, [facility], [address] [place] [address] 10/16/2023 08:31:20 10/21/2023 13:03:39 Paroxysmal atrial fibrillation 721205121 I48.0 [id number] HARRY Nevarez, [facility], [address] [place] [address] 10/23/2023 10:24:37 10/29/2023 13:36:42 Paroxysmal atrial fibrillation 372349967 I48.0 [id number] HARRY Nevarez, [facility], [address] [place] [address] 10/30/2023 08:57:11 11/03/2023 11:17:13 Paroxysmal atrial fibrillation 694092152 I48.0 [id number] HARRY Nevarez, [facility], [address] [place] [address] 11/06/2023 10:27:00 11/09/2023 12:55:35 Paroxysmal atrial fibrillation 494999401 I48.0 [id number] HARRY Nevarez, [facility], [address] [place] [address] 11/20/2023 13:49:01 11/26/2023 20:54:59 Paroxysmal atrial fibrillation 120701671 I48.0 [id number] HARRY Nevarez, [facility], [address] [place] [address] 11/27/2023 14:29:39 11/27/2023 18:33:23 Paroxysmal atrial fibrillation 930995124 I48.0 Active or passive immunization 359386752 Z23 [id number] HARRY Nevarez, [facility], [address] [place] [address] 12/04/2023 09:32:44 12/09/2023 12:08:44 Paroxysmal atrial fibrillation [id number] I48.0 [id number] Marianela Valle LPN , [facility], [address] [place] [address] 12/11/2023 08:24:28 12/15/2023 10:02:55 Paroxysmal atrial fibrillation [id number] I48.0 [id number] Marianela Valle LPN [facility], [address] [place] [address] 12/18/2023 08:39:41 12/23/2023 19:00:35 Paroxysmal atrial fibrillation [id number] I48.0 [id number] Erinn Arvizu RN , [facility], [address] [place] [address] 12/25/2023 08:58:58 12/29/2023 13:15:48 Paroxysmal atrial fibrillation [id number] I48.0 [id number] HARRY Nevarez, [facility], [address] [place] [address] 01/01/2024 09:48:44 01/01/2024 11:52:55 Paroxysmal atrial fibrillation [id number] I48.0 [id number] HARRY Nevarez, [facility], [address] [place] [address] 01/08/2024 09:16:53 01/12/2024 14:24:41 Paroxysmal atrial fibrillation [id number] I48.0 [id number] HARRY Nevarez, [facility], [address] [place] [address] 01/15/2024 08:12:02 01/16/2024 13:50:41 Paroxysmal atrial fibrillation [id number] I48.0 [id number] Erinn Arvizu RN FP, [facility], [address] [place] [address] 01/25/2024 10:20:00 01/26/2024 13:41:10 Paroxysmal atrial fibrillation [id number] I48.0 [id number] Marianela Valle LPN , [facility], [address] [place] [address] 02/01/2024 10:06:35 02/02/2024 12:54:30 Long-term current use of anticoagulant [id number] Z79.01 [id number] Erinn Arvizu RN , [facility], [address] [place] [address] 02/05/2024 08:04:52 02/10/2024 15:51:45 Paroxysmal atrial fibrillation [id number] I48.0 [id number] Marianela Valle LPN , [facility], [address] [place] [address] 02/10/2024 15:05:48 02/15/2024 14:22:30 Paroxysmal atrial fibrillation [id number] I48.0 [id number] Ana Kaminski MD , [facility], [address] [place] [address] 03/01/2024 10:30:21 03/01/2024 11:55:46 Pain of right knee joint [id number] 18628 M25.561 using cane. signif pain. would be open to steroid injection if amenable.w ill ck XR and get sports med consult Prostate s pecific antigen above reference range [id number] R97.20 Wakes 1-2x night to urinate with some obstructiv e sxsPSA is very elevated Long-term current use of anticoagulant [id number] Z79.01 on coumadin Paroxysmal atrial fibrillation [id number] I48.0 rate controlled on metoprolol , AC with warfarin.W ill refer for cardiology consult, has not yet seenNo syncope, SOBWhen insur changes, will switch to DOAC (currently too costly) [id number] Marianela Valle LPN , [facility], [address] [place] [address] 03/08/2024 08:51:21 03/10/2024 14:34:36 Paroxysmal atrial fibrillation [id number] I48.0 Start Xarelto [id number] HARRY Benites, [facility], [address] [place] [address] 03/15/2024 08:11:01 03/15/2024 11:46:14 Paroxysmal atrial fibrillation [id number] I48.0 Start Xarelto [id number] HARRY Morales, [facility], [address] [place] [address] 03/25/2024 07:50:43 03/25/2024 10:30:27 Paroxysmal atrial fibrillation [id number] I48.0 [id number] HARRY Nevarez, [facility], [address] [place] [address] 04/01/2024 08:23:18 04/04/2024 14:02:30 Paroxysmal atrial fibrillation [id number] I48.0 [id number] HARRY Nevarez, [facility], [address] [place] [address] 04/08/2024 08:10:34 04/08/2024 12:24:27 Paroxysmal atrial fibrillation [id number] I48.0 [id number] HARRY Nevarez, [facility], [address] [place] [address] 04/15/2024 08:35:36 04/15/2024 11:14:28 Paroxysmal atrial fibrillation [id number] I48.0 [id number] SAMANTHA Agrawal, [facility], [address] [place] [address] 04/22/2024 10:51:21 04/22/2024 11:12:36 Paroxysmal atrial fibrillation [id number] I48.0 [id number] HARRY Morales, [facility], [address] [place] [address] 05/06/2024 07:56:29 05/06/2024 12:04:14 Paroxysmal atrial fibrillation [id number] I48.0 Health Concerns Section Related Observation LastModified by Organization Detai ls LastModified Time None Recorded Concern Status LastModified by Organization Details LastModified Time None Recorded Advance Directives Directive Y: Payers Encounter Date Sequence Insurance Name Policy Number Policy Jean Covered Member ID Jaen Member ID Guarantor Name 04/01/2024 1 [place] [employer] Tyler De La Rosa Melissa [id number] Tyler De La Rosa Melissa 04/01/2024 2 [place] [id number] Tyler De La Rosa Melissa [id number] Tyler De La Rosa Melissa 04/08/2024 1 [place] [employer] Tyler De La Rosa Melissa [id number] Tyler De La Rosa Melissa 04/08/2024 2 [place] [id number] Tyler De La Rosa Melissa [id number] Tyler De La Rosa Melissa 04/15/2024 1 [place] [employer] Tyler De La Rosa Melissa [id number] Tyler De La Rosa Melissa 04/15/2024 2 [place] [id number] Tyler De La Rosa Melissa [id number] Tyler De La Rosa Melissa 04/22/2024 1 [place] [employer] Tyler De La Rosa Melissa [id number] Tyler De La Rosa Melissa 04/22/2024 2 [place] [id number] Tyler De La Rosa Melissa [id number] Tyler De La Rosa Melissa 05/06/2024 1 [place] [employer] Tyler De La Rosa Melissa [id number] Tyler De La Rosa Melissa 05/06/2024 2 [place] [id number] Shant Melissa [id number] Shant Melissa
[2024-05-25] MEDS: cefTRIAXone sodium 1 GM VIAL IVPUSH (12:33)
[2024-05-25 12:54] VITALS: BP 133/85; PULSE 94; RESP 16; TEMP 36.8; O2SAT 98
--- NOTE | 2024-05-25 13:12 | PC.NURSE ---
patient educated on galindo cath care/ leg bag application. patient ambulated off of unit with belongings using cane
== END 2024-05-25 13:12 | disposition home or self-care (01) ==
PROVIDERS: Emergency Provider Emergency Medicine Emergency Medical Services
DX: N39.0 Urinary tract infection, site not specified (principal); R33.9 Retention of urine, unspecified; I48.91 Unspecified atrial fibrillation; R94.31 Abnormal electrocardiogram [ECG] [EKG]; Z79.01 Long term (current) use of anticoagulants; Z79.899 Other long term (current) drug therapy
CPT/HCPCS: 36415; 51702; 80053; 81001; 84484; 85025; 87086; 93005; 99284; 99285; J0696

== ENCOUNTER → 2024-05-25 10:00 | Outpatient (BNV) | payer MEDICARE, SELFPAY | PROVIDERS: Emergency Provider Emergency Medicine Emergency Medical Services; Visit Provider Internal Medicine | DX: I48.91 Unspecified atrial fibrillation (principal) | CPT/HCPCS: 93010 ==

== ENCOUNTER 2024-06-15 08:08 | Outpatient (AMB) | payer MEDICARE, SELFPAY ==
--- OUTSIDE RECORDS SUMMARY | 2024-06-15 08:18 | XMS_ITS | Data Portability ---
Author Organization [facility], , [facility] Address [address] [place] [address] Care Team Providers Care Waste Specialist Name Role Phone DEANGELO RAMEY School Psychometrist FARIBA ARRIAZA [employer] Production Supervisor [facility] [place] [place] Production Supervisor [phone] DEBBIE RANDHAWA Primary Care Provider ARELY ARGUELLES OTHER Assessment Encounter Date Assessment Date Assessment LastModified by Organization Details LastModified Time 06/08/2024 06/08/2024 [email or web address] pcp [email or web address] Not availa ble 06/08/2024 09:40:02 Plan of Treatment Reminders Order Date Submit Date Provider Last Modified By Organization Details Last Modified Time Details Appointments [facility]k 2024 09:00A M FP TREATMENT NURSE [facility] Not available Not available Not available Sports Med New Patient (20) 2024 08:50A M German Mendoza MD Not available Not available Not available Medical Manageme nt 30 2024 10:30A M EMILY RANDHAWA NP Not available Not available Not available Lab INR, blood 2024 025 [facility], [address] [place] [address], [address], 06/08/2024 15:45:07 INR, blood 2024 025 [facility], [address] [place], [address], 05/27/2024 10:49:06 INR, blood 2024 025 maulik [facility], [address] [place], [address], 05/06/2024 09:59:49 INR, blood 2024 025 JOSÉ MIGUEL [facility], [address] [place], [address], 04/22/2024 11:22:19 INR, blood 2024 025 yue [facility], [address] [place], [address], 04/15/2024 09:29:00 Referral None recorded . Procedures None recorded . Surgeries None recorded . Imaging None recorded . Medication Orders None recorded . Patient TargetsNo targets recorded. Patient InstructionsNo instructions recorded. Reason for Referral None Reported. Results Created Date Observation Date Name Description Value Unit Range Abnormal Flag Note LastModifiedBy Organization Detail LastModifiedTime 03/15/2003/15/2024 POC INR INR POC 1.4 INR 0.9 - 1.1 high Not Available [facility] [address] [place], [address], 03/15/2024 08:54:08 03/25/1903/25/2024 POC INR INR POC 1.3 INR 0.9 - 1.1 high Not Available [facility] [address] [place], [address], 03/25/2024 08:41:16 04/01/1904/01/2024 POC INR INR POC 1.5 INR 0.9 - 1.1 high Not Available [facility] [address] [place], [address], 04/01/2024 09:10:08 04/08/1904/08/2024 POC INR INR POC 1.5 INR 0.9 - 1.1 high Not Available [facility] [address] [place], [address], 04/08/2024 09:44:13 04/15/1904/15/2024 POC INR INR POC 2.0 INR 0.9 - 1.1 high Not Available [facility] [address] [place], [address], 04/15/2024 09:13:02 04/22/19 25 04/22/2024 POC INR INR POC 2.5 INR 0.9 - 1.1 high Not Available [facility] [address] [place], [address], 04/22/2024 11:22:18 05/06/19 25 05/06/2024 POC INR INR POC 2.6 INR 0.9 - 1.1 high Not Available [facility] [address] [place], [address], 05/06/2024 08:45:03 05/28/19 25 05/27/2024 POC INR INR POC 3.6 INR 0.9 - 1.1 high Not Available [facility] [address] [place], [address], 05/27/2024 10:49:06 06/09/19 25 06/08/2024 POC INR INR POC 2.0 INR 0.9 - 1.1 high Not Available [facility] [address] [place], [address], 06/08/2024 15:45:07 Result Notes None recorded. 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 Debbie Worthy, MANAGER FINANCIAL PLANNING null, [facility] 1 10:53:12 Lumbago with sciatica 504110637 Active 2020 Laine verma PA-C [address] [place] [address], [address] , [facility] 1 08:42:48 Obesity 068544275 Active 2020 BMI = 37 after wt loss past 2 yrs. Previous morbid obesity. sylvia Camp RD, LDN [address] [place] [address], [address] , [facility] 1 09:12:16 Intermit tent claudica tion 31979762 Active 2022 Laine verma PA-C [address] [place] [address], [address] , [facility] 3 18:37:28 Paroxysm al atrial fibrilla tion 172904709 Active 2023 Laine verma PA-C [address] [place] [address], , [facility] 4 16:03:57 Long-ter m current use of anticoag ulant 913166375 Active 2023 Laine verma PA-C [address] [place] [address], , [facility] 4 16:23:31 Retentio n of urine 168961911 Active [address], , [facility] 5 05:51:56 Prostate specific antigen above referenc e range 835415688 Active 2024 SAUL JAMESON [address] [place] [address], , [facility] 5 05:52:15 Mixed hyperlip idemia 225164184 Active 2003 Rashmi Enriquez MD [address] [place] [address], , [facility] 6 09:02:32 Headache 57219368 Completed 200603/05/2011 Rashmi Enriquez MD [address] [place] [address], , [facility] 6 14:23:02 Cough 95482277 Completed 200703/05/2011 Rashmi Enriquez MD [address] [place] [address], , [facility] 6 14:23:02 Osteoart hritis of knee 295590752 Completed 200312/18/2013 Rashmi Enriquez MD [address] [place] [address], , [facility] 6 14:23:01 Actinic keratosi s 914697415 Completed 200303/05/2011 Rashmi Enriquez MD [address] [place] [address], , [facility] 6 14:23:01 Pure hypercho lesterol emia 379176823 Completed 200303/05/2011 Rashmi Enriquez MD [address] [place] [address], , [facility] 6 14:23:01 Urticari a 384204143 Completed 03/05/2011 Rashmi Enriquez MD [address] [place] [address], , [facility] 6 14:23:01 Localize d, primary osteoart hritis 008339277 Completed 200312/18/2013 Rashmi Enriquez MD [address] [place] [address], , [facility] 6 14:23:01 Breathin g painful 78562483 Completed 200003/05/2011 Rashmi Enriquez MD [address] [place] [address], , [facility] 6 14:23:02 Pneumoni a 521725112 Completed 200703/05/2011 Rashmi Enriquez MD [address] [place] [address], [address] , [facility] 6 14:23:01 Knee pain Completed 200308/31/2012 Rashmi Enriquez MD [address] [place] [address], [address] , [facility] 6 14:23:02 Verruca vulgaris 35669374 Completed 200303/05/2011 Rashmi Enriquez MD [address] [place] [address], [address] , [facility] 6 14:23:01 Chest pain 80953339 Completed 200503/05/2011 Rashmi Enriquez MD [address] [place] [address], [address] , [facility] 6 14:23:02 Dysphagi a 45436460 Completed 200503/05/2011 Rashmi Enriquez MD [address] [place] [address], [address] , [facility] 6 14:23:02 Hyperlip idemia 97887698 Completed 200203/05/2011 Rashmi Enriquez MD [address] [place] [address], [address] , [facility] 6 14:23:01 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 Procedures Surgical History Date Name Laterality Status Provider Name and Address Organization Details Recorded Time 09/08/19 24 [id number] completed Laine castelan PA-C [address] [place], [address], [facility] 09/08/2023 11:56:13 09/08/19 24 Coumadin Teaching completed Susy Jade LPN [facility] 09/08/2023 12:32:36 04/28/19 24 Medicare Wellness Visit cancelled Sowmya Teague [facility] 04/28/2023 10:40:16 10/22/19 23 Medicare Wellness Visit cancelled Rosana Bender [facility] 10/21/2022 08:46:56 10/17/19 22 Medicare Wellness Visit completed Rosana Bender [facility] 10/16/2021 08:17:13 10/17/19 22 Alcohol use screening completed Rosana Bender [facility] 10/16/2021 08:17:13 10/17/19 22 Cardiovascular disease risk reduction counseling completed Rosana Bender [facility] 10/16/2021 08:17:13 10/09/19 21 Medicare Wellness Visit [facility]08[facility]2020 08:38:47 10/09/19 21 prevention-cardiov ascular risk reduction counseling completed [facility] 10/08/2020 08:38:47 10/09/19 21 prevention-annual alcohol misuse screening completed [facility] 10/08/2020 08:38:47 08/22/19 21 01782: Therapeutic Exercise completed Santo Bueno, PT [address] [place], [address], [facility] 08/21/2020 11:57:35 08/22/19 21 Treatment and Advice completed Santo Bueno, PT [address] [place], [address], [facility] 08/21/2020 11:38:28 07/18/19 21 Physical Activity Counselling completed Santo Bueno, PT [address] [place], [address], [facility] 07/17/2020 12:34:42 07/18/19 21 01562: PT Eval Low Complexity completed Santo Bueon, PT [address] [place], [address], [facility] 07/17/2020 12:34:42 07/18/19 21 Treatment and Advice completed Santo Bueno, PT [address] [place], [address], [facility] 07/17/2020 13:01:03 09/14/19 19 Medicare Wellness Visit completed Jaz Payne [facility] 09/13/2018 08:53:02 01/28/20 17 Medicare Wellness Visit completed Malissa Tan [facility] 01/27/2017 14:42:42 03/16/19 17 extraction of cataract completed Laine castelan PA-C [address] [place], [address], [facility] 10/08/2020 09:54:47 06/28/19 16 Medicare Wellness Visit completed Jessica Chery [facility] 06/28/2015 14:02:30 06/28/19 16 Seborrheic Keratosis completed Rashmi Enriquez MD [address] [place], [address], [facility] 06/29/2015 09:00:32 03/22/19 15 <strong>Pain</stro ng> Assessment and Follow-up (G8730) completed Santo Bueno, PT [address] [place], [address], [facility] 03/22/2014 14:36:00 03/22/19 15 <strong>Falls</str jennie> Risk Assessment - No Risk (1101F) completed Santo Bueno, PT [address] [place], [address], [facility] 03/22/2014 14:36:00 03/22/19 15 <strong>Functional </strong> Outcome w/ POC (G8539) completed Santo Bueno, PT [address] [place], [address], [facility] 03/22/2014 14:36:00 03/22/19 15 <strong>BMI</stron g> Documented Outside Normal Parameters, no Follow-up Documented, Reason not Given (G8419) completed Santo Bueno, PT [address] [place], [address], [facility] 03/23/2014 20:32:01 03/22/19 15 Current <strong>Medication s</strong> Documented (G8427) completed Santo Bueno, PT [address] [place], [address], [facility] 03/22/2014 14:36:00 03/22/19 15 45798: PT Evaluation completed Santo Bueno, PT [address] [place], [address], [facility] 03/22/2014 14:36:00 03/22/19 15 Treatment and Advice completed Santo Bueno, PT [address] [place], [address], [facility] 03/22/2014 14:30:47 12/02/19 14 Medicare Wellness Visit completed Jessica Chery [facility] 12/01/2013 10:33:38 09/01/19 13 Medicare Wellness Visit completed Rebeca Sanchez [facility] 08/31/2012 09:17:14 03/05/20 11 Medicare Wellness Visit completed Catalino Tang [facility] 03/05/2011 15:21:21 total knee replacement completed Laine castelan PA-C [address] [place], [address], [facility] 10/08/2020 09:29:32 Imaging Results None recorded. Procedure Notes None recorded. Medical Equipment None Reported. 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 Not Available Not Available Not Available [...] TAKE 1 TABLET BY MOUTH EVERY DAY DIRECTED BY COUMADIN NURS 2024 active Not Available Not Available Not Avai lable sulfameth oxazole 800 mg-trimet hoprim 160 mg [...] Available Not Available warfarin 3 mg tablet warfarin 3mg daily jericain g to coumadin schedule 2024 active Not Available Not Available Not Avai lable Celebrex 200 mg capsule Take 1 capsule [...] Not Available cephalexi n 500 mg capsule 06/08 completed Not Available Not Available Not Available warfarin 5 mg tablet TAKE 1 TABLET BY MOUTH EVERY DAY DIRECTED BY COUMADIN NURSE 2024 active Not Available Not Available Not Avai lable pravastat in 20 mg tablet TAKE 1 [...] Available Not Available Not Available Fluad Quad [id number] (65yr up)(PF) 60 mcg (15 mcg x 4)/0.5mL IM syringe PHARMACY ADMINIST ERED 07/16 completed Not Available Not Available Not Available Vitals Date Recorded Body height Heart rate Systolic blood pressure Diastolic blood pressure Provider Name and Address Organization Details Last Updated DateTime 04/22/2024 180.34 cm 76 /min 118 mm[Hg] 80 mm[Hg] Marianela Valle LPN [facility] 04/22/2024 11:34:47 Date Recorded Body height Body mass index (BMI) Body weight Heart rate Oxygen saturation Oxygen saturation in Arterial blood by Pulse oximetry Systolic blood pressure Diastolic blood pressure Provider Name and Address Organization Details Last Updated DateTime 5 180.34 cm 30.7 kg/m2 78527.7 2 g 87 /min 96 % 96 % 110 mm[Hg] 76 mm[Hg] Marianela Valle LPN [facility] 5 09:26:21 Social History Question Answer Notes LastModified by Organizat ion Details LastModified Time Tobacco Smoking Status Never Smoker Not Available [facility] 01/30/2011 04:53:49 Do You Have An Advance Directive? Yes Information not available 07/28/2011 What Is Your Level Of Alcohol Consumption? Moderate 2x Week Few Beers Information not available 09/07/2017 Do You Wear [...] E-cigarettes Or Vape? 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 Yes Information not available 10/16/2021 How Many Days In The Past Year Have You Had A Heavy Drinking Consumption (4+ Female, 5+ Male)? 0 [email or web address] Information not available 09/13/2018 Are There Any Guns Present In Your Home? No Information not available 07/28/2011 Do You Use Insect Repellent Routinely? Yes Information not available 10/08/2020 Live Alone Or With Others? With Others Information not available 07/28/2011 CSRP - Narcotics No Informat ion not available 07/28/2011 CSRP Contract Signed And Discussed No Information not available 07/28/2011 Patient Has Health Care Proxy Signed And In Chart Karyn spears) Information not available 11/26/2017 CSRP - Stimulants No Information not available 03/20/2014 CSRP - Suboxone No Informati on not available 06/28/2015 CCM Consent Discussion 10/16/2021 [email or web address] Information not available 10/29/2021 Marital Status [email or web address] [id number] Information not available 01/30/2011 Mosquito Repellent Used Routinely Yes Information not available 03/05/2011 What Was The Date Of Your Most Recent Tobacco Screening? 06/08/2024 [email or web address] Information not available 06/08/2024 How Many Children Do You Have? 2 [...] Carbon Monoxide Detectors In Your Home? Yes [email or web address] Information not available 10/08/2020 Are You Passively Exposed To Smoke? No [email or web address] Information not available 10/08/2020 Do You Or Have You Ever Used Smokeless Tobacco? Never Used Smokeless Tobacco [email or web address] Information not available 04/15/2019 How Much Tobacco Do You Smoke? No Information not available 06/28/2015 General Stress Level Medium Information not available 07/28/2011 Do You Use Any Illicit Or Recreational Drugs? No [email or web address] Information not available 10/08/2020 Do You Use Sunscreen Routinely? Yes Information not available 03/05/2011 Do You Or Have You Ever Used Any Other Forms Of Tobacco Or Nicotine? No [email or web address] Information not available 09/04/2022 Sex: Male Functional Status Question Answer Note LastModified by Organization D etails LastModified Time What is your exercise level? None Information not available 10/16/2021 Mental Status None recorded. Family History Nothing Reported Notes:No cancer, DM, CAD, ht n. Sister: 'old age' 80+ Medical History Condition Response Hyperlipidemia Y Osteoarthritis Y Chronic Back Pain Y Immunizations Vaccine Type Date Status Note Provider Nam e and Address Organization Details Recorded Time Influenza, split virus, trivalent, preservative 1 completed Not Available [facility] 04/02/2019 02:18:11 Influenza, split virus, trivalent, preservative 9 completed Not Available [facility] 04/02/2019 02:29:23 Tdap 7 completed Not Available [facility] 01/29/2011 05:21:55 Influenza, split virus, trivalent, preservative 2 completed Not Available [facility] 04/02/2019 02:18:34 Influenza, split virus, trivalent, PF 3 completed Not Available [facility] 04/02/2019 02:26:35 Influenza, high-dose, trivalent, PF 4 completed Not Available [facility] 04/02/2019 02:19:19 Influenza, high-dose, trivalent, PF 5 completed Not Available [facility] 04/02/2019 02:29:57 Td (adult), 2 Lf tetanus toxoid, preservative free, adsorbed 6 completed Not Available [facility] 04/02/2019 02:20:36 Pneumococcal conjugate PCV 13 6 completed Not Available [facility] 04/02/2019 02:39:42 Influenza, high-dose, trivalent, PF 6 completed Not Available [facility] 04/02/2019 02:21:05 Influenza, high-dose, trivalent, PF 7 completed Not Available [facility] 04/02/2019 02:22:02 Influenza, high-dose, trivalent, PF 9 completed Not Available [facility] 04/02/2019 02:34:18 pneumococcal polysaccharide PPV23 0 completed Not Available [facility] 04/02/2019 02:34:19 Influenza, high-dose, trivalent, PF 9 completed Not Available [facility] 04/02/2019 02:24:36 COVID-19, mRNA, LNP-S, PF, 100 mcg/0.5mL dose or 50 mcg/0.25mL dose 1 completed [facility] 04/21/2020 10:49:38 COVID-19, mRNA, LNP-S, PF, 100 mcg/0.5mL dose or 50 mcg/0.25mL dose 1 completed [facility] 05/19/2020 11:00:30 Influenza, high-dose, quadrivalent, PF 1 completed Rosana Bender [facility] 12/12/2020 14:50:45 Influenza, high-dose, quadrivalent, PF 2 completed Kourtney Gonzalez [facility] 01/17/2022 11:53:53 COVID-19, mRNA, LNP-S, PF, 100 mcg/0.5mL dose or 50 mcg/0.25mL dose 2 completed [place] [facility] 04/04/2021 14:18:45 influenza, unspecified formulation 0 completed Not Available [facility] 01/29/2011 05:20:34 Past Encounters Encounter ID Performer Location Encounter Start Date Encounter Closed Date Diagnosis/Indication Diagnosis SNOMED-CT Code Diagnosis ICD10 Code Diagnosis Note [id number] Physical Therapy, [facility] [address] [place] [address] 01/21/2000 12:00:00 04/05/2008 02:02:29 [id number] [facility], OFFICE [address] [place] [address] 02/27/2000 15:05:00 04/05/2008 02:02:29 [id number] [facility], OFFICE [address] [place] [address] 07/14/2000 10:45:00 04/05/2008 02:02:29 [id number] [facility] - [facility] [address] [place] [address] 08/30/2001 10:21:58 04/05/2008 02:02:29 [id number] [facility], OFFICE [address] [place] [address] 03/31/2002 09:50:47 04/05/2008 02:02:29 [id number] LAB - [facility] [place] [place] [address] 03/31/2002 10:52:19 04/05/2008 02:02:29 [id number] LAB - [address] [place] [address] 04/11/2002 10:26:12 04/05/2008 02:02:29 [id number] LAB - [facility] [place] [address] 04/11/2002 16:52:35 04/05/2008 02:02:29 [id number] [facility], OFFICE [address] [place] [address] 04/17/2003 13:18:23 04/18/2003 08:07:13 [id number] LAB - [facility] [place] [address] 05/03/2003 07:45:50 05/03/2003 07:46:02 [id number] [facility], [address]ICE [address] [place] [address] 05/18/2003 10:21:30 05/18/2003 17:16:53 [id number] LAB - [facility] [place] [address] 06/01/2003 07:35:06 06/01/2003 09:23:00 [id number] [facility], OFFICE [address] [place] [address] 08/23/2003 14:45:36 08/24/2003 11:18:14 [id number] LAB - [facility] [place] [address] 10/05/2003 07:41:44 10/05/2003 11:05:38 [id number] LAB - [facility] [place] [address] 01/04/2004 08:05:29 01/04/2004 08:05:33 [id number] [facility], OFFICE [address] [place] [address] 01/19/2004 15:45:52 01/20/2004 10:47:55 [id number] [facility], OFFICE [address] [place] [address] 03/27/2004 11:11:01 03/28/2004 08:51:20 [id number] LAB - [facility] [address] [place] [address] 03/27/2004 12:02:21 03/27/2004 12:02:37 [id number] [facility], OFFICE [address] [place] [address] 07/04/2004 08:34:38 07/04/2004 09:42:37 [id number] LAB - [facility] [address] [place] [address] 09/25/2004 08:16:46 09/25/2004 08:16:51 [id number] [facility], OFFICE [address] [place] [address] 02/25/2005 08:14:30 04/05/2008 02:02:29 [id number] LAB - [facility] [place] [address] 03/31/2005 08:58:25 03/31/2005 08:58:51 [id number] [facility], OFFICE [address] [place] [address] 06/11/2005 16:02:27 04/05/2008 02:02:29 [id number] [facility], OFFICE [address] [place] [address] 11/24/2005 11:53:53 04/05/2008 02:02:29 [id number] [facility] [address] [place] [address] 11/24/2005 12:28:01 04/05/2008 02:02:29 [id number] LAB - [facility] [address] [place] [address] 03/17/2006 07:57:48 03/17/2006 07:57:54 [id number] [facility], OFFICE [address] [place] [address] 04/16/2006 10:46:07 04/17/2006 08:24:07 [id number] [facility], OFFICE [address] [place] [address] 10/02/2006 13:42:46 10/05/2006 08:33:57 [id number] [facility], OFF[address] [place] [address] 02/08/2007 14:23:15 04/05/2008 02:02:29 [id number] LAB - [facility] [id number] 6 02/18/2007 09:35:43 02/18/2007 09:35:48 [id number] [facility], OFFICE [address] [id number] 6 06/15/2007 08:48:22 04/05/2008 02:02:29 [id number] Radiology , [facility] [address] [id number] 6 06/15/2007 10:24:30 06/16/2007 09:35:30 [id number] Radiology , [facility] [address] [id number] 6 06/15/2007 00:00:00 04/05/2008 02:02:29 [id number] LAB - [facility] FOX [id number] 6 01/25/2008 08:47:36 01/25/2008 08:47:45 [id number] [facility], OFFICE [address] [id number] 6 08/02/2008 07:52:52 08/17/2008 11:35:48 [id number] [facility], OFFICE [address] [place] [id number] 6 12/15/2008 16:27:47 12/18/2008 11:25:06 [id number] LAB - [facility] [place] [address] 08/02/2008 09:10:43 08/02/2008 09:10:51 [id number] [facility], OFFICE [id number] 6 10/30/2009 08:02:17 11/01/2009 12:20:23 [id number] [facility], OFFICE [address] [id number] 6 11/20/2010 07:14:13 11/20/2010 09:03:41 [id number] [facility], OFFICE [id number] 6 03/05/2011 14:45:50 03/05/2011 16:06:36 [id number] [facility], OFFICE [address] [id number] 6 07/28/2011 08:31:25 07/29/2011 14:53:57 [id number] [facility], [address]ICE [address] [place] [address] 11/19/2011 06:27:00 11/19/2011 08:57:52 [id number] FOX Albarado, [facility], OFFICE [address] [place] [address] 04/21/2012 09:14:44 04/21/2012 10:15:01 [id number] Jessica Chery MA , [facility], [address]ICE [address] [place] [address] 08/31/2012 09:07:06 08/31/2012 11:22:00 [id number] [facility], OFFICE [address] [place] [address] 12/01/2012 06:20:26 12/01/2012 16:00:57 Influenza vaccine needed 8823884277 [id number] Laine Betancourt [facility], [address]ICE [address] [place] [address] 6 04/14/2013 09:00:27 04/14/2013 09:46:35 Chest wall pain 491519804 Morbid obesity 548012510 Actinic keratosis 176224168 [id number] Janet Jain MA , [facility], OFFICE [address] [place] [address] 12/01/2013 07:45:53 12/01/2013 11:05:29 Adult health examination 719650499 see Risk Assessment and Lifestyle Change Counseling section above Counseling 699248062 Mixed hyperlipidemia 760229990 Negro calderon is at goal Continue to work on diet and exercise as discussed Degenerati ve joint disease involving multiple joints 440612867 Morbid obesity 189909412 Fatigue 46809087 [id number] FOX Zhu, [facility], OFFICE [address] [place] [address] 01/11/2014 06:16:13 01/11/2014 10:51:44 Influenza vaccine needed 7514023523 [id number] [facility], OFFICE [address] [place] [address] 03/20/2014 09:12:16 03/22/2014 15:47:29 Degenerative joint disease involving multiple joints 509595721 [id number] Physical Therapy, [facility] [address] [place] [address] 03/22/2014 13:31:17 03/24/2014 07:33:36 Hip pain 98290270 [id number] Bridgett Seo LPN , [facility], OFFICE [address] [place] [address] 12/19/2014 08:55:01 12/19/2014 11:56:45 Influenza vaccine needed 4505314720 106 Z28.3 [id number] Delphine Ivey , [facility], [address] [place] [address] 06/28/2015 13:43:23 07/02/2015 09:50:54 Mixed hyperlipidemia 318392521 E78.2 Adult heal th examination 774472018 Z00.00 see Risk Assessment and Lifestyle Change Counseling section above Counseling 084649246 Z71 .9 Active or passive immunization 158953505 Z23 Degenerati ve joint disease involving multiple joints 059285522 M15.9 Morbid obesity 707238348 E66.01 Low back pain 612242441 M54.5 [id number] Rashmi Enriquez MD , [facility], OFFICE [address] [place] [address] 01/10/2016 10:51:33 01/11/2016 14:11:25 Active or passive immunization 369121086 Z23 Mixed hyperlipidemia 267 100210 E78.2 Chest pain 87172033 R07. 9 [id number] Rashmi Enriquez MD , [facility], [address] [place] [address] 02/15/2016 09:24:09 02/15/2016 10:08:43 Mixed hyperlipidemia 971658967 E78.2 [id number] Janis Bazan MA , [facility], [address] [place] [address] 12/05/2016 06:48:51 12/08/2016 12:07:05 Active or passive immunization 832361997 Z23 [id number] Rashmi Enriquez MD , [facility], [address] [place] [address] 01/27/2017 14:35:24 01/27/2017 15:38:09 Adult health examination 489933667 Z00.00 see Risk Assessment and Lifestyle Change Counseling section above Counseling 889479833 Z71 .9 Degenerati ve joint disease involving multiple joints 428789921 M15.9 Mixed hyperlipidemia 267 270439 E78.2 Low back pain 738052220 M54.5 [id number] Rashmi Enriquez MD , [facility], [address] [place] [address] 09/07/2017 09:18:53 09/07/2017 09:48:31 Bilateral cataracts 05948252 H26.9 Preoperati ve cardiovascular examination 931066920 Z01.459 [id number] Rashmi Enriquez MD , [facility], [address] [place] [address] 05/25/2018 14:43:56 05/27/2018 11:34:19 Backache 571870214 M54.9 Active or passive immunization 551025584 Z23 Low back pain 527225735 M54.5 [id number] Lucia Foster NP , [facility], [address] [place] [address] 08/06/2018 15:02:35 08/10/2018 10:49:13 Low back pain 991393376 M54.5 Will call patient with radiology report - meanwhile back precaution s. Consider PSSP referral [id number] Rashmi Enriquez MD , [facility], [address] [place] [address] 09/13/2018 08:50:24 09/13/2018 09:33:41 Adult health examination 416625777 Z00.00 see Risk Assessment and Lifestyle Change Counseling section above Counseling 274767749 Z71 .9 Depression screening 171 951587 Z13.89 depression screening tool administer ed, entered into emr Degenerati ve joint disease involving multiple joints 294246074 M15.9 Mixed hyperlipidemia 267 388939 E78.2 Actinic keratosis 007 L57.0 Intermitte nt claudication 39189529 I73.9 Neuropathy 270253479 G62 .9 [id number] Susy Jade LPN , [facility], [address] [place] [address] 12/07/2018 14:48:59 12/07/2018 15:23:30 Active or passive immunization 441534542 Z23 [id number] Hadley Peck MD , [facility], [address] [place] [address] 04/15/2019 17:19:25 04/19/2019 10:30:04 Hiccough present 841665910 R06.6 Has been having hiccoughs for 3 [...] ER. Pt and comf with this plan [id number] Gloria Grimes, FP, [facility], [address] [place] [address] 07/16/2020 12:22:43 07/17/2020 16:32:52 Backache 639880425 M54.9 Advised to take 600mg every 6 hours to help with inflammati on and pain, advised to use heat for 15min every 2 hours to help relax the muscles. Referred to PT. Call with new/worsen ing symptoms or if no improvemen t. Pt agrees with plan. Right side sciatica 3202 079957 75584 M54.31 Advised to take 600mg every 6 hours to help with inflammati on and pain, advised to use heat for 15min every 2 hours to help relax the muscles, and soak in 2 cups epsom salt bath 1x daily for 20min to help with muscle relaxation . Call with new/worsen ing symptoms or if no improvemen t. Pt agrees with plan. [id number] Santo Bueno , PT Physical Therapy, [facility] [address] [place] [address] 07/17/2020 12:11:21 07/19/2020 13:34:34 Low back pain 228092501 M54.5 74 year old {{male* fe male}} [...] in this time frame. Treatment to Include: therapeuanjelica c exercise and manual therapy [id number] Santo Bueno , PT Physical Therapy, [address] [address] 08/21/2020 11:03:54 08/21/2020 17:24:08 Low back pain 958749967 M54.5 Patient Goals: Able to sleep through [...] demands.(0 08/21/2020) his goals have been met. [id number] Laine verma PA-C , [facility], OFF[address] [place] [address] 10/08/2020 08:49:30 10/08/2020 10:25:40 Adult health examination 112414570 Z00.00 Encouraged routine exercise & well rounded dietSees Dentist/Op tometrist routinely- colonoscop y UTD-is considerin g Shingrix, other vaccines are UTD-10 yr ASCVD risk- 26%, recommende d starting statin and baby ASA-Encour aged completion of ACP/HCP/MO LST Forms/ discuss w. family Counseling 770729845 Z71 .9 including cardiovasc ular risk reduction counseling -10 yr ASCVD risk- 26%, recommende d starting statin and baby ASA Depression screening 171 326111 Z13.31 depression screening tool administer ed, entered into emr, scored and discussed, time greater than 7.5 minutesneg Screening for alcohol abuse 333998569 Z13.39 Morbid obesity 352674942 E66.01 has lost 30-40 lbs in past 5 yrsexercis e limited due to OAdiscusse d dietary changes Hypercholesterolemia 136 58070 E78.00 to start statinascv d risk 26%.LDL 129 Benign pro static hyperplasia with outflow obstruction 405438975 N40.1 Wakes once per night to urinate, mild hesistancy , no split stream , has urgency and frequency during the day. Progressiv josemanuel worse over the years.Will start trial of meds; take qs and monitor for dizziness. Right side sciatica 3202 324736 76798 M54.31 recent inc in symptoms.p lans to give it some timewill enc PT if persists. Intermitte nt claudication 37640351 I73.9 borderline ABIs in 2019 with mild plaque buildup.sx s remain stable, no change.sta rt ASA , as above.no need for surgical interventi on at this time. [id number] Laine verma PA-C , [facility], [address] [place] [address] 10/19/2020 15:11:25 11/20/2020 15:07:10 Increased frequency of urination 582906578 R35.0 labs ordered.Ul trasound showed PVR of 21 mLWill get eval by Urol as sxs are relative sudden onset Microscopic hematuria 19 7799410 R31.29 Simple renal cyst 066179 09 N28.1 6.7 cm simple cyst/benig n, reassuranc e Right side sciatica 3202 160459 35196 M54.31 recent inc in symptoms.p lans to give it some timewill enc PT if persists. has had steroid injections in the past, not too helpful Mixed hyperlipidemia 267 295752 E78.2 is starting statin rpt lipids in 3mo [id number] Laine verma PA-C , [facility], [address] [place] [address] 12/12/2020 14:27:04 12/12/2020 15:32:15 Active or passive immunization 446577269 Z23 Myalgia/my ositis - multiple 098618234 M79.10 Just started statin a few wks ago? statin related?St op atorvastat in, will ck labs Multiple joint pain 3567 8005 M25.50 pt requesting screen for Lyme/ tick borne illness Low back pain 821510592 M54.5 R sciatica flare more severe this episodeSxs persist, less severe but has not resolved.P refers no further FU at this time, prefers expectant management Has fu appt in 2-3 wks Increased frequency of urination 966596700 R35.0 Ultrasound showed PVR of 21 mLWas to see Urol but had to cx appt, enc him to r/s [id number] Laine verma PA-C , [facility], [address] [place] [address] 01/09/2021 07:58:18 01/16/2021 10:55:32 Mixed hyperlipidemia 432626986 E78.2 Cholestero l is not at goalContin ue to work on diet and exercise as discussedH ad anahi croninvastamerna inWilling to try another statin again.. if sxs recur will not use statins in futureInte grated Nutrition today Prostate s pecific antigen above reference range 566504324 R97.20 Wakes once per night to urinateSom e hesitancyP SA 10, will refer to UrologyU/S of kidneys/bl adder normal PVR 21 mL in September Morbid obesity 071570102 E66.01 has lost 30-40 lbs in past 5 yrsexercis e limited due to OAdiscusse d dietary changes/ Integ Nutrition visit 01/09/21. 15 minutes spent, obesity code utilized. See separate integrated nutrition note for plan/goals set. Lumbago with sciatica 20 6656454 M54.41 Flare lasted 1 moBetter now, will start HEP again. Has had PT.Prefers no referral to PSSP for now [id number] Laine verma PA-C , [facility], [address] [place] [address] 10/16/2021 07:49:43 10/16/2021 09:20:15 Morbid obesity 711913486 E66.01 has lost 30-40 lbs in past 5 yrsexercis e limited due to OAdiscusse d dietary changes/ Integ Nutrition visit 01/09/21. Adult heal th examination 460593806 Z00.00 Encouraged routine exercise & well rounded dietSees Dentist/Op tometrist routinely- colonoscop y UTD-comple jewel Goodwin at outside pharmacy-1 0 yr ASCVD risk- 26%, recommende d resuming statin-Enc ouraged completion of ACP/HCP/MO LST Forms/ discuss w. family Counseling 676099345 Z71 .9 including cardiovasc ular risk reduction counseling Depression screening 171 915227 Z13.31 depression screening tool administer ed, entered into emr, scored and discussed, time greater than 7.5 minutesNEG Screening for alcohol abuse 441882955 Z13.39 NEG Mixed hyperlipidemia 267 746996 E78.2 Cholestero l is not at goalContin ue to work on diet and exercise as discussedW illing to restart statin Caregiver role strain 12 0913196 Z73.3 denisse with dementia2 children leave nearby but with limited ability to helpOutrea W [facility] for [facility] on/ assistance Urged FU in 4-6 wks Lumbago with sciatica 20 2324349 M54.41 Flare lasted 1 moBetter now, will start HEP again. Has had PT.Prefers no referral to PSSP for now Neck pain 03815996 M54.2 R sided neck pain w/o s/s of radiculopa thyPT referral placedSeem s muscular [id number] Laine Mathis-Jennifer verma PA-C , [facility], [address] [place] [address] 11/13/2021 08:53:01 11/13/2021 09:46:49 Mixed hyperlipidemia 878283987 E78.2 Cholestero l is not at goalContin ue to work on diet and exercise as discussedW illing to restart statin (had muscle cramps w. atorvastat in)If se's develop on pravastati n, please call and let me know you chose to stop it. Caregiver role strain 12 1911434 Z73.3 denisse with dementia2 children leave nearby but with limited ability to helpW [place] [facility] sched to do home assessment in SeptDiscus sed Memory Care Initit thru [facility]: Gave brochure to contactOff ered Consult w. Dr Kimi umaña an: they are thinking about it. Neck pain 46865027 M54.2 R sided neck pain w/o s/s of radiculopa thyPT referral placed at last visit but chose to do HEP instead; declines PT at this time [id number] Kourtney Gonzalez LPN , [facility], [address] [place] [address] 01/17/2022 11:27:39 01/17/2022 16:00:13 Active or passive immunization 688034130 Z23 [id number] Laine verma PA-C , [facility], [address] [place] [address] 09/04/2022 12:32:49 09/04/2022 15:03:42 Low back pain 659588264 M54.50 recurrent, no recent injury or pain in recent yrsRad to R hip and affecting R knee, limpingWil l start with PTConsider XR Lumbar spine, PSSP consult if pain persists/w orsensWoul d consider trial of steroid inj IF pain persists and is a good candidate. No radicular sxs nowNot taking OtC meds, not helpful Morbid obesity 762451158 E66.01 has maintained wt loss of >50 lbs in past 5 yrsexercis e limited due to OAcongrat on his efforts Intermitte nt claudication 45378585 I73.9 borderline ABIs in 2019 with mild plaque buildup.sx s remain stable, no change.sta rt ASA , as above.no need for surgical interventi on at this time. [id number] Quita Gómez MD , [facility], [address] [place] [address] 08/27/2023 14:37:59 08/27/2023 16:13:16 Paroxysmal atrial fibrillation 439046768 I48.0 New dxEKG ConfirmsAs xDiscussed dx/ importance of treating/ stroke risk and prevention Agrees to txAg[facility] r[facility] Intermitte nt claudication 43602468 I73.9 borderline ABIs in 2019 with mild plaque buildup.Re ports he is overall asx, plans to walk morestart ASA , as above.no need for surgical interventi on at this time. Increased frequency of urination 157944673 R35.0 2020 Ultrasound showed PVR of 21 mLHad elev PSA in 2020, ref to Urology, but did not FUPlan close FU in next few wks Normal grief reaction 27 5866207 F43.20 last week after long illnesshe is grieving appropriat josemanuel; but struggling . not sleeping wellHas family/fri ends and good supportsDe clines support groupDecli elfego PCBH today, ok w. phone call next weekDeclin es rx for insomnia Long-term current use of anticoagulant 450411130 Z79.01 started DOAC today [id number] Toni Hinojosa RN FP, [facility], [address] [place] [address] 09/08/2023 10:21:17 09/08/2023 12:26:41 Chronic atrial fibrillation 225161920 I48.20 Please contact [facility] Cardiol for appt!Yaneth nue your metoprolol dailyYou agreed to a trial of coumadin; We need INR checks and gradual dosingNurs ing will discuss more details about coumadin with youFU with in 3 wks CHADDs vasc= 4INR Range 2-3 Normal grief reaction 27 1434545 F43.20 last week after long illnessgri eving appropriat josemanuel; but struggling . not sleeping wellHas family/fri ends and good supportsDe clines support groupPlan FU in 3 wks Lumbar radiculopathy 128 314958 M54.16 chronic but this feels different and worsewill ck XR and consult w PSSP [id number] Erinn Arvizu RN FP, [facility], [address] [place] [address] 09/24/2023 08:10:35 09/25/2023 11:58:09 Paroxysmal atrial fibrillation 915340680 I48.0 [id number] HARRY Nevarez, [facility], [address] [place] [address] 10/02/2023 09:49:06 10/02/2023 20:24:51 Paroxysmal atrial fibrillation 606518377 I48.0 [id number] HARRY Nevarez, [facility], [address] [place] [address] 10/09/2023 09:30:58 10/10/2023 14:16:18 Paroxysmal atrial fibrillation 677934696 I48.0 [id number] HARRY Nevarez, [facility], [address] [place] [address] 10/16/2023 08:31:20 10/21/2023 13:03:39 Paroxysmal atrial fibrillation 265613796 I48.0 [id number] HARRY Nevarez, [facility], [address] [place] [address] 10/23/2023 10:24:37 10/29/2023 13:36:42 Paroxysmal atrial fibrillation 150839157 I48.0 [id number] HARRY Nevarez, [facility], [address] [place] [address] 10/30/2023 08:57:11 11/03/2023 11:17:13 Paroxysmal atrial fibrillation 178968725 I48.0 [id number] HARRY Nevarez, [facility], [address] [place] [address] 11/06/2023 10:27:00 11/09/2023 12:55:35 Paroxysmal atrial fibrillation 590257493 I48.0 [id number] HARRY Nevarez, [facility], [address] [place] [address] 11/20/2023 13:49:01 11/26/2023 20:54:59 Paroxysmal atrial fibrillation 442933869 I48.0 [id number] HARRY Nevarez, [facility], [address] [place] [address] 11/27/2023 14:29:39 11/27/2023 18:33:23 Paroxysmal atrial fibrillation 166762104 I48.0 Active or passive immunization 105807144 Z23 [id number] HARRY Nevarez, [facility], [address] [place] [address] 12/04/2023 09:32:44 12/09/2023 12:08:44 Paroxysmal atrial fibrillation 205184101 I48.0 [id number] SAMANTHA Agrawal, [facility], [address] [place] [address] 12/11/2023 08:24:28 12/15/2023 10:02:55 Paroxysmal atrial fibrillation 574041721 I48.0 [id number] Marianela Valle LPN [facility], [address] [place] [address] 12/18/2023 08:39:41 12/23/2023 19:00:35 Paroxysmal atrial fibrillation 504495960 I48.0 [id number] HARRY Nevarez, [facility], [address] [place] [address] 12/25/2023 08:58:58 12/29/2023 13:15:48 Paroxysmal atrial fibrillation 390536092 I48.0 [id number] HARRY Nevarez, [facility], [address] [place] [address] 01/01/2024 09:48:44 01/01/2024 11:52:55 Paroxysmal atrial fibrillation 125250948 I48.0 [id number] HARRY Nevarez, [facility], [address] [place] [address] 01/08/2024 09:16:53 01/12/2024 14:24:41 Paroxysmal atrial fibrillation 189877094 I48.0 [id number] Erinn Arvizu RN , [facility], [address] [place] [address] 01/15/2024 08:12:02 01/16/2024 13:50:41 Paroxysmal atrial fibrillation 282350907 I48.0 [id number] HARRY Nevarez, [facility], [address] [place] [address] 01/25/2024 10:20:00 01/26/2024 13:41:10 Paroxysmal atrial fibrillation 105899826 I48.0 [id number] SAMANTHA Agrawal, [facility], [address] [place] [address] 02/01/2024 10:06:35 02/02/2024 12:54:30 Long-term current use of anticoagulant 048143065 Z79.01 [id number] HARRY Nevarez, [facility], [address] [place] [address] 02/05/2024 08:04:52 02/10/2024 15:51:45 Paroxysmal atrial fibrillation 926981834 I48.0 [id number] Marianela Valle LPN , [facility], [address] [place] [address] 02/10/2024 15:05:48 02/15/2024 14:22:30 Paroxysmal atrial fibrillation 891594293 I48.0 [id number] Ana Kaminski MD , [facility], [address] [place] [address] 03/01/2024 10:30:21 03/01/2024 11:55:46 Pain of right knee joint 2910800752 89006 M25.561 using cane. signif pain. would be open to steroid injection if amenable.w ill ck XR and get sports med consult Prostate s pecific antigen above reference range 510211600 R97.20 Wakes 1-2x night to urinate with some obstructiv e sxsPSA is very elevated Long-term current use of anticoagulant 504905463 Z79.01 on coumadin Paroxysmal atrial fibrillation 958237540 I48.0 rate controlled on metoprolol , AC with warfarin.W ill refer for cardiology consult, has not yet seenNo syncope, SOBWhen insur changes, will switch to DOAC (currently too costly) [id number] Marianela Valle LPN , [facility], [address] [place] [address] 03/08/2024 08:51:21 03/10/2024 14:34:36 Paroxysmal atrial fibrillation 583981196 I48.0 Start Xarelto [id number] Sky Meléndez RN , [facility], [address] [place] [address] 03/15/2024 08:11:01 03/15/2024 11:46:14 Paroxysmal atrial fibrillation 485116361 I48.0 Start Xarelto [id number] Toni Hinojosa RN , [facility], [address] [place] [address] 03/25/2024 07:50:43 03/25/2024 10:30:27 Paroxysmal atrial fibrillation 230885869 I48.0 [id number] Erinn Arvizu RN , [facility], [address] [place] [address] 04/01/2024 08:23:18 04/04/2024 14:02:30 Paroxysmal atrial fibrillation [id number] I48.0 [id number] Erinn Arvizu RN , [facility], [address] [place] [address] 04/08/2024 08:10:34 04/08/2024 12:24:27 Paroxysmal atrial fibrillation [id number] I48.0 [id number] Erinn Arvizu RN , [facility], [address] [place] [address] 04/15/2024 08:35:36 04/15/2024 11:14:28 Paroxysmal atrial fibrillation [id number] I48.0 [id number] Marianela Valle LPN [facility], [address] [place] [address] 04/22/2024 10:51:21 04/22/2024 11:12:36 Paroxysmal atrial fibrillation [id number] I48.0 [id number] Toni Hinojosa RN , [facility], [address] [place] [address] 05/06/2024 07:56:29 05/06/2024 12:04:14 Paroxysmal atrial fibrillation [id number] I48.0 [id number] Erinn Arvizu RN , [facility], [address] [place] [address] 05/27/2024 10:08:59 05/30/2024 11:22:28 Paroxysmal atrial fibrillation 626547032 I48.0 [id number] SAUL JAMESON [facility], [address] [place] [address] 06/08/2024 09:14:27 06/09/2024 15:00:52 Long-term current use of anticoagulant 205881889 Z79.01 No abn bleeding or bruising Paroxysmal atrial fibrillation 124153366 I48.0 Chronic atrial fibrillati on managed with Coumadin. No reported palpitatio ns, chest discomfort , fatigue, or shortness of breath. Pulse is irregularl y irregular but HR within acceptable range. INR will be checked to determine if Coumadin dosage needs adjustment . - Check INR to assess Coumadin levels and adjust dosage if necessary- Continue Coumadin therapy- Follow up with cardiologi in June- Follow up w PCP in 6 mos. Retention of urine [id number] R33.9 Recent urinary tract infection treated with antibiotic s. Menon catheter in place due to urinary retention. Expresses discomfort and desire for catheter removal. Urine output is adequate but appears dark. Catheter removal scheduled for this week at [facility]. - Increase water intake- Schedule appointmen t with urologist for catheter management and further evaluation - Provide contact informatio n for Dr. Arguelles, the urologist previously referred to Prostate s pecific antigen above reference range [id number] R97.20 12/12/2020 10.47 ng/ml01/09 8.5 NG/ML02/08 29.38 NG/ML - Refer to urologist for further evaluation (Dr Arguelles [[facility]]) Bereavement [id number] Z63 .4 Experienci ng significan t grief following the recent loss of his , impacting ability to manage medical appointmen ts and daily activities . Declined offer to speak with a therapist at this time. Open to case management support to assist with healthcare management . - Offer case management services to assist with appointmen t scheduling and healthcare management . Will send case. Health Concerns Section Related Observation LastModified by Organization Detai ls LastModified Time None Recorded Concern Status LastModified by Organization Details LastModified Time None Recorded Advance Directives Directive Y: Payers Encounter Date Sequence Insurance Name Policy Number Policy Jean Covered Member ID Jean Member ID Guarantor Name 04/15/2024 1 [place] [employer] Shant Melissa [id number] Shant Melissa 04/15/2024 2 [place] [id number] Shant Melissa [id number] Shant Melissa 04/22/2024 1 [place] [employer] Shant Melissa [id number] Shant Melissa 04/22/2024 2 [place] [id number] Shant Melissa [id number] Shant Melissa 05/06/2024 1 [place] [employer] Rashmi De La Rosa Melissa [id number] Rashmi De La Rosa Melissa 05/06/2024 2 [place] [id number] Rashmi De La Rosa Melissa [id number] Rashmi De La Rosa Melissa 05/27/2024 1 [place] [employer] Rashmi De La Rosa Melissa [id number] Rashmi De La oRsa Melissa 05/27/2024 2 [place] [id number] Rashmi De La Rosa Melissa [id number] Rashmi De La Rosa Melissa 06/08/2024 1 [place]: [facility] GOVERNMENT SERVICES Rashmi De La Rosa Melissa [id number] Rashmi De La Rosa Melissa 06/08/2024 2 [place] [id number] Rashmi De La Rosa Melissa [id number] Rashmi De La Rosa Melissa Notes Date Note Type Note Provider Name and Address Organization Details Recorded Time 06/08/2024 text/html 3 mo follow up A FIB elevated PSA, [facility] ER 05/25 A fibPreviously referred to Dr Lugo but no visit yet. Scheduled for 06/29/[address] Beckham. pAF. On warfarin. Last INR 3.6 on 05/27/24. No holter in chart. No abn bleeding or bruising, chest discomfort, shortness of breath, fatigue, palpitations. Follows w coumadin clinic. Due for INR. DOACs were cost prohibitive. [facility] ED visitNocturnal urinary retention. Was able to urinate during the day. PVR was >600mL. HR was elevated. Given metoprolol. Menon placed and was to follow up w urology. No AGATA. Had UTI and was antibiosed. Elevated PSA12/12/2020 10.47 ng/ml01/09/2021 8.5 NG/ML02/09/2024 29.38 NG/ML Referred to urology (Dr Arguelles [[facility]]) last February but no notes. Currently has Menon in. Draining clear yellow urine. No abdominal pain. He does not know if he has a urology appt but he does have an appt to remove the Menon this week. BereavementDavid is dealing with the recent loss of his , who in August. He describes feeling 'like floating around in a cloud' as she used to manage all medical appointments. His step-daughter is 'flakey' and he cannot rely on her to help him. He misses his deeply, as they were together for fifty years and did everything together. RASHMI Wilson, [employer]-[address], [id number], [facility] 06/08/2024 10:06:35
--- NOTE | 2024-06-15 08:33 | A.OFFVIS_ITS ---
Intake Visit Reasons: Urinary retention/VT Intake Note: Patient is present for urinary retention/vt Urology Medication:none Antibiotic Allergy:none Blood Thinner:apixaban Material Requirements Planning Manager Required: No Allergies No Known Allergies Allergy (Verified 08/12/24 09:39) HPI Comments Details: Andi is a pleasant male. He is seen for the following urologic conditions - urinary retention with UTI Urinary retention with UTI Partial successful voiding trial Six week follow-up [facility] Social History Household Members: Spouse Housing: House Do you presently have visiting nurse or other home services: Yes ([facility]) Patient Tobacco Use Status: Never used Tobacco service: No Review of Systems Const Denies chills and Denies fever(s) Card Reports no additional complaints and Denies syncope Resp Denies cough GI Denies abdominal pain and Denies heartburn Reports as per HPI and Denies change in libido Neuro Denies syncope Psych Denies change in libido Endo Denies change in libido Physical Exam Const General: cooperative, healthy appearing, comfortable and no acute distress Orientation/consciousness: patient oriented x3 HEENT Face and sinus: Yes normal facial exam Mouth: moist mucous membranes Neck Neck: Yes normal visual inspection, Yes full ROM and Yes trachea midline Chest Chest palpation & inspection: normal inspection of the chest Resp Effort & Inspection: normal respiratory effort, able to speak in complete sentences and no respiratory distress GI Inspection: Yes normal to inspection Back/Spine/Pelvis Cervical Spine: normal cervical lordosis Thoracic/Lumbar Spine: thoracic and lumbar spine normal to inspection Skin General skin exam: no rashes or lesions noted Neuro General: patient oriented x3, gait normal, tone normal and moves all extremities Extrem General: Yes normal to inspection and Yes capillary refill normal Office Procedures Bladder/Catheter Procedure Details: Patient presents to office for voiding trial s/p urinary retention episode. 120mls sterile water instilled through catheter, patient tolerated well. Removed 18 fr galindo catheter, patient tolerated removal well. Patient was not able to void. Patient to have appointment with Dr. Arguelles. [id number] of Bladder Procedure code (CPT) selection complete Assessment & Plan Assessment & Plan (1) Urinary retention: Code(s): R33.9 - Retention of urine, unspecified Category: Medical Plan Continue medications Orders: Orders AMB Bladder/Catheter Procedure 06/15/24 R33.8 - Other retention of urine Medications: New terazosin 5 mg PO BEDTIME 30 caps 1RF 30 days R33.9 - Retention of urine, unspecified, N40.1 - Benign prostatic hyperplasia with lower urinary tract symptoms, R35.0 - Frequency of micturition finasteride 5 mg PO DAILY 90 tabs 1RF 90 days R33.9 - Retention of urine, unspecified, N40.1 - Benign prostatic hyperplasia with lower urinary tract symptoms, N13.8 - Other obstructive and reflux uropathy Patient Instructions: This note is constructed using voice recognition software. While every effort has been made to ensure accuracy cobbler mckay errors may have been included. Imaging studies, laboratory and physical exam results were discussed and reviewed in detail. No major barriers to patient understanding were identified. An opportunity to ask questions regarding the treatment plan was provided. All questions were answered. The patient expressed understanding and agreement with the above treatment plan. The patient is aware they should contact our office by phone for worsening of their current condition or the appearance of new urologic symptoms. Compliance is encouraged with any medications and followup testing that is ordered. It is a privilege to participate in the urologic care of your patient. If you have any questions or concerns regarding treatment for the above conditions, or other urologic issues, please do not hesitate to contact me. The office telepho ne contact is [phone]. Sincerely, Dr Blake Arguelles MD, [facility] - Urology Compassionate Specialist Care for the Genitourinary System Coding Level of Care Code New Pt Level 4 (20807) Diagnoses Urinary retention R33.9 CPT Codes Bladder/Catheter Procedure - CPT: 35508-Mdwksvgzxv of Bladder ([id number])
== END 2024-06-15 09:35 | disposition home or self-care (01) ==
PROVIDERS: Visit Provider Urology
DX: R33.9 Retention of urine, unspecified (principal)
CPT/HCPCS: 99204

== ENCOUNTER → 2024-06-15 08:08 | Outpatient (BNVA) | payer MEDICARE, SELFPAY | PROVIDERS: Visit Provider Urology | DX: R33.9 Retention of urine, unspecified (principal) | CPT/HCPCS: 51700; 51702; 99202 ==

== ENCOUNTER → 2024-07-12 08:09 | Outpatient (BNVA) | payer MEDICARE, SELFPAY | PROVIDERS: Visit Provider Urology | DX: R33.9 Retention of urine, unspecified (principal); Z46.6 Encounter for fitting and adjustment of urinary device; Z96.0 Presence of urogenital implants | CPT/HCPCS: 51702 ==

== ENCOUNTER 2024-08-12 09:29 | Outpatient (AMB) | payer MEDICARE, SELFPAY ==
--- NOTE | 2024-08-12 09:36 | MHC.OFFVIS ---
Intake Visit Reasons: cysto/VT Intake Note: Patient is present for Cystoscopy/VT Urology Medication:TERAZOSIN,FINASTERIDE Antibiotic Allergy:NONE Blood Thinner:APIXABAN TODAY'S PVR:139ML'S Lot:[id number] Exp:07/22/26 Ibm Bpm Developer Required: No Allergies No Known Allergies Allergy (Verified 08/12/24 09:39) HPI Comments Details: Andi is a pleasant male. He is seen for the following urologic conditions - BPH with incomplete bladder emptying Here for check cystoscopy Relatively open prostate Able to void following office procedure Continue current medications 2 week follow-up nursing PVR Lower urinary tract symptoms Episode of retention 06/07 emergency room Initial successful voiding trial however failed later that day and catheter replaced Placed on combination therapy finasteride terazosin PFSH Social History Household Members: Spouse Housing: House Do you presently have visiting nurse or other home services: Yes ([facility]) Patient Tobacco Use Status: Never used Tobacco service: No Review of Systems Const Denies chills and Denies fever(s) Card Reports no additional complaints and Denies syncope Resp Denies cough GI Denies abdominal pain and Denies heartburn Reports as per HPI and Denies change in libido Neuro Denies syncope Psych Denies change in libido Endo Denies change in libido Physical Exam Const General: cooperative, healthy appearing, comfortable and no acute distress Orientation/consciousness: patient oriented x3 HEENT Face and sinus: Yes normal facial exam Mouth: moist mucous membranes Neck Neck: Yes normal visual inspection, Yes full ROM and Yes trachea midline Chest Chest palpation & inspection: normal inspection of the chest Resp Effort & Inspection: normal respiratory effort, able to speak in complete sentences and no respiratory distress GI Inspection: Yes normal to inspection Back/Spine/Pelvis Cervical Spine: normal cervical lordosis Thoracic/Lumbar Spine: thoracic and lumbar spine normal to inspection Skin General skin exam: no rashes or lesions noted Neuro General: patient oriented x3, gait normal, tone normal and moves all extremities Extrem General: Yes normal to inspection and Yes capillary refill normal Office Procedures Cystoscopy Consent Discussed risk and benefit or proposed procedure with the patient. Information consent for procedure given to the patient. Discussed technical aspects, risks, benefits and alternatives in full. Addressed all of the patient's questions and concerns regarding the procedure. The patient demonstrated knowledge and understanding. They wish to proceed with this procedure. Preparation The patient was prepped in the usual manner. A psychology assistant was present and in the room. Genitalia was prepped with betadine solution in a sterile manner. Lidocaine Jelly 2% was placed into the urethra and 16Fr flexible Olympus cystoscope was inserted into the meatus after adequate lubrication. Procedure Cystoscopy performed using a disposable Urovue digital 16 Serbian cystoscope. Meatus circumcised Urethra anterior and posterior urethra normal Prostatic Urethra unremarkable - mild enlargement Bladder examination with retroflexion of cystoscope Bladder Orifices normal shape and position Bladder Capacity Normal Trabeculations grade 2 Cellule Formation small Diverticulum Formation None Mucosal Erythema None Bladder Tumor None 49972-[id number] DISPOSABLE SCOPE URO-G FLEXIBLE SCOPE Procedure code (CPT) selection complete Post Void Residual Post Residual Void Post Void Residual (PVR): 139 08735-Ptcb Void Residual by ultrasound Office Meds lidocaine HCl 2 % mucosal jelly in applicator Performing Provider: Blake Arguelles MD Performing [place] [facility] Administered by: Azar Cardona LPN on 08/12/24 10:36 Dose Route Admin Location Dispensed Lot Number Expiration Date NDC Waterproofing Mixer 10 mL intra-urethral 10 mL nitrofurantoin monohydrate/macrocrystals 100 mg capsule Performing Provider: Blake Arguelles MD Performing Location: [facility] Administered by: Azar Cardona LPN on 08/12/24 10:36 Dose Route Admin Location Dispensed Lot Number Expiration Date NDC Waterproofing Mixer 100 mg PO 1 cap Assessment & Plan Assessment & Plan (1) Urinary retention: Code(s): R33.9 - Retention of urine, unspecified Category: Medical Plan Continue current medications 2 week follow-up check PVR nursing Orders: Orders AMB Cystoscopy 08/12/24 R33.9 - Retention of urine, unspecified Patient Instructions: This note is constructed using voice recognition software. While every effort has been made to ensure accuracy gerentological physiotherapist errors may have been included. Imaging studies, laboratory and physical exam results were discussed and reviewed in detail. No major barriers to patient understanding were identified. An opportunity to ask questions regarding the treatment plan was provided. All questions were answered. The patient expressed understanding and agreement with the above treatment plan. The patient is aware they should contact our office by phone for worsening of their current condition or the appearance of new urologic symptoms. Compliance is encouraged with any medications and followup testing that is ordered. It is a privilege to participate in the urologic care of your patient. If you have any questions or concerns regarding treatment for the above conditions, or other urologic issues, please do not hesitate to contact me. The office telephone contact is [phone]. Sincerely, Dr Blake Arguelles MD, [facility] - Urology Compassionate Specialist Care for the Genitourinary System Coding Level of Care Code Est Pt Level 4 (74737) Diagnoses Urinary retention R33.9 CPT Codes Cystoscopy - CPT: 25338-Hfezzrcosg ([id number]) Post Residual Void - PVR CPT Code: 04732-Hpkr Void Residual by ultrasound ([id number])
--- OUTSIDE RECORDS SUMMARY | 2024-08-12 09:49 | XMS_ITS | Data Portability ---
Author Organization [facility], , [facility] Address [address] [place] [address] Care Team Providers Care Hydraulic Press Tender Name Role Phone DEANGELO RAMEY Food Broker FARIBA ARRIAZA Supply Chain Project Manager [facility] Supply Chain Project Manager BENITA RANDHAWA Primary Care Provider [phone] ARELY ARGUELLES OTHER Assessment Encounter Date Assessment Date Assessment LastModified by Organization Details LastModified Time 07/05/2024 07/05/2024 X-rays of the right knee were independently interpreted demonstrating no mason-prothetic fracture. No signs of loosening Not available 07/05/2024 08:51:04 Plan of Treatment Reminders Order Date Submit Date Provider Last Modified By Organization Details Last Modified Time Details Appointments Treatmen t Nurse 20 2024 03:00P M FP TREATMENT NURSE [facility] Not available Not available Not available Medical Manageme nt 30 2024 10:30A M EMILY RANDHAWA NP Not available Not available Not available Lab INR, blood 2024 025 [facility], [address] [place] [address], [address], 07/29/2024 16:03:18 INR, blood 2024 025 [facility], [address] [place] [address], [id number], 07/28/2024 10:36:03 INR, blood [address] [facility], [address] [place], [address], 07/19/2024 12:03:44 INR, blood 2024 025 [email or web address] [facility], [address] [place], [address], 07/08/2024 11:38:44 Referral physical therapis t referral - Right knee instabil ity in setting of TKAHip and Core Strength eningImp rove balance and gaitImpr ove ant/post chain strength Improve knee stabilit yHEP 2024 025 [email or web address] 67 [facility], [address], [place], [address], 07/26/2024 12:35:26 Procedures None recorded . Surgeries None recorded . Imaging None recorded . Medication Orders None recorded . Patient TargetsNo targets recorded. Patient Instructions Encounter Date Encounter Id Patient Instructions Last Modified By Organization Details Last Modified Time 07/05/2024 [id number] Go to physical therapy Follow-up in 12 weeks if symptoms are not improving Not available 07/05/2024 08:52:49 All of the patients questions were answered and they understand the plan of care. Thank you for allowing me to participate in the care of your patient. Please feel free to contact me with any questions regarding their care. Not available 07/05/2024 08:53:45 Reason for Referral Physical Therapist Referral for Pain of right knee region Right knee instability in setting of TKAHip and Core StrengtheningImprove balance and gaitImprove ant/post chain strengthImprove knee stabilityHEP Referring Physician: German Mendoza, Sports Medicine, Encounter Date: 07/05/2024 Results Created Date Observation Date Name Description Value Unit Range Abnormal Flag Note LastModifiedBy Organization Detail LastModifiedTime 06/09/1906/08/2024 POC INR INR POC 2.0 INR 0.9 - 1.1 high Not Available [facility] [address] [place], [address], 06/08/2024 15:45:07 06/18/1906/17/2024 POC INR INR POC 1.8 INR 0.9 - 1.1 high Not Available [facility] [address] [place], [address], 06/17/2024 09:26:10 06/25/1906/24/2024 POC INR INR POC 1.6 INR 0.9 - 1.1 high Not Available [facility] [address] [place], [address], 06/24/2024 09:15:19 07/02/1907/01/2024 POC INR INR POC 2.2 INR 0.9 - 1.1 high Not Available [facility] [address] [place], [address], 07/01/2024 10:06:04 07/09/19 25 07/08/2024 POC INR INR POC 1.8 INR 0.9 - 1.1 high Not Available [facility] [address] [place], [address], 07/08/2024 11:05:02 07/16/19 25 07/15/2024 POC INR INR POC 1.9 INR 0.9 - 1.1 high Not Available [facility] [address] [place], [address], 07/15/2024 14:48:08 07/22/19 25 07/21/2024 POC INR INR POC 2.1 INR 0.9 - 1.1 high Not Available [facility] [address] [place], [address], 07/28/2024 10:36:03 07/30/19 25 07/29/2024 POC INR INR POC 2.8 INR 0.9 - 1.1 high Not Available [facility] [address] [place], [address], 07/29/2024 16:03:18 Result Notes None recorded. 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 SAMANTHA Springer, [facility] 1 10:53:12 Lumbago with sciatica 470467432 Active 2020 Laine verma PA-C [address] [place] [address], , [facility] 1 08:42:48 Obesity 471243390 Active 2020 BMI = 37 after wt loss past 2 yrs. Previous morbid obesity. sylvia Camp RD, LDN [address] [place] [address], [address] , [facility] 1 09:12:16 Intermit tent claudica tion 58785785 Active 2022 Laine verma PA-C [address] [place] [address], , [facility] 3 18:37:28 Paroxysm al atrial fibrilla tion 297435878 Active 2023 Laine verma PA-C [address] [place] [address], , [facility] 4 16:03:57 Long-ter m current use of anticoag ulant 697156072 Active 2023 Laine verma PA-C [address] [place] [address], , [facility] 4 16:23:31 Retentio n of urine 158328658 Active 2024 RASHMI PALACIOS [address], , [facility] 5 05:51:56 Prostate specific antigen above referenc e range 762838888 Active 2024 RASHMI PALACIOS [address], , [facility] 5 05:52:15 Mixed hyperlip idemia 587752477 Active 2003 Rashmi Enriquez MD [address] [place] [address], , [facility] 6 09:02:32 Headache 18115341 Completed 200603/05/2011 Rashmi Enriquez MD [address] [place] [address], , [facility] 6 14:23:02 Cough 49498061 Completed 200703/05/2011 Rashmi Enriquez MD [address] [place] [address], , [facility] 6 14:23:02 Osteoart hritis of knee 197749637 Completed 200312/18/2013 Rashmi Enriquez MD [address] [place] [address], , [facility] 6 14:23:01 Actinic keratosi s 390339147 Completed 200303/05/2011 Rashmi Enriquez MD [address] [place] [address], , [facility] 6 14:23:01 Pure hypercho lesterol emia 214495791 Completed 200303/05/2011 Rashmi Enriquez MD [address] [place] [address], , [facility] 6 14:23:01 Urticari a 734726314 Completed 03/05/2011 Rashmi Enriquez MD [address] [place] [address], [address] , [facility] 6 14:23:01 Localize d, primary osteoart hritis 875499279 Completed 200312/18/2013 Rashmi Enriquez MD [address] [place] [address], [address] , [facility] 6 14:23:01 Breathin g painful 27974098 Completed 200003/05/2011 Rashmi Enriquez MD [address] [place] [address], [address] , [facility] 6 14:23:02 Pneumoni a 477977582 Completed 200703/05/2011 Rashmi Enriquez MD [address] [place] [address], , [facility] 6 14:23:01 Knee pain Completed 200308/31/2012 Rashmi Enriquez MD [address] [place] [address], , [facility] 6 14:23:02 Verruca vulgaris 88964961 Completed 200303/05/2011 Rashmi Enriquez MD [address] [place] [address], , [facility] 6 14:23:01 Chest pain 50449314 Completed 200503/05/2011 Rashmi Enriquez MD [address] [place] [address], , [facility] 6 14:23:02 Dysphagi a 81292879 Completed 200503/05/2011 Rashmi Enriquez MD [address] [place] [address], [address] , [facility] 6 14:23:02 Hyperlip idemia 40626937 Completed 200203/05/2011 Rashmi Enriquez MD [address] [place] [address], [address] , [facility] 6 14:23:01 Generali zed osteoart hritis 911514393 Active 2004 Knees Rashmi Enriquez MD [address] [place] [address], [address] , [facility] 6 09:02:32 Low back pain 784642304 Active 2005 Rashmi Enriqeuz MD [address] [place] [address], [address] , [facility] 6 09:02:32 Current tear of medial cartilag e AND/OR meniscus of knee Completed 199908/31/2012 Rashmi Enriquez MD [address] [place] [address], [address] , [facility] 6 14:23:02 Problem Notes None recorded. Procedures Surgical History Date Name Laterality Status Provider Name and Address Organization Details Recorded Time 09/08/19 24 [id number] completed Laine castelan PA-C [address] [place] [address], [phone], [facility] 09/08/2023 11:56:13 09/08/19 24 Coumadin Teaching completed Susy Jade LPN [facility] 09/08/2023 12:32:36 04/28/19 24 Medicare Wellness Visit cancelled Sowmya Teague MA [facility] 04/28/2023 10:40:16 10/22/19 23 Medicare Wellness Visit cancelled Rosana Bender MA [facility] 10/21/2022 08:46:56 10/17/19 22 Medicare Wellness Visit completed Rosana Bender MA [facility] 10/16/2021 08:17:13 10/17/19 22 Alcohol use screening completed Rosana Bender MA [facility] 10/16/2021 08:17:13 10/17/19 22 Cardiovascular disease risk reduction counseling completed Rosana Bender MA [facility] 10/16/2021 08:17:13 10/09/19 21 Medicare Wellness Visit completed KEY Collier [facility] 10/08/2020 08:38:47 10/09/19 21 prevention-cardiov ascular risk reduction counseling completed KEY Collier [facility] 10/08/2020 08:38:47 10/09/19 21 prevention-annual alcohol misuse screening completed Joseph Lundy [facility] 10/08/2020 08:38:47 08/22/19 21 61265: Therapeutic Exercise completed Santo Bueno, PT [address] [place], [address], [facility] 08/21/2020 11:57:35 08/22/19 21 Treatment and Advice completed Santo Bueno, PT [address] [place], [address], [facility] 08/21/2020 11:38:28 07/18/19 21 Physical Activity Counselling completed Santo Bueno, PT [address] [place], [address], [facility] 07/17/2020 12:34:42 07/18/19 21 18762: PT Eval Low Complexity completed Santo Bueno, PT [address] [place], [address], [facility] 07/17/2020 12:34:42 07/18/19 21 Treatment and Advice completed Santo Bueno, PT [address] [place], [address], [facility] 07/17/2020 13:01:03 09/14/19 19 Medicare Wellness Visit completed Jaz Payne [facility] 09/13/2018 08:53:02 01/28/20 17 Medicare Wellness Visit completed Malissa Tan [facility] 01/27/2017 14:42:42 03/16/19 17 extraction of cataract completed Laine castelan PA-C [address] [place], [address], [facility] 10/08/2020 09:54:47 06/28/19 16 Medicare Wellness Visit completed Jessica Chery MA [facility] 06/28/2015 14:02:30 06/28/19 16 Seborrheic Keratosis completed Rashmi Enriquez MD [address] [place] [address], [address], [facility] 06/29/2015 09:00:32 03/22/19 15 <strong>Pain</stro ng> Assessment and Follow-up (G8730) completed Santo Bueno, PT [address] [place], [address], [facility] 03/22/2014 14:36:00 03/22/19 15 <strong>Falls</str jennie> Risk Assessment - No Risk (1101F) completed Santo Bueno, PT [address] [place], [address], [facility] 03/22/2014 14:36:00 03/22/19 15 <strong>Functional </strong> Outcome w/ POC (G8539) completed Santo Bueno, PT [address] [place], [address], [facility] 03/22/2014 14:36:00 03/22/19 15 <strong>BMI</stron g> Documented Outside Normal Parameters, no Follow-up Documented, Reason not Given (G8419) completed Santo Bueno, PT [address] [place], [address], [facility] 03/23/2014 20:32:01 03/22/19 15 Current <strong>Medication s</strong> Documented (G8427) completed Santo Bueno, PT [address] [place], [address], [facility] 03/22/2014 14:36:00 03/22/19 15 54243: PT Evaluation completed Santo Bueno, PT [address] [place], [address], [facility] 03/22/2014 14:36:00 03/22/19 15 Treatment and Advice completed Santo Bueno, PT [address] [place], [address], [facility] 03/22/2014 14:30:47 12/02/19 14 Medicare Wellness Visit completed Jessica Chery MA [facility] 12/01/2013 10:33:38 09/01/19 13 Medicare Wellness Visit completed Rebeca Sanchez MA [facility] 08/31/2012 09:17:14 03/05/20 11 Medicare Wellness Visit completed Catalino Tang MA [facility] 03/05/2011 15:21:21 total knee replacement completed Laine castelan PA-C [address] [place], [address], [facility] 10/08/2020 09:29:32 Imaging Results None recorded. Procedure Notes None recorded. Medical Equipment None Reported. Allergies Allergen ID Allergen Name Allergen Category Reaction Reaction Severity Criticality Documentation Date Start Date Code Code System Note Provider Name and Address Organization Details Recorded Time 291248 atorvasta tin medicatio n myalgias (muscle pain) moderate low 11/13/20212019 81630 RxNorm Laine bonilla PA-C [address] [place] [address], [address], [facility] 09:26:52 Medications Name Sig Start Date Stop Date Status Note LastModified by Organization Details LastModified Time pravastat in tab 40mg active Not Available Not Available Not Available terazosin 5 mg capsule TAKE 1 CAPSULE BY MOUTH EVERYDAY AT BEDTIME active Not Available Not Available No t Available tizanidin e 2 mg tablet Take 1 tablet every 6 hours by oral route as needed. 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 2024 active Not Available Not Available Not Avai lable Vitamin D3 active 500mg daily Not Available [...] Not Available Vitals Date Recorded Body height Provider Name an d Address Organization Details Last Updated DateTime 07/05/2024 180.34 cm Bridgett Driver [facility] 07/05/2024 08:36:11 Social History Question Answer Notes LastModified by Organizat ion Details LastModified Time Tobacco Smoking Status Never Smoker Not Available [facility] 01/30/2011 04:53:49 Do You Have An Advance Directive? Yes Information not available 07/28/2011 Do You Wear A Helmet When Biking? [...] Used? None spise Information not available 05/25/2018 Have There Been Any Changes To Your Family Or Social Situation? Yes Information not available 10/16/2021 How Many Days In The Past Year Have You Had A Heavy Drinking Consumption (4+ Female, 5+ Male)? 0 [email or web address] Information not available 09/13/2018 Are There Any Guns Present In Your Home? No Information not available 07/28/2011 Do You Use Insect Repellent Routinely? Yes [email or web address] Information not available 10/08/2020 Live Alone Or With Others? With Others Information not available 07/28/2011 CSRP - Narcotics No Informat ion not available 07/28/2011 CSRP Contract Signed And Discussed No Information not available 07/28/2011 Patient Has Health Care Proxy Signed And In Chart No [phone] Information not available 11/26/2017 CSRP - Stimulants No Information not available 03/20/2014 CSRP - Suboxone No Informati on not available 06/28/2015 CCM Consent Discussion 10/16/2021 [email or web address] Information not available 10/29/2021 Marital Status Information not available 01/30/2011 Mosquito Repellent Used Routinely Yes Information not available 03/05/2011 What Was The Date Of Your Most Recent Tobacco Screening? 06/08/2024 [email or web address] Information not available 06/08/2024 How Many Children [...] Carbon Monoxide Detectors In Your Home? Yes [email or web address] Information not available 10/08/2020 Are You Passively Exposed To Smoke? No [email or web address] Information not available 10/08/2020 How Much Tobacco Do You Smoke? No Information not available 06/28/2015 General Stress Level Medium Information not available 07/28/2011 Do You Use Sunscreen Routinely? Yes Information not available 03/05/2011 Sex: Male Functional Status Question Answer Note LastModified by Organizat ion Details LastModified Time Do you use any illicit or recreational drugs? No [email or web address] Information not available 10/08/2020 Do you or have you ever used any other forms of tobacco or nicotine? No [email or web address] Information not available 09/04/2022 What is your level of alcohol consumption? Moderate 2x week few beers [email or web address] Information not available 09/07/2017 Do you or have you ever used smokeless tobacco? 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 Never used electronic cigarettes [email or web address] Information not available 04/15/2019 What is your exercise level? None Information [...] virus, trivalent, preservative 1 completed Not Available [facility] 04/02/2019 02:18:11 Influenza, split virus, trivalent, preservative 9 completed Not Available [facility] 04/02/2019 02:29:23 Tdap 7 completed Not Available [facility] 01/29/2011 05:21:55 Influenza, split virus, trivalent, preservative 2 completed Not Available [facility] 04/02/2019 02:18:34 Influenza, split virus, trivalent, PF 3 completed Not Available [facility] 04/02/2019 02:26:35 Influenza, high-dose, trivalent, PF 4 completed Not Available [facility] 04/02/2019 02:19:19 Influenza, high-dose, trivalent, PF 5 completed Not Available [facility] 04/02/2019 02:29:57 Td (adult), 2 Lf tetanus toxoid, preservative free, adsorbed 6 completed Not Available [facility] 04/02/2019 02:20:36 Pneumococcal conjugate PCV 13 6 completed Not Available [facility] 04/02/2019 02:39:42 Influenza, high-dose, trivalent, PF 6 completed Not Available [facility] 04/02/2019 02:21:05 Influenza, high-dose, trivalent, PF 7 completed Not Available [facility] 04/02/2019 02:22:02 Influenza, high-dose, trivalent, PF 9 completed Not Available [facility] 04/02/2019 02:34:18 pneumococcal polysaccharide PPV23 0 completed Not Available [facility] 04/02/2019 02:34:19 Influenza, high-dose, trivalent, PF 9 completed Not Available [facility] 04/02/2019 02:24:36 COVID-19, mRNA, LNP-S, PF, 100 mcg/0.5mL dose or 50 mcg/0.25mL dose 1 completed SAMANTHA Agrawal, [facility] 04/21/2020 10:49:38 COVID-19, mRNA, LNP-S, PF, 100 mcg/0.5mL dose or 50 mcg/0.25mL dose 1 [facility] 11:00:30 Influenza, high-dose, quadrivalent, PF 1 completed [facility]12[facility] 14:50:45 Influenza, high-dose, quadrivalent, PF 2 completed SAMANTHA Julien, [facility] 01/17/2022 11:53:53 COVID-19, mRNA, LNP-S, PF, 100 mcg/0.5mL dose or 50 mcg/0.25mL dose 2 completed [facility] 04/04/2021 14:18:45 influenza, unspecified formulation 0 completed Not Available [facility] 01/29/2011 05:20:34 Past Encounters Encounter ID Performer Location Encounter Start Date Encounter Closed Date Diagnosis/Indication Diagnosis SNOMED-CT Code Diagnosis ICD10 Code Diagnosis Note [id number] Namrata rogers, PT Physical Therapy, [address] [address] 01/21/2000 12:00:00 04/05/2008 02:02:29 [id number] [facility], [facility], [address] [place] [address] 02/27/2000 15:05:00 04/05/2008 02:02:29 [id number] Rashmi Enriquez MD , [facility], [address] [place] [address] 07/14/2000 10:45:00 04/05/2008 02:02:29 [id number] [facility] - [address] [address] 08/30/2001 10:21:58 04/05/2008 02:02:29 [id number] Rashmi Enriquez MD , [facility], [address] [place] [address] 03/31/2002 09:50:47 04/05/2008 02:02:29 [id number] [facility] - [address] [address] 03/31/2002 10:52:19 04/05/2008 02:02:29 [id number] [facility] - [address] [address] 04/11/2002 10:26:12 04/05/2008 02:02:29 [id number] [facility] - [address] [address] 04/11/2002 16:52:35 04/05/2008 02:02:29 [id number] Rashmi Enriquez MD , [facility], [address] [place] [address] 04/17/2003 13:18:23 04/18/2003 08:07:13 [id number] [facility] - [address] [address] 05/03/2003 07:45:50 05/03/2003 07:46:02 [id number] Rashmi Enriquez MD , [facility], [address] [place] [address] 05/18/2003 10:21:30 05/18/2003 17:16:53 [id number] [facility] - [address] [address] 06/01/2003 07:35:06 06/01/2003 09:23:00 [id number] Rashmi Enriquez MD , [facility], [address] [place] [address] 08/23/2003 14:45:36 08/24/2003 11:18:14 [id number] [facility] - [address] [address] 10/05/2003 07:41:44 10/05/2003 11:05:38 [id number] [facility] - [address] [address] 01/04/2004 08:05:29 01/04/2004 08:05:33 [id number] Rashmi Enriquez MD , [facility], [address] [place] [address] 01/19/2004 15:45:52 01/20/2004 10:47:55 [id number] Rashmi Enriquez MD , [facility], [address] [place] [address] 03/27/2004 11:11:01 03/28/2004 08:51:20 [id number] [facility] - [address] [address] 03/27/2004 12:02:21 03/27/2004 12:02:37 [id number] Rashmi Enriquez MD , [facility], [address] [place] [address] 07/04/2004 08:34:38 07/04/2004 09:42:37 [id number] [facility] - [address] [address] 09/25/2004 08:16:46 09/25/2004 08:16:51 [id number] Susy Castañeda NP , [facility], [address] [place] [address] 02/25/2005 08:14:30 04/05/2008 02:02:29 [id number] [facility] - [address] [address] 03/31/2005 08:58:25 03/31/2005 08:58:51 [id number] Rashmi Enriquez MD , [facility], [address] [place] [address] 06/11/2005 16:02:27 04/05/2008 02:02:29 [id number] Rashmi Enriquez MD , [facility], [address] [place] [address] 11/24/2005 11:53:53 04/05/2008 02:02:29 [id number] [facility] RAD[facility] Technolog[facility] Radiology , [facility] [address] [place] [address] 11/24/2005 12:28:01 04/05/2008 02:02:29 [id number] [facility] - [address] [address] 03/17/2006 07:57:48 03/17/2006 07:57:54 [id number] Rashmi Enriquez MD , [facility] [address] [place] [address] 04/16/2006 10:46:07 04/17/2006 08:24:07 [id number] Rashmi Enriquez MD , [facility], [address] [place] [address] 10/02/2006 13:42:46 10/05/2006 08:33:57 [id number] Rashmi Enriquez MD , [facility], [address] [place] [address] 02/08/2007 14:23:15 04/05/2008 02:02:29 [id number] [facility] - [address] [address] 6 02/18/2007 09:35:43 02/18/2007 09:35:48 [id number] Rashmi Enriquez MD , [facility], [address] [place] [address] 06/15/2007 08:48:22 04/05/2008 02:02:29 [id number] [facility] , [address] [address] 06/15/2007 10:24:30 06/16/2007 09:35:30 [id number] [facility] , [address] [address] 6 06/15/2007 00:00:00 04/05/2008 02:02:29 [id number] [facility] - [address] [address] 6 01/25/2008 08:47:36 01/25/2008 08:47:45 [id number] Rashmi Enriquez MD , [facility], [address] [place] [address] 6 08/02/2008 07:52:52 08/17/2008 11:35:48 [id number] Rashmi Enriquez MD , [facility], [address] [place] [address] 12/15/2008 16:27:47 12/18/2008 11:25:06 [id number] [facility] - [facility] [address] [place] [address] 08/02/2008 09:10:43 08/02/2008 09:10:51 [id number] Rashmi Enriquez MD , [facility], [address] [place] [address] 10/30/2009 08:02:17 11/01/2009 12:20:23 [id number] [facility] , [facility] [address] [place] [address] 11/20/2010 07:14:13 11/20/2010 09:03:41 [id number] MD ABDULAZIZ Crespo, [facility], [address] [place] [address] 6 03/05/2011 14:45:50 03/05/2011 16:06:36 [id number] Rashmi Enriquez MD , [facility], [address] [place] [address] 07/28/2011 08:31:25 07/29/2011 14:53:57 [id number] [facility] , [facility] [address] [place] [address] 6 11/19/2011 06:27:00 11/19/2011 08:57:52 [id number] Rashmi Enriquez MD , [facility], [address] [place] [address] 6 04/21/2012 09:14:44 04/21/2012 10:15:01 [id number] Rashmi Enriquez MD , [facility], [address] [place] [address] 6 08/31/2012 09:07:06 08/31/2012 11:22:00 [id number] MD ABDULAZIZ Crespo, [facility], [address] [place] [address] 6 12/01/2012 06:20:26 12/01/2012 16:00:57 Influenza vaccine needed [id number] [id number] Rashmi Enriquez MD , [facility], [address] [place] [address] 04/14/2013 09:00:27 04/14/2013 09:46:35 Chest wall pain 209785430 Morbid obesity 458249991 Actinic keratosis 493216589 [id number] Rashmi Enriquez MD , [facility], [address] [place] [address] 12/01/2013 07:45:53 12/01/2013 11:05:29 Adult health examination 022693765 see Risk Assessment and Lifestyle Change Counseling section above Counseling 240765985 Mixed hyperlipidemia 557173136 Cholestero l is at goal Continue to work on diet and exercise as discussed Generalize d osteoarthritis 730369823 Morbid obesity 955344586 Fatigue 69689738 [id number] Lucia Foster NP , [facility], [address] [place] [address] 01/11/2014 06:16:13 01/11/2014 10:51:44 Influenza vaccine needed 2574579788 809 [id number] Rashmi Enriquez MD , [facility] [address] [place] [address] 03/20/2014 09:12:16 03/22/2014 15:47:29 Generalized osteoarthritis 552598608 [id number] Santo Bueno , PT Physical Therapy, [facility] [address] [place] [address] 03/22/2014 13:31:17 03/24/2014 07:33:36 Pain of hip region 39977202 [id number] Rashmi Enriquez MD , [facility], [address] [place] [address] 12/19/2014 08:55:01 12/19/2014 11:56:45 Influenza vaccine needed 9747487339 106 Z28.3 [id number] Rashmi Enriquez MD , [facility], [address] [place] [address] 06/28/2015 13:43:23 07/02/2015 09:50:54 Mixed hyperlipidemia 472125922 E78.2 Adult [facility] th examination 037327253 Z00.00 see Risk Assessment and Lifestyle Change Counseling section above Counseling 251112494 Z71 .9 Active or passive immunization 108432009 Z23 Generalize d osteoarthritis 986533196 M15.9 Morbid obesity 960029805 E66.01 Low back pain 963095106 M54.5 [id number] Rashmi Enriquez MD , [facility], [address] [place] [address] 01/10/2016 10:51:33 01/11/2016 14:11:25 Active or passive immunization 053990098 Z23 Mixed hyperlipidemia 267 876916 E78.2 Chest pain 70885279 R07. 9 [id number] Rashmi Enriquez MD , [facility], [address] [place] [address] 02/15/2016 09:24:09 02/15/2016 10:08:43 Mixed hyperlipidemia 634121937 E78.2 [id number] Josh Langford MD , [facility], [address] [place] [address] 12/05/2016 06:48:51 12/08/2016 12:07:05 Active or passive immunization 384996297 Z23 [id number] Rashmi Enriquez MD , [facility], [address] [place] [address] 01/27/2017 14:35:24 01/27/2017 15:38:09 Adult health examination 255758989 Z00.00 see Risk Assessment and Lifestyle Change Counseling section above Counseling 472644110 Z71 .9 Generalize d osteoarthritis 202684677 M15.9 Mixed hyperlipidemia 267 984885 E78.2 Low back pain 307145481 M54.5 [id number] Rashmi Enriquez MD , [facility], [address] [place] [address] 09/07/2017 09:18:53 09/07/2017 09:48:31 Bilateral cataracts 51655849 H26.9 Preoperati ve cardiovascular examination 233637927 Z01.240 [id number] Rashmi Enriquez MD , [facility], [address] [place] [address] 05/25/2018 14:43:56 05/27/2018 11:34:19 Backache 063825179 M54.9 Active or passive immunization 903703567 Z23 Low back pain 936983805 M54.5 [id number] Lucia Foster NP , [facility], [address] [place] [address] 08/06/2018 15:02:35 08/10/2018 10:49:13 Low back pain 373444914 M54.5 Will call patient with radiology report - meanwhile back precaution s. Consider PSSP referral [id number] Rashmi Enriquez MD , [facility], [address] [place] [address] 09/13/2018 08:50:24 09/13/2018 09:33:41 Adult health examination 859935358 Z00.00 see Risk Assessment and Lifestyle Change Counseling section above Counseling 902986924 Z71 .9 Depression screening 171 726806 Z13.89 depression screening tool administer ed, entered into emr Generalize d osteoarthritis 524902987 M15.9 Mixed hyperlipidemia 267 840036 E78.2 Actinic keratosis 000531 007 L57.0 Intermitte nt claudication 93260396 I73.9 Neuropathy 220145988 G62 .9 [id number] Rashmi Enriquez MD , [facility], [address] [place] [address] 12/07/2018 14:48:59 12/07/2018 15:23:30 Active or passive immunization 196182831 Z23 [id number] Josh Langford MD , [facility], [address] [place] [address] 04/15/2019 17:19:25 04/19/2019 10:30:04 Hiccough present 630967933 R06.6 Has been having hiccoughs for 3 [...] ER. Pt and comf with this plan [id number] Gloria Grimes DO , [facility], [address] [place] [address] 07/16/2020 12:22:43 07/17/2020 16:32:52 Backache 713412310 M54.9 Advised to take 600mg every 6 hours to help with inflammati on and pain, advised to use heat for 15min every 2 hours to help relax the muscles. Referred to PT. Call with new/worsen ing symptoms or if no improvemen t. Pt agrees with plan. Right side sciatica 3202 287109 41156 M54.31 Advised to take 600mg every 6 hours to help with inflammati on and pain, advised to use heat for 15min every 2 hours to help relax the muscles, and soak in 2 cups epsom salt bath 1x daily for 20min to help with muscle relaxation . Call with new/worsen ing symptoms or if no improvecindi rehman Pt agrees with plan. [id number] Santo Bueno PT Physical Therapy, [address] [address] 07/17/2020 12:11:21 07/19/2020 13:34:34 Low back pain 434726480 M54.5 74 year old male with signs and symptoms consistent with acute vice president medical affairs alcides recurr ent acute on chronic low back and hip pain with mobility deficits. Patient has significan t functional limitation in their activities of daily living and recreation . Skilled physical therapy is needed to safely [...] demands. Treatment Plan: Patient to return for 8 visits over 12 weeks. We expect significan t change in pain, impairment and function in this time frame. Treatment to Include: therapeuti c exercise and manual therapy [id number] Santo Bueno PT Physical Therapy, [address] [address] 08/21/2020 11:03:54 08/21/2020 17:24:08 Low back pain 074161697 M54.5 Patient Goals: Able to sleep through [...] demands.(0 08/21/2020) his goals have been met. [id number] Josh Langford MD , [facility], [address] [place] [address] 10/08/2020 08:49:30 10/08/2020 10:25:40 Adult health examination 346772083 Z00.00 Encouraged routine exercise & well rounded dietSees Dentist/Op tometrist routinely- colonoscop y UTD-is considerin g Shingrix, other vaccines are UTD-10 yr ASCVD risk- 26%, recommende d starting statin and baby ASA-Encour aged completion of ACP/HCP/MO LST Forms/ discuss w. family Counseling 466784342 Z71 .9 including cardiovasc ular risk reduction counseling -10 yr ASCVD risk- 26%, recommende d starting statin and baby ASA Depression screening 171 569192 Z13.31 depression screening tool administer ed, entered into emr, scored and discussed, time greater than 7.5 minutesneg Screening for alcohol abuse 364264283 Z13.39 Morbid obesity 538900458 E66.01 has lost 30-40 lbs in past 5 yrsexercis e limited due to OAdiscusse d dietary changes Hypercholesterolemia 136 20912 E78.00 to start statinascv d risk 26%.LDL 129 Benign pro static hyperplasia with outflow obstruction 765896543 N40.1 Wakes once per night to urinate, mild hesistancy , no split stream , has urgency and frequency during the day. Progressiv josemanuel worse over the years.Will start trial of meds; take qs and monitor for dizziness. Right side sciatica 3202 929422 08094 M54.31 recent inc in symptoms.p lans to give it some timewill enc PT if persists. Intermitte nt claudication 94568499 I73.9 borderline ABIs in 2019 with mild plaque buildup.sx s remain stable, no change.sta rt ASA , as above.no need for surgical interventi on at this time. [id number] MD ABDULAZIZ Mora, [facility], [address] [place] [address] 10/19/2020 15:11:25 11/20/2020 15:07:10 Increased frequency of urination 551570652 R35.0 labs ordered.Ul trasound showed PVR of 21 mLWill get eval by Urol as sxs are relative sudden onset Microscopic hematuria 19 7202409 R31.29 Simple renal cyst 306942 09 N28.1 6.7 cm simple cyst/benig n, reassuranc e Right side sciatica 3202 950000 06392 M54.31 recent inc in symptoms.p lans to give it some timewill enc PT if persists. has had steroid injections in the past, not too helpful Mixed hyperlipidemia 267 444303 E78.2 is starting statin rpt lipids in 3mo [id number] Josh Langford MD , [facility], [address] [place] [address] 12/12/2020 14:27:04 12/12/2020 15:32:15 Active or passive immunization 906935027 Z23 Myalgia/my ositis - multiple 304949951 M79.10 Just started statin a few wks ago? statin related?St op atorvastat in, will ck labs Pain of mu ltiple joints 17736130 M25.50 pt requesting screen for Lyme/ tick borne illness Low back pain 541238712 M54.5 R sciatica flare more severe this episodeSxs persist, less severe but has not resolved.P refers no further FU at this time, prefers expectant management Has fu appt in 2-3 wks Increased frequency of urination 420263368 R35.0 Ultrasound showed PVR of 21 mLWas to see Urol but had to cx appt, enc him to r/s [id number] Josh Langford MD , [facility], [address] [place] [address] 01/09/2021 07:58:18 01/16/2021 10:55:32 Mixed hyperlipidemia 747346344 E78.2 Cholestero l is not at goalContin ue to work on diet and exercise as discussedH ad anahi ruth atorvastat inWilling to try another statin again.. if sxs recur will not use statins in futureInte grated Nutrition today Prostate s pecific antigen above reference range 475675688 R97.20 Wakes once per night to urinateSom e hesitancyP SA 10, will refer to UrologyU/S of kidneys/bl adder normal PVR 21 mL in September Morbid obesity 384689332 E66.01 has lost 30-40 lbs in past 5 yrsexercis e limited due to OAdiscusse d dietary changes/ Integ Nutrition visit 01/09/21. 15 minutes spent, obesity code utilized. See separate integrated nutrition note for plan/goals set. Lumbago with sciatica 20 3050682 M54.41 Flare lasted 1 moBetter now, will start HEP again. Has had PT.Prefers no referral to PSSP for now [id number] Gloria Grimes DO , [facility], [address] [place] [address] 10/16/2021 07:49:43 10/16/2021 09:20:15 Morbid obesity 027826602 E66.01 has lost 30-40 lbs in past 5 yrsexercis e limited due to OAdiscusse d dietary changes/ Integ Nutrition visit 01/09/21. Adult heal th examination 787339809 Z00.00 Encouraged routine exercise & well rounded dietSees Dentist/Op tometrist routinely- colonoscop y UTD-comple jewel Buddy at outside pharmacy-1 0 yr ASCVD risk- 26%, recommende d resuming statin-Enc ouraged completion of ACP/HCP/MO LST Forms/ discuss w. family Counseling 038208671 Z71 .9 including cardiovasc ular risk reduction counseling Depression screening 171 435748 Z13.31 depression screening tool administer ed, entered into emr, scored and discussed, time greater than 7.5 minutesNEG Screening for alcohol abuse 655264544 Z13.39 NEG Mixed hyperlipidemia 267 779628 E78.2 Cholestero l is not at goalContin ue to work on diet and exercise as discussedW illing to restart statin Caregiver role strain 12 0699428 Z73.3 denisse with dementia2 children leave nearby but with limited ability to helpOutrea W [facility] for consultati on/ assistance Urged FU in 4-6 wks Lumbago with sciatica 20 9075032 M54.41 Flare lasted 1 moBetter now, will start HEP again. Has had PT.Prefers no referral to PSSP for now Neck pain 06423112 M54.2 R sided neck pain w/o s/s of radiculopa thyPT referral placedSeem s muscular [id number] DO ABDULAZIZ Ruano, [facility], [address] [place] [address] 11/13/2021 08:53:01 11/13/2021 09:46:49 Mixed hyperlipidemia 603477677 E78.2 Cholestero l is not at goalContin ue to work on diet and exercise as discussedW illing to restart statin (had muscle cramps w. atorvastat in)If se's develop on pravastati n, please call and let me know you chose to stop it. Caregiver role strain 12 6192283 Z73.3 denisse with dementia2 children leave nearby but with limited ability to helpW [facility] sched to do home assessment in SeptDiscus sed Memory Care Initit thru [facility]: Gave brochure to contactOff ered Consult w. Dr Kimi umaña an: they are thinking about it. Neck pain 86827775 M54.2 R sided neck pain w/o s/s of radiculopa thyPT referral placed at last visit but chose to do HEP instead; declines PT at this time [id number] Ana Kaminski MD , [facility], [address] [place] [address] 01/17/2022 11:27:39 01/17/2022 16:00:13 Active or passive immunization 800460831 Z23 [id number] Ana Kaminski MD , [facility], [address] [place] [address] 09/04/2022 12:32:49 09/04/2022 15:03:42 Low back pain 315702144 M54.50 recurrent, no recent injury or pain in recent yrsRad to R hip and affecting R knee, limpingWil l start with PTConsider XR Lumbar spine, PSSP consult if pain persists/w orsensWoul d consider trial of steroid inj IF pain persists and is a good candidate. No radicular sxs nowNot taking OtC meds, not helpful Morbid obesity 885185495 E66.01 has maintained wt loss of >50 lbs in past 5 yrsexercis e limited due to OAcongrat on his efforts Intermitte nt claudication 34193419 I73.9 borderline ABIs in 2019 with mild plaque buildup.sx s remain stable, no change.sta rt ASA , as above.no need for surgical interventi on at this time. [id number] Ana Kaminski MD , [facility], [address] [place] [address] 08/27/2023 14:37:59 08/27/2023 16:13:16 Paroxysmal atrial fibrillation 850186559 I48.0 New dxEKG ConfirmsAs xDiscussed dx/ importance of treating/ stroke risk and prevention Agrees to txAgrees to r[facility] Intermitte nt claudication 30775403 I73.9 borderline ABIs in 2019 with mild plaque buildup.Re ports he is overall asx, plans to walk morestart ASA , as above.no need for surgical interventi on at this time. Increased frequency of urination 782596463 R35.0 2020 Ultrasound showed PVR of 21 mLHad elev PSA in 2020, ref to Urology, but did not FUPlan close FU in next few wks Normal grief reaction 27 8651570 F43.20 last week after long illnesshe is grieving appropriat josemanuel; but struggling . not sleeping wellHas family/fri ends and good supportsDe clines support groupDecli elfego [facility], ok w. phone call next weekDeclin es rx for insomnia Long-term current use of anticoagulant 848875665 Z79.01 started DOAC today [id number] Ana Kaminski MD , [facility], [address] [place] [address] 09/08/2023 10:21:17 09/08/2023 12:26:41 Chronic atrial fibrillation 133271915 I48.20 Please contact [facility] for appt!Yaneth nue your metoprolol dailyYou agreed to a trial of coumadin; We need INR checks and gradual dosingNurs ing will discuss more details about coumadin with youFU with in 3 wks CHADDs vasc= 4INR Range 2-3 Normal grief reaction 27 6853077 F43.20 last week after long illnessgri eving appropriat josemanuel; but struggling . not sleeping wellHas family/fri ends and good supportsDe clines support groupPlan FU in 3 wks Lumbar radiculopathy 128 035946 M54.16 chronic but this feels different and worsewill ck XR and consult w PSSP [id number] Ana Kaminski MD , [facility], [address] [place] [address] 09/24/2023 08:10:35 09/25/2023 11:58:09 Paroxysmal atrial fibrillation 070662829 I48.0 [id number] Ana Kaminski MD , [facility], [address] [place] [address] 10/02/2023 09:49:06 10/02/2023 20:24:51 Paroxysmal atrial fibrillation 180577233 I48.0 [id number] Ana Kaminski MD , [facility], [address] [place] [address] 10/09/2023 09:30:58 10/10/2023 14:16:18 Paroxysmal atrial fibrillation 798722300 I48.0 [id number] Ana Kaminski MD , [facility], [address] [place] [address] 10/16/2023 08:31:20 10/21/2023 13:03:39 Paroxysmal atrial fibrillation 540338475 I48.0 [id number] Ana Kaminski MD , [facility], [address] [place] [address] 10/23/2023 10:24:37 10/29/2023 13:36:42 Paroxysmal atrial fibrillation 722104232 I48.0 [id number] Ana Kaminski MD , [facility], [address] [place] [address] 10/30/2023 08:57:11 11/03/2023 11:17:13 Paroxysmal atrial fibrillation 196867477 I48.0 [id number] Ana Kaminski MD , [facility], [address] [place] [address] 11/06/2023 10:27:00 11/09/2023 12:55:35 Paroxysmal atrial fibrillation 548899175 I48.0 [id number] Ana Kaminski MD , [facility], [address] [place] [address] 11/20/2023 13:49:01 11/26/2023 20:54:59 Paroxysmal atrial fibrillation 223142577 I48.0 [id number] Ana Kaminski MD , [facility], [address] [place] [address] 11/27/2023 14:29:39 11/27/2023 18:33:23 Paroxysmal atrial fibrillation 379508921 I48.0 Active or passive immunization 133493621 Z23 [id number] Ana Kaminski MD , [facility], [address] [place] [address] 12/04/2023 09:32:44 12/09/2023 12:08:44 Paroxysmal atrial fibrillation 968830360 I48.0 [id number] Ana Kaminski MD , [facility], [address] [place] [address] 12/11/2023 08:24:28 12/15/2023 10:02:55 Paroxysmal atrial fibrillation 864488484 I48.0 [id number] Ana Kaminski MD , [facility], [address] [place] [address] 12/18/2023 08:39:41 12/23/2023 19:00:35 Paroxysmal atrial fibrillation 702972231 I48.0 [id number] Ana Kaminski MD , [facility], [address] [place] [address] 12/25/2023 08:58:58 12/29/2023 13:15:48 Paroxysmal atrial fibrillation 080613010 I48.0 [id number] Ana Kaminski MD , [facility], [address] [place] [address] 01/01/2024 09:48:44 01/01/2024 11:52:55 Paroxysmal atrial fibrillation 730117678 I48.0 [id number] Ana Kaminski MD , [facility], [address] [place] [address] 01/08/2024 09:16:53 01/12/2024 14:24:41 Paroxysmal atrial fibrillation 007839251 I48.0 [id number] Ana Kaminski MD , [facility], [address] [place] [address] 01/15/2024 08:12:02 01/16/2024 13:50:41 Paroxysmal atrial fibrillation 248570635 I48.0 [id number] Ana Kaminski MD , [facility], [address] [place] [address] 01/25/2024 10:20:00 01/26/2024 13:41:10 Paroxysmal atrial fibrillation 828065337 I48.0 [id number] Ana Kaminski MD , [facility], [address] [place] [address] 02/01/2024 10:06:35 02/02/2024 12:54:30 Long-term current use of anticoagulant 425086012 Z79.01 [id number] Ana Kaminski MD , [facility], [address] [place] [address] 02/05/2024 08:04:52 02/10/2024 15:51:45 Paroxysmal atrial fibrillation 816043218 I48.0 [id number] Ana Kaminski MD , [facility], [address] [place] [address] 02/10/2024 15:05:48 02/15/2024 14:22:30 Paroxysmal atrial fibrillation 535488722 I48.0 [id number] Ana Kaminski MD , [facility], [address] [place] [address] 03/01/2024 10:30:21 03/01/2024 11:55:46 Pain of right knee joint 6724613698 86748 M25.561 using cane. signif pain. would be open to steroid injection if amenable.w ill ck XR and get sports med consult Prostate s pecific antigen above reference range 628661043 R97.20 Wakes 1-2x night to urinate with some obstructiv e sxsPSA is very elevated Long-term current use of anticoagulant 535742414 Z79.01 on coumadin Paroxysmal atrial fibrillation 138775730 I48.0 rate controlled on metoprolol , AC with warfarin.W ill refer for cardiology consult, has not yet seenNo syncope, SOBWhen insur changes, will switch to DOAC (currently too costly) [id number] Ana Kaminski MD , [facility], [address] [place] [address] 03/08/2024 08:51:21 03/10/2024 14:34:36 Paroxysmal atrial fibrillation 624030290 I48.0 Start Xarelto [id number] Ana Kaminski MD , [facility] [address] [place] [address] 03/15/2024 08:11:01 03/15/2024 11:46:14 Paroxysmal atrial fibrillation 647475501 I48.0 Start Xarelto [id number] Ana Kaminski MD , [facility] [address] [place] [address] 03/25/2024 07:50:43 03/25/2024 10:30:27 Paroxysmal atrial fibrillation 454055137 I48.0 [id number] Ana Kaminski MD , [facility] [address] [place] [address] 04/01/2024 08:23:18 04/04/2024 14:02:30 Paroxysmal atrial fibrillation 776859158 I48.0 [id number] Ana Kaminski MD , [facility] [address] [place] [address] 04/08/2024 08:10:34 04/08/2024 12:24:27 Paroxysmal atrial fibrillation [id number] I48.0 [id number] BENITA RANDHAWA NP , [facility] [address] [place] [address] 04/15/2024 08:35:36 04/15/2024 11:14:28 Paroxysmal atrial fibrillation 508562189 I48.0 [id number] BENITA RANDHAWA NP , [facility] [address] [place] [address] 04/22/2024 10:51:21 04/22/2024 11:12:36 Paroxysmal atrial fibrillation 829289977 I48.0 [id number] Ana Kaminski MD , [facility] [address] [place] [address] 05/06/2024 07:56:29 05/06/2024 12:04:14 Paroxysmal atrial fibrillation 097967043 I48.0 [id number] German Mendoza MD Sports Medicine, [facility] [address] [place] [address] 07/05/2024 08:33:34 07/26/2024 12:35:26 Pain of right knee region 7719926092 43588 M25.561 Rashmi is an 78-year-ol d male with right knee sensations of instabilit y in the setting of a 18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 His x-rays were reassuring without any evidence of a periprosth etic fracture or evidence of loosening. Clinically I do not see any evidence of a periprosth etic infection. He does have a small joint effusion but this is similar to his contralate ral side which also has a knee arthroplas ty. I discussed with Rashmi that some of his instabilit y sensations may be functional in nature and related to muscular inhibition . We also discussed the possibilit y of problems with the knee implant not seen on the x-ray or the knee implant reaching its end of life. I have advised a trial of physical therapy and he was provided with a referral. We discussed that if this does not resolve his symptoms he would benefit from referral to a surgeon who performs knee arthroplas ty for further evaluation of his implant. He will plan to follow up with me in 12 weeks if his symptoms are not improving. [id number] Ana Kaminski MD , [facility], [address] [place] [address] 05/27/2024 10:08:59 05/30/2024 11:22:28 Paroxysmal atrial fibrillation [id number] I48.0 [id number] Hadley Peck MD , [facility], [address] [place] [address] 06/08/2024 09:14:27 06/09/2024 15:00:52 Long-term current use of anticoagulant [id number] Z79.01 No abn bleeding or bruising Paroxysmal atrial fibrillation [id number] I48.0 Chronic atrial fibrillati on managed with Coumadin. No reported palpitatio ns, chest discomfort , fatigue, or shortness of breath. Pulse is irregularl y irregular but HR within acceptable range. INR will be checked to determine if Coumadin dosage needs adjustment . - Check INR to assess Coumadin levels and adjust dosage if necessary- Continue Coumadin therapy- Follow up with cardiologi st in June- Follow up w PCP in 6 mos. Retention of urine [id number] 4002 R33.9 Recent urinary tract infection treated with antibiotic s. Menon catheter in place due to urinary retention. Expresses discomfort and desire for catheter removal. Urine output is adequate but appears dark. Catheter removal scheduled for this week at [facility]. - Increase water intake- Schedule appointmen t with urologist for catheter management and further evaluation - Provide contact informatio n for Dr. Arguelles, the urologist previously referred to Prostate s pecific antigen above reference range [id number] R97.20 12/12/2020 10.47 ng/ml01/09 8.5 NG/ML02/08 29.38 NG/ML - Refer to urologist for further evaluation (Dr Arguelles [[facility] [place] Bereavement [id number] Z63 .4 Experienci ng significan t grief [...] and healthcare management . Will send case. [id number] Ana Kaminski MD , [facility], [address] [place] [address] 06/17/2024 08:32:39 06/17/2024 11:18:25 Paroxysmal atrial fibrillation [id number] I48.0 [id number] Ana Kaminski MD , [facility], [address] [place] [address] 06/24/2024 08:20:13 06/29/2024 12:32:33 Paroxysmal atrial fibrillation [id number] I48.0 [id number] Ana Kaminski MD , [facility], [address] [place] [address] 07/01/2024 08:54:40 07/05/2024 11:41:54 Paroxysmal atrial fibrillation [id number] I48.0 [id number] Ana Kaminski MD , [facility], [address] [place] [address] 07/08/2024 10:01:20 07/11/2024 10:59:33 Paroxysmal atrial fibrillation [id number] I48.0 [id number] Ana Kaminski MD , [facility], [address] [place] [address] 07/15/2024 14:01:57 07/18/2024 14:47:19 Paroxysmal atrial fibrillation [id number] I48.0 [id number] MD ABDULAZIZ Johnson, [facility], [address] [place] [address] 07/22/2024 14:05:02 07/25/2024 11:03:24 Paroxysmal atrial fibrillation [id number] I48.0 [id number] Ana Kaminski MD , [facility], [address] [place] [address] 07/29/2024 15:25:26 08/01/2024 08:08:31 Paroxysmal atrial fibrillation [id number] I48.0 Health Concerns Section Related Observation LastModified by Organization Detai ls LastModified Time None Recorded Concern Status LastModified by Organization Details LastModified Time None Recorded Advance Directives Directive Y: Payers Encounter Date Sequence Insurance Name Policy Number Policy Jean Covered Member ID Jean Member ID Guarantor Name 07/05/2024 1 [place] [employer] Shant Melissa [id number] Shant Melissa 07/05/2024 2 [place] [id number] Shant Melissa [id number] Hsant Melissa 07/08/2024 1 [place] [employer] Shant Melissa [id number] Shant Melissa 07/08/2024 2 [place] [id number] Shant Melissa [id number] Shant Melissa 07/15/2024 1 [place] [employer] Shant Melissa [id number] Shant Melissa 07/15/2024 2 [place] [id number] Shant Melissa [id number] Shant Melissa 07/22/2024 1 [place] [employer] Rashmi De La Rosa Melissa [id number] Rashmi De La Rosa Melissa 07/22/2024 2 [place] [id number] Rashmi De La Rosa Melissa [id number] Rashmi De La Rosa Melissa 07/29/2024 1 [place] [employer] Rashmi De La Rosa Melissa [id number] Rashmi De La Rosa Melissa 07/29/2024 2 [place] [id number] Rashmi De La Rosa Melissa [id number] Rashmi De La Rosa Melissa Notes Date Note Type Note Provider Name and Address Organization Details Recorded Time 07/05/2024 text/html Rashmi is an 78-year-old male who presents today fo evaluation of right knee instability sensations. He states 20 years ago he had a right knee replacement performed at [facility]. He states this has done well without any problems and to a fall 4 months ago. He states that the time he did not necessarily impact his knee on the ground but twisted the knee. This occurred when he tripped over a curb coming out of [facility]. Since then the knee has felt unstable and somewhat uncomfortable. He states he has been using a cane to walk. He denies any focal pain or swelling of the knee. He denies any fevers. He denies any mechanical locking type symptoms. German Mendoza MD [address] [place] [address], [place], [address], [facility] [place] 07/05/2024 09:12:36
== END 2024-08-12 11:33 | disposition home or self-care (01) ==
LOC: HO.HUSH 09:29
PROVIDERS: Visit Provider Urology
DX: R33.9 Retention of urine, unspecified (principal)
CPT/HCPCS: 52000

== ENCOUNTER → 2024-08-12 09:29 | Outpatient (BNVA) | payer MEDICARE, SELFPAY | PROVIDERS: Visit Provider Urology | DX: N40.1 Benign prostatic hyperplasia with lower urinary tract symptoms (principal); R39.14 Feeling of incomplete bladder emptying; R33.8 Other retention of urine | CPT/HCPCS: 51798; 52000 ==

== ENCOUNTER → 2024-08-24 07:53 | Outpatient (BNVA) | payer MEDICARE, SELFPAY | PROVIDERS: Visit Provider Urology | DX: R33.9 Retention of urine, unspecified (principal) | CPT/HCPCS: 51798 ==

== ENCOUNTER 2024-09-30 14:45 | Outpatient (AMB) | payer MEDICARE, SELFPAY ==
--- OUTSIDE RECORDS SUMMARY | 2024-09-30 14:47 | XMS_ITS | Clinical Summary ---
Author Organization [facility] Address [address] [place] [address] [place] [phone] Phone Care Team Providers Care Sweet Dough Mixer Name Role Phone Rashmi Enriquez MD Primary Care Provider [email or web address] Encounters Date Type Department Care Team Description 07/05/2024 Transcribe Orders [facility] [address] [place], [place] [phone] German Mendoza MD Encounter for rehabilitation (Primary Dx) from Last 3 Months Social History Tobacco Use Types Packs/Day Years Used Date Smoking Tobacco: Never Assessed Education Answer Date Recorded Are you interested in more education? Not on jose e 07/11/2022 Are you concerned about learning? Not on file 07/11/2022 No 07/11/2022 No 07/11/2022 Digital Access Answer Date Recorded No 08/09/2022 No 08/09/2022 No 08/09/2022 Reliable internet access at home? Not on file 08/09/2022 Device with a working camera? Not on file Sex and Gender Information Value Date Recorded Sex Assigned at Not on file Legal Sex Male 10:10 PM EDT Gender Identity Not on file Sexual Orientation Not on file Plan of Treatment Upcoming Encounters Date Type Department Care Team (Late st Contact Info) Description 10/28/2024 2:40 PM EDT Office Visit [facility] [address] [facility] [address] Floor, [address] [place] [address] Jovon Beckham MD [address] [place] [phone] [email or web address] Health Maintenance Due Date Last Done Comments DEPRESSION SCREENING 1955 ZOSTER VACCINES (1 of 2) 09/04/1993 PNEUMOCOCCAL VACCINES (50+ years) (2 of 2 - PCV) 10/30/2010 10/30/2009 RSV VACCINE (1 - 1-dose 75+ series) 09/04/2018 COVID-19 VACCINE (3 - 2023-2 5 season) 2023 05/19/2020, 04/21/2020 Adult Td,Tdap Booster 08/14/2027 08/13/2017 , 10/02/2006 HEPATITIS A VACCINES Aged Out No long er eligible based on patient's age to complete this topic HIB VACCINES Aged Out No longer eligi ble based on patient's age to complete this topic MENINGOCOCCAL VACCINES (ACWY) Aged Out No longer eligible based on patient's age to complete this topic MENINGOCOCCAL VACCINES (B) Aged Out N o longer eligible based on patient's age to complete this topic Medical Devices Not on file Insurance MEDICARE PART A & B [employer] SUPPLEMENT MEDICARE PART A & B [employer] MEDEX SUPPLEMENT MEDICARE PART A & B [employer] MED[employer] SUPPLEMENT MEDICARE PART A & B [employer] MEDEX SUPPLEMENT MEDICARE PART A & B [employer] MEDEX SUPPLEMENT MEDICARE PART A & B [facility] MEDEX SUPPLEMENT MEDICARE PART A & B Member Subscriber Plan / Payer ( fective 2006-Present) Name:Jonel Rashmi Member ID:[id number] Relation to Subscriber:Self Name:Rashmi Remy Subscriber ID:[id number] Payer ID:[id number] Group ID:Not on file Type:Medicare Address: [employer] [address] [place] [id number] Karma MEDEX SUPPLEMENT MEDICARE PART A & B [employer] MEDEX SUPPLEMENT MEDICARE PART A & B Lever [employer] MEDEX SUPPLEMENT Care Teams Sweet Dough Mixer Relationship Specialty Start Date End Date Rashmi Enriquez MD [email or web address] PCP - General Family Medicine 10/26/18 Additional Source Comments The information contained in this document represents components of the legal health record. It is not the complete legal health record.[facility]
--- OUTSIDE RECORDS SUMMARY | 2024-09-30 14:47 | XMS_ITS | Data Portability ---
Author Organization [facility], , [facility] Address [address] [place] [address] Care Team Providers Care Building Construction Engineer Name Role Phone DEANGELO RAMEY Form Coverer FARIBA ARRIAZA Assistant Professor Of Music [facility] Assistant Professor Of Music [phone] ARELY ARGUELLES OTHER CHICA GRIMES Primary Care Provider Assessment No assessment recorded. Plan of Treatment Reminders Order Date Submit Date Provider Last Modified By Organization Details Last Modified Time Details Appointments Treatmen t Nurse 20 2024 09:00A M FP TREATMENT NURSE [facility] Not available Not available Not available Treatmen t Nurse 2024 08:40A M FP TREATMENT NURSE [facility] Not available Not available Not available Medical Manageme nt 30 2024 09:00A M AYAKA SutherlandP- Not available Not available Not available Lab INR, blood 2024 025 [facility], [address] [place] [address], [id number], 09/30/2024 13:44:15 INR, blood 2024 025 [facility], [address] [place] [address], [id number], 09/02/2024 09:20:20 INR, blood [address] [facility], [address] [place] [address], [id number], 08/17/2024 14:09:07 INR, blood 2024 025 [facility], [address] [place], [address], 07/29/2024 16:03:18 INR, blood 2024 025 [facility], [address] [place], [address], 07/28/2024 10:36:03 Referral None recorded . Procedures None recorded . Surgeries None recorded . Imaging None recorded . Medication Orders None recorded . Patient TargetsNo targets recorded. Patient InstructionsNo instructions recorded. Reason for Referral None Reported. Results Created Date Observation Date Name Description Value Unit Range Abnormal Flag Note LastModifiedBy Organization Detail LastModifiedTime 06/25/1906/24/2024 POC INR INR POC 1.6 INR 0.9 - 1.1 high Not Available [facility] [address] [place], [address], 06/24/2024 09:15:19 07/02/1907/01/2024 POC INR INR POC 2.2 INR 0.9 - 1.1 high Not Available [facility] [address] [place], [address], 07/01/2024 10:06:04 07/09/1907/08/2024 POC INR INR POC 1.8 INR 0.9 - 1.1 high Not Available [facility] [address] [place], [address], 07/08/2024 11:05:02 07/16/19 25 07/15/2024 POC INR INR POC 1.9 INR 0.9 - 1.1 high Not Available [facility] [address] [place], [address], 07/15/2024 14:48:08 07/22/1907/21/2024 POC INR INR POC 2.1 INR 0.9 - 1.1 high Not Available [facility] [address] [place], [address], 07/28/2024 10:36:03 07/30/19 25 07/29/2024 POC INR INR POC 2.8 INR 0.9 - 1.1 high Not Available [facility] [address] [place], [address], 07/29/2024 16:03:18 08/13/19 25 08/12/2024 POC INR INR POC 2.7 INR 0.9 - 1.1 high Not Available [facility] [address] [place], [address], 08/12/2024 16:13:51 09/03/19 25 09/02/2024 POC INR INR POC 3.0 INR 0.9 - 1.1 high Not Available [facility] [address] [place], [address], 09/02/2024 09:20:20 Result Notes None recorded. Problems Name Problem SNOMED Code Status Onset Date Resolution Date Notes Provider Name and Address Organization Details Recorded Time Morbid obesity 832210889 Completed 01/27/2017 [facility]12 Pain of hip region 02426967 Active Rashmi Enriquez MD [address] [place] [address], , [facility] 6 14:23:01 Urticari a 533229677 Completed 03/05/2011 Rashmi Enriquez MD [address] [place] [address], , [facility] 6 14:23:01 Current tear of medial cartilag e AND/OR meniscus of knee Completed 199908/31/2012 Rashmi Enriquez MD [address] [place] [address], , [facility] 14:23:02 Breathin g painful 76685859 Completed 200003/05/2011 Rashmi Enriquez MD [address] [place] [address], [address] , [facility] 14:23:02 Hyperlip idemia 17880662 Completed 200203/05/2011 Rashmi Enriquez MD [address] [place] [address], , [facility] 6 14:23:01 Mixed hyperlip idemia 819847076 Active 2003 Rashmi Enriquez MD [address] [place] [address], [address] , [facility] 6 09:02:32 Knee pain Completed 200308/31/2012 Rashmi Enriquez MD [address] [place] [address], [address] , [facility] 6 14:23:02 Actinic keratosi s 762023518 Completed 200303/05/2011 Rashmi Enriquez MD [address] [place] [address], [address] , [facility] 6 14:23:01 Pure hypercho lesterol emia 417613016 Completed 200303/05/2011 Rashmi Enriquez MD [address] [place] [address], [address] , [facility] 6 14:23:01 Osteoart hritis of knee 747481290 Completed 200312/18/2013 Rashmi Enriquez MD [address] [place] [address], [address] , [facility] 6 14:23:01 Localize d, primary osteoart hritis 779678169 Completed 200312/18/2013 Rashmi Enriquez MD [address] [place] [address], , [facility] 6 14:23:01 Verruca vulgaris 20941170 Completed 200303/05/2011 Rashmi Enriquez MD [address] [place] [address], [address] , [facility] 6 14:23:01 Generali zed osteoart hritis 675231078 Active 2004 Knees Rashmi Enriquez MD [address] [place] [address], [address] , [facility] 6 09:02:32 Low back pain 425643677 Active 2005 Rashmi Enriquez MD [address] [place] [address], , [facility] 6 09:02:32 Chest pain 78549624 Completed 200503/05/2011 Rashmi Enriquez MD [address] [place] [address], , [facility] 6 14:23:02 Dysphagi a 43373569 Completed 200503/05/2011 Rashmi Enriquez MD [address] [place] [address], , [facility] 6 14:23:02 Headache 06342477 Completed 200603/05/2011 Rashmi Enriquez MD [address] [place] [address], [address] , [facility] 6 14:23:02 Cough 59413280 Completed 200703/05/2011 Rashmi Enriquez MD [address] [place] [address], [address] , [facility] 6 14:23:02 Pneumoni a 785641680 Completed 200703/05/2011 Rashmi Enriquez MD [address] [place] [address], , [facility] 6 14:23:01 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 Debbie Worthy LPN null, [facility] 10:53:12 Lumbago with sciatica 701956235 Active 2020 Laine Mathis-Jennifer verma PA-C [address] [place] [address], [address] , [facility] 1 08:42:48 Obesity 327087908 Active 2020 BMI = 37 after wt loss past 2 yrs. Previous morbid obesity. sylvia Camp RD, LDN [address] [place] [address], [address] , [facility] 1 09:12:16 Intermit tent claudica tion 52887584 Active 2022 Laine verma PA-C [address] [place] [address], [address] , [facility] 3 18:37:28 Paroxysm al atrial fibrilla tion 987105217 Active 2023 Laine verma PA-C [address] [place] [address], [address] , [facility] 4 16:03:57 Long-ter m current use of anticoag ulant 043140327 Active 2023 Laine verma PA-C [address] [place] [address], [address] , [facility] 4 16:23:31 Retentio n of urine 988258174 Active 2024 [address], [address] , [facility] 5 05:51:56 Prostate specific antigen above referenc e range 685135046 Active 2024 RASHMI PALACIOS [address], [address] , [facility] 5 05:52:15 Problem Notes None recorded. Procedures Surgical History Date Name Laterality Status Provider Name and Address Organization Details Recorded Time 09/08/19 24 [id number] completed Laine castelan PA-C [address] [place] [address], [address], [facility] 09/08/2023 11:56:13 09/08/19 24 Coumadin Teaching completed Susy Jade LPN [facility] 09/08/2023 12:32:36 04/28/19 24 Medicare Wellness Visit cancelled Sowmya Teague [facility] 04/28/2023 10:40:16 10/22/19 23 Medicare Wellness Visit cancelled Rosana Bender [facility] 10/21/2022 08:46:56 10/17/19 22 Medicare Wellness Visit completed Rosana Bender [facility] 10/16/2021 08:17:13 10/17/19 22 Alcohol use screening completed Rosana Bender [facility] 10/16/2021 08:17:13 10/17/19 22 Cardiovascular disease risk reduction counseling completed Rosana Bender [facility] 10/16/2021 08:17:13 10/09/19 21 Medicare Wellness Visit completed Joseph Lundy [facility] 10/08/2020 08:38:47 10/09/19 21 prevention-cardiov ascular risk reduction counseling completed Joseph Lundy [facility] 10/08/2020 08:38:47 10/09/19 21 prevention-annual alcohol misuse screening completed Joseph Lundy [facility] 10/08/2020 08:38:47 08/22/19 21 42700: Therapeutic Exercise completed Santo Bueno, PT [address] [place], [address], [facility] 08/21/2020 11:57:35 08/22/19 21 Treatment and Advice completed Santo Bueno, PT [address] [place], [address], [facility] 08/21/2020 11:38:28 07/18/19 21 Physical Activity Counselling completed Santo Bueno, PT [address] [place], [address], [facility] 07/17/2020 12:34:42 07/18/19 21 89425: PT Eval Low Complexity completed Santo Bueno, PT [address] [place], [address], [facility] 07/17/2020 12:34:42 07/18/19 21 Treatment and Advice completed Santo Bueno, PT [address] [place], [address], [facility] 07/17/2020 13:01:03 09/14/19 19 Medicare Wellness Visit completed Jaz Payne [facility] 09/13/2018 08:53:02 01/28/20 17 Medicare Wellness Visit completed Malissa Tan [facility] 01/27/2017 14:42:42 03/16/19 17 extraction of cataract completed Laine castelan PA-C [address] [place], [address], [facility] 10/08/2020 09:54:47 06/28/19 16 Medicare Wellness Visit completed Jessica Chery [facility] 06/28/2015 14:02:30 06/28/19 16 Seborrheic Keratosis completed Rashmi Enriquez MD [address] [place], [address], [facility] 06/29/2015 09:00:32 03/22/19 15 <strong>Pain</stro ng> Assessment and Follow-up (G8730) completed Santo Bueno, PT [address] [place], [address], [facility] 03/22/2014 14:36:00 03/22/19 15 <strong>Falls</str jennie> Risk Assessment - No Risk (1101F) completed Santo Bueno, PT [address] [place], [address], [facility] 03/22/2014 14:36:00 03/22/19 15 <strong>Functional </strong> Outcome w/ POC (G8539) completed Santo Bueno, PT [address] [place], [address], [facility] 03/22/2014 14:36:00 03/22/19 15 <strong>BMI</stron g> Documented Outside Normal Parameters, no Follow-up Documented, Reason not Given (G8419) completed Santo Bueno, PT [address] [place], [address], [facility] 03/23/2014 20:32:01 03/22/19 15 Current <strong>Medication s</strong> Documented (G8427) completed Santo Bueno, PT [address] [place], [address], [facility] 03/22/2014 14:36:00 03/22/19 15 63547: PT Evaluation completed Santo Bueno, PT [address] [place], [address], [facility] 03/22/2014 14:36:00 03/22/19 15 Treatment and Advice completed Santo Bueno, PT [address] [place], [address], [facility] 03/22/2014 14:30:47 12/02/19 14 Medicare Wellness Visit completed Jessica Chery [place] [facility] 12/01/2013 10:33:38 09/01/19 13 Medicare Wellness Visit completed Rebeca Sanchez MA [facility] 08/31/2012 09:17:14 03/05/20 11 Medicare Wellness Visit completed Catalino Tang MA [facility] 03/05/2011 15:21:21 total knee replacement completed Laine castelan PA-C [address] [place] [address], [address], [facility] 10/08/2020 09:29:32 Imaging Results None recorded. Procedure Notes None recorded. Medical Equipment None Reported. 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 09/07 completed Not Available Not Available Not Available Vitamin B12 1000 mcg daily orally 04/15 completed Not Available Not Available Not Available cyanocoba brian (vitamin B-12) 1,000 mcg capsule Take 1 capsule every day by oral route. 09/04 completed not taking 10/16/21 am Not Available Not Available Not Available Fluad Quad 0782-1635 (65yr up)(PF) 60 mcg (15 mcg x 4)/0.5mL IM syringe PHARMACY ADMINIST ERED 07/16 completed Not Available Not Available Not Available Vitals None Recorded Social History Question Answer Notes LastModified by Organizat ion Details LastModified Time Tobacco Smoking Status Never Smoker Not Available [facility] 01/30/2011 04:53:49 Do You Have An Advance [...] Drinking Consumption (4+ Female, 5+ Male)? 0 [email or web address] Information not available 09/13/2018 Are There Any [...] Care Proxy Signed And In Chart No Jennifer([facility]) Information not available 11/26/2017 CSRP - Stimulants No Information not available 03/20/2014 CSRP - Suboxone No Informati on not available 06/28/2015 CCM Consent Discussion 10/16/2021 [email or web address] Information not available 10/29/2021 Marital Status Information not available 01/30/2011 Mosquito Repellent Used Routinely Yes Information not available 03/05/2011 What Was The Date Of Your Most Recent Tobacco Screening? 06/08/2024 [email or web address] Information not available 06/08/2024 How Many Children Do You Have? 2 Information not available 07/28/2011 What Is Your Relationship Status? Information not available 10/08/2020 Do You Use Your Seat Belt Or Car Seat Routinely? Yes Information not available 10/16/2021 Seat Belts Used Routinely Yes 17 Information not available 01/30/2011 Smoke Alarm In Home Yes 17 Information not available 01/30/2011 Do You Have Smoke And Carbon Monoxide Detectors In Your Home? Yes Information not available 10/08/2020 Are You Passively Exposed To Smoke? No [email or web address] Information not available 10/08/2020 How Much Tobacco Do You Smoke? No Information not available 06/28/2015 General Stress Level Medium Information not available 07/28/2011 Do You Use Sunscreen Routinely? Yes Information not available 03/05/2011 Sex: Male Functional Status Question Answer Note LastModified by Organizat ion Details LastModified Time Do you use any illicit or recreational drugs? No Information not available 10/08/2020 Do you or have you ever used any other forms of tobacco or nicotine? No [email or web address] Information not available 09/04/2022 What is your level of alcohol consumption? Moderate 2x week few beers [email or web address] Information not available 09/07/2017 Do you or have you ever used smokeless tobacco? 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 Never used electronic cigarettes Information not available 04/15/2019 What is your [...] virus, trivalent, preservative 1 completed Not Available [facility] 04/02/2019 02:18:11 Influenza, split virus, trivalent, preservative 9 completed Not Available [facility] 04/02/2019 02:29:23 Tdap 7 completed Not Available [facility] 01/29/2011 05:21:55 Influenza, split virus, trivalent, preservative 2 completed Not Available [facility] 04/02/2019 02:18:34 Influenza, split virus, trivalent, PF 3 completed Not Available [facility] 04/02/2019 02:26:35 Influenza, high-dose, trivalent, PF 4 completed Not Available [facility] 04/02/2019 02:19:19 Influenza, high-dose, trivalent, PF 5 completed Not Available [facility] 04/02/2019 02:29:57 Td (adult), 2 Lf tetanus toxoid, preservative free, adsorbed 6 completed Not Available [facility] 04/02/2019 02:20:36 Pneumococcal conjugate PCV 13 6 completed Not Available [facility] 04/02/2019 02:39:42 Influenza, high-dose, trivalent, PF 6 completed Not Available [facility] 04/02/2019 02:21:05 Influenza, high-dose, trivalent, PF 7 completed Not Available [facility] 04/02/2019 02:22:02 Influenza, high-dose, trivalent, PF 9 completed Not Available [facility] 04/02/2019 02:34:18 pneumococcal polysaccharide PPV23 0 completed Not Available [facility] 04/02/2019 02:34:19 Influenza, high-dose, trivalent, PF 9 completed Not Available [facility] 04/02/2019 02:24:36 COVID-19, mRNA, LNP-S, PF, 100 mcg/0.5mL dose or 50 mcg/0.25mL dose 1 completed SAMANTHA Agrawal, [facility] 04/21/2020 10:49:38 COVID-19, mRNA, LNP-S, PF, 100 mcg/0.5mL dose or 50 mcg/0.25mL dose 1 [facility] 05/19/2020 11:00:30 Influenza, high-dose, quadrivalent, PF 1 completed FOX Cobian, [facility] 12/12/2020 14:50:45 Influenza, high-dose, quadrivalent, PF 2 completed Kourtney Gonzalez LPN beatriz, [facility] 01/17/2022 11:53:53 COVID-19, mRNA, LNP-S, PF, 100 mcg/0.5mL dose or 50 mcg/0.25mL dose 2 completed Janis Bazan MA beatriz, [facility] 04/04/2021 14:18:45 influenza, unspecified formulation 0 completed Not Available [facility] 01/29/2011 05:20:34 Past Encounters Encounter ID Performer Location Encounter Start Date Encounter Closed Date Diagnosis/Indication Diagnosis SNOMED-CT Code Diagnosis ICD10 Code Diagnosis Note [id number] Namrata rogers, PT Physical Therapy, [facility] [address] [place] [address] 01/21/2000 12:00:00 04/05/2008 02:02:29 [id number] [facility] FP, [facility], OFFICE [address] [place] [address] 02/27/2000 15:05:00 04/05/2008 02:02:29 [id number] Rashmi Enriquez MD , [facility], OFFICE [address] [place] [address] 07/14/2000 10:45:00 04/05/2008 02:02:29 [id number] [facility] - [address] [address] 08/30/2001 10:21:58 04/05/2008 02:02:29 [id number] Rashmi Enriquez MD , [facility], OFFICE [address] [place] [address] 03/31/2002 09:50:47 04/05/2008 02:02:29 [id number] [facility] - [address] [address] 03/31/2002 10:52:19 04/05/2008 02:02:29 [id number] [facility] - [address] [address] 04/11/2002 10:26:12 04/05/2008 02:02:29 [id number] [facility] - [address] [address] 04/11/2002 16:52:35 04/05/2008 02:02:29 [id number] MD ABDULAZIZ Crespo, [facility], OFFICE [address] [place] [address] 04/17/2003 13:18:23 04/18/2003 08:07:13 [id number] [facility] - [address] [address] 05/03/2003 07:45:50 05/03/2003 07:46:02 [id number] Rashmi Enriquez MD , [facility], OFFICE [address] [place] [address] 05/18/2003 10:21:30 05/18/2003 17:16:53 [id number] [facility] - [address] [address] 06/01/2003 07:35:06 06/01/2003 09:23:00 [id number] Rashmi Enriquez MD , [facility], OFFICE [address] [place] [address] 08/23/2003 14:45:36 08/24/2003 11:18:14 [id number] [facility] - [address] [address] 10/05/2003 07:41:44 10/05/2003 11:05:38 [id number] [facility] - [address] [address] 01/04/2004 08:05:29 01/04/2004 08:05:33 [id number] MD ABDULAZIZ Crespo, [facility], OFFICE [address] [place] [address] 01/19/2004 15:45:52 01/20/2004 10:47:55 [id number] MD ABDULAZIZ Crespo, [facility], OFFICE [address] [place] [address] 03/27/2004 11:11:01 03/28/2004 08:51:20 [id number] [facility] - [address] [address] 03/27/2004 12:02:21 03/27/2004 12:02:37 [id number] Rashmi Enriquez MD , [facility], OFFICE [address] [place] [address] 07/04/2004 08:34:38 07/04/2004 09:42:37 [id number] [facility] - [address] [address] 09/25/2004 08:16:46 09/25/2004 08:16:51 [id number] Susy Castañeda NP , [facility], OFFICE [address] [place] [address] 02/25/2005 08:14:30 04/05/2008 02:02:29 [id number] [facility] - [address] [address] 03/31/2005 08:58:25 03/31/2005 08:58:51 [id number] MD ABDULAZIZ Crespo, [facility], OFFICE [address] [place] [address] 06/11/2005 16:02:27 04/05/2008 02:02:29 [id number] Rashmi Enriquez MD , [facility], OFFICE [address] [place] [address] 11/24/2005 11:53:53 04/05/2008 02:02:29 [id number] [facility] RADIOLOGY [facility] [address] [place] [address] 11/24/2005 12:28:01 04/05/2008 02:02:29 [id number] [facility] - [address] [address] 03/17/2006 07:57:48 03/17/2006 07:57:54 [id number] MD ABDULAZIZ Crespo, [facility], OFFICE [address] [place] [address] 04/16/2006 10:46:07 04/17/2006 08:24:07 [id number] MD ABDULAZIZ Crespo, [facility], OFFICE [address] [place] [address] 10/02/2006 13:42:46 10/05/2006 08:33:57 [id number] MD ABDULAZIZ Crespo, [facility], OFFICE [address] [place] [address] 02/08/2007 14:23:15 04/05/2008 02:02:29 [id number] [facility] - [address] [address] 02/18/2007 09:35:43 02/18/2007 09:35:48 [id number] MD ABDULAZIZ Crespo, [facility], OFFICE [address] [place] [address] 06/15/2007 08:48:22 04/05/2008 02:02:29 [id number] [facility] RADIOLOGY Technologi st Radiology , [facility] [address] [place] [address] 06/15/2007 10:24:30 06/16/2007 09:35:30 [id number] [facility] RADIOLOGY [employer] Rad[employer] , [facility] [address] [place] [address] 06/15/2007 00:00:00 04/05/2008 02:02:29 [id number] [facility] - [address] [address] 01/25/2008 08:47:36 01/25/2008 08:47:45 [id number] MD ABDULAZIZ Crespo, [facility], OFFICE [address] [place] [address] 08/02/2008 07:52:52 08/17/2008 11:35:48 [id number] MD ABDULAZIZ Crespo, [facility], OFFICE [address] [place] [address] 12/15/2008 16:27:47 12/18/2008 11:25:06 [id number] [facility] - [address] [address] 08/02/2008 09:10:43 08/02/2008 09:10:51 [id number] MD ABDULAZIZ Crespo, [facility], OFFICE [address] [place] [address] 10/30/2009 08:02:17 11/01/2009 12:20:23 [id number] [facility] ABDULAZIZ, [facility] [address] [place] [address] 11/20/2010 07:14:13 11/20/2010 09:03:41 [id number] MD ABDULAZIZ Crespo, [facility] [address] [place] [address] 03/05/2011 14:45:50 03/05/2011 16:06:36 [id number] Rashmi Enriquez MD , [facility] [address] [place] [address] 07/28/2011 08:31:25 07/29/2011 14:53:57 [id number] [facility] , [facility] [address] [place] [address] 11/19/2011 06:27:00 11/19/2011 08:57:52 [id number] Rashmi Enriquez MD , [facility] [address] [place] [address] 04/21/2012 09:14:44 04/21/2012 10:15:01 [id number] Rashmi Enriquez MD , [facility], [address] [place] [address] 08/31/2012 09:07:06 08/31/2012 11:22:00 [id number] Rashmi Enriquez MD , [facility] [address] [place] [address] 12/01/2012 06:20:26 12/01/2012 16:00:57 Influenza vaccine needed 8870742389 620 [id number] Rashmi Enriquez MD , [facility] [address] [place] [address] 04/14/2013 09:00:27 04/14/2013 09:46:35 Chest wall pain 380028212 Morbid obesity 731169718 Actinic keratosis 146902709 [id number] Rashmi Enriquez MD , [facility] [address] [place] [address] 12/01/2013 07:45:53 12/01/2013 11:05:29 Adult health examination 297262102 see Risk Assessment and Lifestyle Change Counseling section above Counseling 236448026 Mixed hyperlipidemia 767588733 Cholestero l is at goal Continue to work on diet and exercise as discussed Generalize d osteoarthritis 993783601 Morbid obesity 770848672 Fatigue 87821025 [id number] Lucia Foster NP , [facility], [address] [place] [address] 01/11/2014 06:16:13 01/11/2014 10:51:44 Influenza vaccine needed 1072481040 [id number] MD ABDULAZIZ Crespo, [facility] [address] [place] [address] 03/20/2014 09:12:16 03/22/2014 15:47:29 Generalized osteoarthritis 110099699 [id number] Santo Bueno , PT Physical Therapy, [facility] [address] [place] [address] 03/22/2014 13:31:17 03/24/2014 07:33:36 Pain of hip region 36969440 [id number] Rashmi Enriquez MD , [facility] [address] [place] [address] 12/19/2014 08:55:01 12/19/2014 11:56:45 Influenza vaccine needed 4246585762 106 Z28.3 [id number] Rashmi Enriquez MD , [facility] [address] [place] [address] 06/28/2015 13:43:23 07/02/2015 09:50:54 Mixed hyperlipidemia 536326431 E78.2 Adult heal th examination 151154545 Z00.00 see Risk Assessment and Lifestyle Change Counseling section above Counseling 788118644 Z71 .9 Active or passive immunization 436003872 Z23 Generalize d osteoarthritis 363777656 M15.9 Morbid obesity 578295705 E66.01 Low back pain 189575120 M54.5 [id number] Rashmi Enriquez MD , [facility] [address] [place] [address] 01/10/2016 10:51:33 01/11/2016 14:11:25 Active or passive immunization 730884887 Z23 Mixed hyperlipidemia 267 431312 E78.2 Chest pain 06351501 R07. 9 [id number] Rashmi Enriquez MD , [facility] [address] [place] [address] 02/15/2016 09:24:09 02/15/2016 10:08:43 Mixed hyperlipidemia 761853216 E78.2 [id number] Josh Langford MD , [facility] [address] [place] [address] 12/05/2016 06:48:51 12/08/2016 12:07:05 Active or passive immunization 969921282 Z23 [id number] Rashmi Enriquez MD , [facility] [address] [place] [address] 01/27/2017 14:35:24 01/27/2017 15:38:09 Adult health examination 149141547 Z00.00 see Risk Assessment and Lifestyle Change Counseling section above Counseling 046792723 Z71 .9 Generalize d osteoarthritis 369482851 M15.9 Mixed hyperlipidemia 267 983644 E78.2 Low back pain 773327598 M54.5 [id number] Rashmi Enriquez MD , [facility] [address] [place] [address] 09/07/2017 09:18:53 09/07/2017 09:48:31 Bilateral cataracts 71035132 H26.9 Preoperati ve cardiovascular examination 576502538 Z01.303 [id number] Rashmi Enriquez MD , [facility] [address] [place] [address] 05/25/2018 14:43:56 05/27/2018 11:34:19 Backache 488138340 M54.9 Active or passive immunization 934273841 Z23 Low back pain 675414296 M54.5 [id number] Lucia Foster NP , [facility] [address] [place] [address] 08/06/2018 15:02:35 08/10/2018 10:49:13 Low back pain 050058941 M54.5 Will call patient with radiology report - meanwhile back precaution s. Consider PSSP referral [id number] Rashmi Enriquez MD , [facility] [address] [place] [address] 09/13/2018 08:50:24 09/13/2018 09:33:41 Adult health examination 295155542 Z00.00 see Risk Assessment and Lifestyle Change Counseling section above Counseling 525855388 Z71 .9 Depression screening 171 383129 Z13.89 depression screening tool administer ed, entered into emr Generalize d osteoarthritis 607624365 M15.9 Mixed hyperlipidemia 267 744876 E78.2 Actinic keratosis 138781 007 L57.0 Intermitte nt claudication 99822197 I73.9 Neuropathy 137343935 G62 .9 [id number] Rashmi Enriquez MD , [facility] [address] [place] [address] 12/07/2018 14:48:59 12/07/2018 15:23:30 Active or passive immunization 562998967 Z23 [id number] Josh Langford MD , [facility] [address] [place] [address] 04/15/2019 17:19:25 04/19/2019 10:30:04 Hiccough present 706049037 R06.6 Has been having hiccoughs for 3 [...] sleep, enc go to ER. Pt and mariajose with this plan [id number] Gloria Grimes, FP, [facility], [address] [place] [address] 07/16/2020 12:22:43 07/17/2020 16:32:52 Backache 910519985 M54.9 Advised to take 600mg every 6 hours to help with inflammati on and pain, advised to use heat for 15min every 2 hours to help relax the muscles. Referred to PT. Call with new/worsen ing symptoms or if no improvemen t. Pt agrees with plan. Right side sciatica 3202 635989 89625 M54.31 Advised to take 600mg every 6 hours to help with inflammati on and pain, advised to use heat for 15min every 2 hours to help relax the muscles, and soak in 2 cups epsom salt bath 1x daily for 20min to help with muscle relaxation . Call with new/worsen ing symptoms or if no improvemen t. Pt agrees with plan. [id number] Santo Bueno , PT Physical Therapy, [facility] [address] [place] [address] 07/17/2020 12:11:21 07/19/2020 13:34:34 Low back pain 450951266 M54.5 74 year old male with signs and symptoms consistent with acute on chronic low back and hip [...] Include: therapeuti c exercise and manual therapy [id number] Santo Bueno , PT Physical Therapy, [facility] [address] [place] [address] 08/21/2020 11:03:54 08/21/2020 17:24:08 Low back pain 441992569 M54.5 Patient Goals: Able to sleep through [...] demands.(0 08/21/2020) his goals have been met. [id number] Josh Langford MD , [facility], [address] [place] [address] 10/08/2020 08:49:30 10/08/2020 10:25:40 Adult health examination 806562678 Z00.00 Encouraged routine exercise & well rounded dietSees Dentist/Op tometrist routinely- colonoscop y UTD-is considerin g Shingrix, other vaccines are UTD-10 yr ASCVD risk- 26%, recommende d starting statin and baby ASA-Encour aged completion of ACP/HCP/MO LST Forms/ discuss w. family Counseling 977340435 Z71 .9 including cardiovasc ular risk reduction counseling -10 yr ASCVD risk- 26%, recommende d starting statin and baby ASA Depression screening 171 772844 Z13.31 depression screening tool administer ed, entered into emr, scored and discussed, time greater than 7.5 minutesneg Screening for alcohol abuse 092988281 Z13.39 Morbid obesity 725507125 E66.01 has lost 30-40 lbs in past 5 yrsexercis e limited due to OAdiscusse d dietary changes Hypercholesterolemia 136 65508 E78.00 to start statinascv d risk 26%.LDL 129 Benign pro static hyperplasia with outflow obstruction 267862766 N40.1 Wakes once per night to urinate, mild hesistancy , no split stream , has urgency and frequency during the day. Progressiv josemanuel worse over the years.Will start trial of meds; take qs and monitor for dizziness. Right side sciatica 3202 084729 58121 M54.31 recent inc in symptoms.p lans to give it some timewill enc PT if persists. Intermitte nt claudication 71033927 I73.9 borderline ABIs in 2019 with mild plaque buildup.sx s remain stable, no change.sta rt ASA , as above.no need for surgical interventi on at this time. [id number] Josh Langford MD , [facility], [address] [place] [address] 10/19/2020 15:11:25 11/20/2020 15:07:10 Increased frequency of urination 020586937 R35.0 labs ordered.Ul trasound showed PVR of 21 mLWill get eval by Urol as sxs are relative sudden onset Microscopic hematuria 19 7794336 R31.29 Simple renal cyst 491994 09 N28.1 6.7 cm simple cyst/benig n, reassuranc e Right side sciatica 3202 366547 86832 M54.31 recent inc in symptoms.p lans to give it some timewill enc PT if persists. has had steroid injections in the past, not too helpful Mixed hyperlipidemia 267 253707 E78.2 is starting statin rpt lipids in 3mo [id number] Josh Langford MD , [facility], [address] [place] [address] 12/12/2020 14:27:04 12/12/2020 15:32:15 Active or passive immunization 883902162 Z23 Myalgia/my ositis - multiple 181784491 M79.10 Just started statin a few wks ago? statin related?St op atorvastat in, will ck labs Pain of mu ltiple joints 74670096 M25.50 pt requesting screen for Lyme/ tick borne illness Low back pain 854819686 M54.5 R sciatica flare more severe this episodeSxs persist, less severe but has not resolved.P refers no further FU at this time, prefers expectant management Has fu appt in 2-3 wks Increased frequency of urination 138011263 R35.0 Ultrasound showed PVR of 21 mLWas to see Urol but had to cx appt, enc him to r/s [id number] Josh Langford MD FP, [facility], [address] [place] [address] 01/09/2021 07:58:18 01/16/2021 10:55:32 Mixed hyperlipidemia 623571279 E78.2 Cholestero l is not at goalContin ue to work on diet and exercise as discussedH ad anahi wCleo atorvastat inWilling to try another statin again.. if sxs recur will not use statins in futureInte grated Nutrition today Prostate s pecific antigen above reference range 949833565 R97.20 Wakes once per night to urinateSom e hesitancyP SA 10, will refer to UrologyU/S of kidneys/bl adder normal PVR 21 mL in September Morbid obesity 226857712 E66.01 has lost 30-40 lbs in past 5 yrsexercis e limited due to OAdiscusse d dietary changes/ Integ Nutrition visit 01/09/21. 15 minutes spent, obesity code utilized. See separate integrated nutrition note for plan/goals set. Lumbago with sciatica 20 6746758 M54.41 Flare lasted 1 moBetter now, will start HEP again. Has had PT.Prefers no referral to PSSP for now [id number] Gloria Grimes DO , [facility], [address] [place] [address] 10/16/2021 07:49:43 10/16/2021 09:20:15 Morbid obesity 444430499 E66.01 has lost 30-40 lbs in past 5 yrsexercis e limited due to OAdiscusse d dietary changes/ Integ Nutrition visit 01/09/21. Adult heal th examination 881248405 Z00.00 Encouraged routine exercise & well rounded dietSees Dentist/Op tometrist routinely- colonoscop y UTD-comple jewel Goodwin at outside pharmacy-1 0 yr ASCVD risk- 26%, recommende d resuming statin-Enc ouraged completion of ACP/HCP/MO LST Forms/ discuss w. family Counseling 238042968 Z71 .9 including cardiovasc ular risk reduction counseling Depression screening 171 860872 Z13.31 depression screening tool administer ed, entered into emr, scored and discussed, time greater than 7.5 minutesNEG Screening for alcohol abuse 822265379 Z13.39 NEG Mixed hyperlipidemia 267 496619 E78.2 Cholestero l is not at goalContin ue to work on diet and exercise as discussedW illing to restart statin Caregiver role strain 12 3418694 Z73.3 jennifer with dementia2 children leave nearby but with limited ability to helpOutrea W [facility] for consultati [facility]/ assistance Urged FU in 4-6 wks Lumbago with sciatica 20 7222124 M54.41 Flare lasted 1 moBetter now, will start HEP again. Has had PT.Prefers no referral to PSSP for now Neck pain 52521650 M54.2 R sided neck pain w/o s/s of radiculopa thyPT referral placedSeem s muscular [id number] Gloria Grimes DO FP, [facility], [address] [place] [address] 11/13/2021 08:53:01 11/13/2021 09:46:49 Mixed hyperlipidemia 791804628 E78.2 Cholestero l is not at goalContin ue to work on diet and exercise as discussedW illing to restart statin (had muscle cramps w. atorvastat in)If se's develop on pravastati n, please call and let me know you chose to stop it. Caregiver role strain 12 9005679 Z73.3 jennifer with dementia2 children leave nearby but with limited ability to helpW [facility] to do home assessment in SeptDiscus sed Memory Care Initit thru [facility]: Gave brochure to contactOff ered Consult w. Dr Kimi umaña an: they are thinking about it. Neck pain 62972868 M54.2 R sided neck pain w/o s/s of radiculopa thyPT referral placed at last visit but chose to do HEP instead; declines PT at this time [id number] Ana Kaminski MD FP, [facility] [address] [place] [address] 01/17/2022 11:27:39 01/17/2022 16:00:13 Active or passive immunization 304999633 Z23 [id number] Ana Kaminski MD , [facility], [address] [place] [address] 09/04/2022 12:32:49 09/04/2022 15:03:42 Low back pain 275817134 M54.50 recurrent, no recent injury or pain in recent yrsRad to R hip and affecting R knee, limpingWil l start with PTConsider XR Lumbar spine, PSSP consult if pain persists/w orsensWoul d consider trial of steroid inj IF pain persists and is a good candidate. No radicular sxs nowNot taking OtC meds, not helpful Morbid obesity 672731011 E66.01 has maintained wt loss of >50 lbs in past 5 yrsexercis e limited due to OAcongrat on his efforts Intermitte nt claudication 56622706 I73.9 borderline ABIs in 2019 with mild plaque buildup.sx s remain stable, no change.sta rt ASA , as above.no need for surgical interventi on at this time. [id number] Ana Kaminski MD , [facility], [address] [place] [address] 08/27/2023 14:37:59 08/27/2023 16:13:16 Paroxysmal atrial fibrillation 017480076 I48.0 New dxEKG ConfirmsAs xDiscussed dx/ importance of treating/ stroke risk and prevention Agrees to txAg[facility] Intermitte nt claudication 35418130 I73.9 borderline ABIs in 2019 with mild plaque buildup.Re ports he is overall asx, plans to walk morestart ASA , as above.no need for surgical interventi on at this time. Increased frequency of urination 262837582 R35.0 2020 Ultrasound showed PVR of 21 mLHad elev PSA in 2020, ref to Urology, but did not FUPlan close FU in next few wks Normal grief reaction 27 5880005 F43.20 last week after long illnesshe is grieving appropriat josemanuel; but struggling . not sleeping wellHas family/fri ends and good supportsDe clines support groupDecli elfego [facility] today, ok w. phone call next weekDeclin es rx for insomnia Long-term current use of anticoagulant 338960131 Z79.01 started DOAC today [id number] Ana Kaminski MD , [facility] [address] [place] [address] 09/08/2023 10:21:17 09/08/2023 12:26:41 Chronic atrial fibrillation 024387218 I48.20 Please contact [facility] [place] Cardiol for appt!Yaneth nue your metoprolol dailyYou agreed to a trial of coumadin; We need INR checks and gradual dosingNurs ing will discuss more details about coumadin with youFU with in 3 wks CHADDs vasc= 4INR Range 2-3 Normal grief reaction 27 6737316 F43.20 last week after long illnessgri eving appropriat josemanuel; but struggling . not sleeping wellHas family/fri ends and good supportsDe clines support groupPlan FU in 3 wks Lumbar radiculopathy 128 064129 M54.16 chronic but this feels different and worsewill ck XR and consult w PSSP [id number] Ana Kaminski MD , [facility], [address] [place] [address] 09/24/2023 08:10:35 09/25/2023 11:58:09 Paroxysmal atrial fibrillation 823388192 I48.0 [id number] Ana Kaminski MD , [facility], [address] [place] [address] 10/02/2023 09:49:06 10/02/2023 20:24:51 Paroxysmal atrial fibrillation 825311645 I48.0 [id number] Ana Kaminski MD , [facility], [address] [place] [address] 10/09/2023 09:30:58 10/10/2023 14:16:18 Paroxysmal atrial fibrillation 218173544 I48.0 [id number] Ana Kaminski MD , [facility], [address] [place] [address] 10/16/2023 08:31:20 10/21/2023 13:03:39 Paroxysmal atrial fibrillation 311935113 I48.0 [id number] Ana Kaminski MD , [facility], [address] [place] [address] 10/23/2023 10:24:37 10/29/2023 13:36:42 Paroxysmal atrial fibrillation 164929105 I48.0 [id number] Ana Kaminski MD , [facility], [address] [place] [address] 10/30/2023 08:57:11 11/03/2023 11:17:13 Paroxysmal atrial fibrillation 276335352 I48.0 [id number] Ana Kaminski MD , [facility] [address] [place] [address] 11/06/2023 10:27:00 11/09/2023 12:55:35 Paroxysmal atrial fibrillation 065815643 I48.0 [id number] Ana Kaminski MD , [facility], [address] [place] [address] 11/20/2023 13:49:01 11/26/2023 20:54:59 Paroxysmal atrial fibrillation 158399370 I48.0 [id number] Ana Kaminski MD , [facility], [address] [place] [address] 11/27/2023 14:29:39 11/27/2023 18:33:23 Paroxysmal atrial fibrillation 625835815 I48.0 Active or passive immunization 067990412 Z23 [id number] Ana Kaminski MD , [facility], [address] [place] [address] 12/04/2023 09:32:44 12/09/2023 12:08:44 Paroxysmal atrial fibrillation 243941639 I48.0 [id number] Ana Kaminski MD , [facility], [address] [place] [address] 12/11/2023 08:24:28 12/15/2023 10:02:55 Paroxysmal atrial fibrillation 566076725 I48.0 [id number] Ana Kaminski MD , [facility] [address] [place] [address] 12/18/2023 08:39:41 12/23/2023 19:00:35 Paroxysmal atrial fibrillation 322931952 I48.0 [id number] Ana Kaminski MD , [facility] [address] [place] [address] 12/25/2023 08:58:58 12/29/2023 13:15:48 Paroxysmal atrial fibrillation 582263726 I48.0 [id number] Ana Kaminski MD , [facility] [address] [place] [address] 01/01/2024 09:48:44 01/01/2024 11:52:55 Paroxysmal atrial fibrillation 374381048 I48.0 [id number] Ana Kaminski MD , [facility], [address] [place] [address] 01/08/2024 09:16:53 01/12/2024 14:24:41 Paroxysmal atrial fibrillation 215859241 I48.0 [id number] Ana Kaminski MD , [facility], [address] [place] [address] 01/15/2024 08:12:02 01/16/2024 13:50:41 Paroxysmal atrial fibrillation 875283416 I48.0 [id number] Ana Kaminski MD , [facility] [address] [place] [address] 01/25/2024 10:20:00 01/26/2024 13:41:10 Paroxysmal atrial fibrillation 414619885 I48.0 [id number] Ana Kaminski MD , [facility] [address] [place] [address] 02/01/2024 10:06:35 02/02/2024 12:54:30 Long-term current use of anticoagulant 233606896 Z79.01 [id number] Ana Kaminski MD , [facility], [address] [place] [address] 02/05/2024 08:04:52 02/10/2024 15:51:45 Paroxysmal atrial fibrillation [id number] I48.0 [id number] Ana Kaminski MD , [facility] [address] [place] [address] 02/10/2024 15:05:48 02/15/2024 14:22:30 Paroxysmal atrial fibrillation 085900845 I48.0 [id number] Ana Kaminski MD , [facility] [address] [place] [address] 03/01/2024 10:30:21 03/01/2024 11:55:46 Pain of right knee joint 8860973891 56826 M25.561 using cane. signif pain. would be open to steroid injection if amenable.w ill ck XR and get sports med consult Prostate s pecific antigen above reference range 573718509 R97.20 Wakes 1-2x night to urinate with some obstructiv e sxsPSA is very elevated Long-term current use of anticoagulant 013961147 Z79.01 on coumadin Paroxysmal atrial fibrillation 913132354 I48.0 rate controlled on metoprolol , AC with warfarin.W ill refer for cardiology consult, has not yet seenNo syncope, SOBWhen insur changes, will switch to DOAC (currently too costly) [id number] Ana Kaminski MD , [facility] [address] [place] [address] 03/08/2024 08:51:21 03/10/2024 14:34:36 Paroxysmal atrial fibrillation 059010142 I48.0 Start Xarelto [id number] Ana Kaminski MD , [facility] [address] [place] [address] 03/15/2024 08:11:01 03/15/2024 11:46:14 Paroxysmal atrial fibrillation 198050644 I48.0 Start Xarelto [id number] Ana Kaminski MD , [facility] [address] [place] [address] 03/25/2024 07:50:43 03/25/2024 10:30:27 Paroxysmal atrial fibrillation 131848729 I48.0 [id number] Ana Kaminski MD , [facility] [address] [place] [address] 04/01/2024 08:23:18 04/04/2024 14:02:30 Paroxysmal atrial fibrillation [id number] I48.0 [id number] Ana Kaminski MD , [facility] [address] [place] [address] 04/08/2024 08:10:34 04/08/2024 12:24:27 Paroxysmal atrial fibrillation 663777051 I48.0 [id number] DEBBIE RANDHAWA NP , [facility] [address] [place] [address] 04/15/2024 08:35:36 04/15/2024 11:14:28 Paroxysmal atrial fibrillation 286099642 I48.0 [id number] DEBBIE RANDHAWA NP , [facility] [address] [place] [address] 04/22/2024 10:51:21 04/22/2024 11:12:36 Paroxysmal atrial fibrillation 706229989 I48.0 [id number] Ana Kaminski MD , [facility] [address] [place] [address] 05/06/2024 07:56:29 05/06/2024 12:04:14 Paroxysmal atrial fibrillation 529436337 I48.0 [id number] German Mendoza MD Sports Medicine, [facility] [address] [place] [address] 07/05/2024 08:33:34 07/26/2024 12:35:26 Pain of right knee region 0202021667 62583 M25.561 Rashmi is an 78-year-ol d male [...] weeks if his symptoms are not improving. [id number] Ana Kaminski MD , [facility] [address] [place] [address] 05/27/2024 10:08:59 05/30/2024 11:22:28 Paroxysmal atrial fibrillation 977414975 I48.0 [id number] Hadley Peck MD , [facility] [address] [place] [address] 06/08/2024 09:14:27 06/09/2024 15:00:52 Long-term current use of anticoagulant 807268317 Z79.01 No abn bleeding or bruising Paroxysmal atrial fibrillation 139100196 I48.0 Chronic atrial fibrillati on managed with [...] PCP in 6 mos. Retention of urine 04547 4002 R33.9 Recent urinary tract infection treated with antibiotic s. Menon catheter in place due to urinary retention. Expresses discomfort and desire for catheter removal. Urine output is adequate but appears dark. Catheter removal scheduled for this week at [facility]. - Increase water intake- Schedule appointmen t with urologist for catheter management and further evaluation - Provide contact informatio n for Dr. Arguelles, the urologist previously referred to Prostate s pecific antigen above reference range 704720810 R97.20 12/12/2020 10.47 ng/ml01/09 8.5 NG/ML02/08 29.38 NG/ML - Refer to urologist for further evaluation (Dr Arguelles [[facility] [place]]) Bereavement 03207668 Z63 .4 Experienci ng significan t grief [...] and healthcare management . Will send case. [id number] Ana Kaminski MD , [facility] [address] [place] [address] 06/17/2024 08:32:39 06/17/2024 11:18:25 Paroxysmal atrial fibrillation [id number] I48.0 [id number] Ana Kaminski MD , [facility], [address] [place] [address] 06/24/2024 08:20:13 06/29/2024 12:32:33 Paroxysmal atrial fibrillation [id number] I48.0 [id number] Ana Kaminski MD , [facility], [address] [place] [address] 07/01/2024 08:54:40 07/05/2024 11:41:54 Paroxysmal atrial fibrillation [id number] I48.0 [id number] Ana Kaminski MD , [facility], [address] [place] [address] 07/08/2024 10:01:20 07/11/2024 10:59:33 Paroxysmal atrial fibrillation [id number] I48.0 [id number] Ana Kaminski MD , [facility], [address] [place] [address] 07/15/2024 14:01:57 07/18/2024 14:47:19 Paroxysmal atrial fibrillation [id number] I48.0 [id number] Ana Kaminski MD , [facility], [address] [place] [address] 07/22/2024 14:05:02 07/25/2024 11:03:24 Paroxysmal atrial fibrillation [id number] I48.0 [id number] Ana Kaminski MD , [facility], [address] [place] [address] 07/29/2024 15:25:26 08/01/2024 08:08:31 Paroxysmal atrial fibrillation [id number] I48.0 [id number] DEBBIE RANDHAWA NP , [facility], [address] [place] [address] 08/12/2024 15:39:38 08/16/2024 15:39:50 Paroxysmal atrial fibrillation [id number] I48.0 [id number] Quita Gómez MD , [facility], [address] [place] [address] 09/02/2024 08:23:51 09/09/2024 14:27:04 Paroxysmal atrial fibrillation [id number] I48.0 [id number] Quita Gómez MD , [facility], [address] [facility] [place] [address] 09/30/2024 08:26:29 09/30/2024 08:39:52 Paroxysmal atrial fibrillation [id number] I48.0 Health Concerns Section Related Observation LastModified by Organization Detai ls LastModified Time None Recorded Concern Status LastModified by Organization Details LastModified Time None Recorded Advance Directives Directive Y: Payers Insurance Date Sequence Insurance Name Policy Number Policy Jean Covered Member ID Jean Member ID Guarantor Name 09/30/2024 1 [place] [employer] Rashmi De La Rosa Melissa [id number] Rashmi De La Rosa Melissa 09/30/2024 2 [place] [id number] Rashmi De La Rosa Melissa [id number] Rashmi De La Rosa Melissa 10/09/2023 1 [facility] [place] Rashmi De La Rosa Melissa [id number] Rashmi De La Rosa Melissa 10/09/2023 1 [facility] - MEDICARE PREFERRED (MEDICARE REPLACEMENT PPO) [id number] Rashmi De La Rosa Melissa [id number] Rashmi De La Rosa Melissa 10/09/2023 2 [place] [employer] G[employer]MENT SERVICES Rashmi De La Rosa Meilssa [id number] Rashmi De La Rosa Melissa 01/21/2000 1 *SELF PAY* Da viiveth De La Rosa Melissa 10/09/2023 1 [facility] (PPO) [id number] Rashmi De La Rosa Melissa [id number] Rashmi De La Rosa Melissa 10/09/2023 1 [place] (MEDICARE REPLACEMENT HMO) [id number] Rashmi De La Rosa Melissa [id number] Rashmi De La Rosa Melissa
--- NOTE | 2024-09-30 14:51 | A.OFFVIS_ITS ---
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 He is seen for the following urologic conditions - BPH with incomplete bladder emptying PVR follow-up Significant improvement on combination therapy Continue with terazosin 5 mg p.o. q.h.s. Six-month follow-up Lower urinary tract symptoms Episode of retention 06/07 emergency room Initial successful voiding trial however failed later that day and catheter replaced Placed on combination therapy finasteride terazosin Office cystoscopy 09/07 open bladder neck PFSH Social History Household Members: Spouse Housing: House Do you presently have visiting nurse or other home services: Yes ([facility]) Patient Tobacco Use Status: Never used Tobacco service: No Review of Systems Const Denies chills and Denies fever(s) Card Reports no additional complaints and Denies syncope Resp Denies cough GI Denies abdominal pain and Denies heartburn Reports as per HPI and Denies change in libido Neuro Denies syncope Psych Denies change in libido Endo Denies change in libido Physical Exam Const General: cooperative, healthy appearing, comfortable and no acute distress Orientation/consciousness: patient oriented x3 HEENT Face and sinus: Yes normal facial exam Mouth: moist mucous membranes Neck Neck: Yes normal visual inspection, Yes full ROM and Yes trachea midline Chest Chest palpation & inspection: normal inspection of the chest Resp Effort & Inspection: normal respiratory effort, able to speak in complete sentences and no respiratory distress GI Inspection: Yes normal to inspection Back/Spine/Pelvis Cervical Spine: normal cervical lordosis Thoracic/Lumbar Spine: thoracic and lumbar spine normal to inspection Skin General skin exam: no rashes or lesions noted Neuro General: patient oriented x3, gait normal, tone normal and moves all extremities Extrem General: Yes normal to inspection and Yes capillary refill normal Office Procedures Post Void Residual Post Residual Void Post Void Residual (PVR): 63 [id number] Void Residual by ultrasound Assessment & Plan Assessment & Plan (1) Urinary retention: Code(s): R33.9 - Retention of urine, unspecified Category: Medical (2) Bladder outlet obstruction: Code(s): N32.0 - Bladder-neck obstruction Category: Medical Plan Six-month follow-up Medications: New finasteride 5 mg PO DAILY 90 tabs 1RF 90 days Changed From terazosin 5 mg PO BEDTIME 30 days 30 caps 1RF N40.1 - Benign prostatic hyperplasia with lower urinary tract symptoms, R33.9 - Retention of urine, unspecified, R35.0 - Frequency of micturition To terazosin 5 mg PO BEDTIME 90 caps 1RF 90 days N40.1 - Benign prostatic hyperplasia with lower urinary tract symptoms, R33.9 - Retention of urine, unspecified, R35.0 - Frequency of micturition Patient Instructions: This note is constructed using voice recognition software. While every effort has been made to ensure accuracy tight cooper errors may have been included. Imaging studies, laboratory and physical exam results were discussed and reviewed in detail. No major barriers to patient understanding were identified. An opportunity to ask questions regarding the treatment plan was provided. All questions were answered. The patient expressed understanding and agreement with the above treatment plan. The patient is aware they should contact our office by phone for worsening of their current condition or the appearance of new urologic symptoms. Compliance is encouraged with any medications and followup testing that is ordered. It is a privilege to participate in the urologic care of your patient. If you have any questions or concerns regarding treatment for the above conditions, or other urologic issues, please do not hesitate to contact me. The office telephone contact is [phone]. Sincerely, Dr Blake Arguelles MD, [facility] - Urology Compassionate Specialist Care for the Genitourinary System Coding Level of Care Code Est Pt Level 3 (37276) Complex EM visit Add On G2211 Diagnoses Urinary retention R33.9 Bladder outlet obstruction N32.0 CPT Codes Post Residual Void - PVR CPT Code: 81450-[id number] Void Residual by ultrasound ([id number])
== END 2024-09-30 15:18 | disposition home or self-care (01) ==
LOC: HO.HUSH 14:45
PROVIDERS: PCP Family Medicine; Visit Provider Urology
DX: R33.9 Retention of urine, unspecified (principal); N32.0 Bladder-neck obstruction
CPT/HCPCS: 99213; G2211

== ENCOUNTER → 2024-09-30 14:45 | Outpatient (BNVA) | payer MEDICARE, SELFPAY | PROVIDERS: PCP Family Medicine; Visit Provider Urology | DX: N32.0 Bladder-neck obstruction (principal); R33.9 Retention of urine, unspecified | CPT/HCPCS: 51798; 99212 ==